=== PATIENT | female | born 1985 | race Caucasian/White ===

== ENCOUNTER 2022-08-17 10:40 | Outpatient (OUT) | payer MEDICAID, SELFPAY ==
[2022-08-17 11:05] LABS: Adenovirus F 40/41 NOT DETECTED (NOT DETECTE); Astrovirus NOT DETECTED (NOT DETECTE); Campylobacter NOT DETECTED (NOT DETECTE); Cryptosporidium NOT DETECTED (NOT DETECTE); Cyclospora cayetanensis NOT DETECTED (NOT DETECTE); E coli 0157 NOT DETECTED (NOT DETECTE); Entamoeba histolytica NOT DETECTED (NOT DETECTE); Enteroaggregative E.coli NOT DETECTED (NOT DETECTE); Enterotoxigenic E. coli NOT DETECTED (NOT DETECTE); Giardia lamblia NOT DETECTED (NOT DETECTE); Norovirus GI/GII NOT DETECTED (NOT DETECTE); Plesiomonas shigelloides NOT DETECTED (NOT DETECTE); Rotavirus A NOT DETECTED (NOT DETECTE); Salmonella NOT DETECTED (NOT DETECTE); Sapovirus NOT DETECTED (NOT DETECTE); Shiga-like toxin-producing E.C NOT DETECTED (NOT DETECTE); Shigella/Enteroinvasive E.coli NOT DETECTED (NOT DETECTE); Vibrio NOT DETECTED (NOT DETECTE); Vibrio cholerae NOT DETECTED (NOT DETECTE); Yersinia enterocolitica NOT DETECTED (NOT DETECTE)
[2022-08-17 14:43] LABS: Enteropathogenic E.coli DETECTED (NOT DETECTE)
== END 2022-08-17 10:41 | disposition home or self-care (01) ==
LOC: LAB 10:47
PROVIDERS: PCP Nurse Practitioner Family; Visit Provider Nurse Practitioner Family
DX: K58.9 Irritable bowel syndrome, unspecified (principal)
CPT/HCPCS: 87507

== ENCOUNTER 2022-09-01 10:50 | Outpatient (OUT) | payer MEDICAID, SELFPAY ==
[2022-09-07 11:42] LABS: Adenovirus F 40/41 NOT DETECTED (NOT DETECTE); Astrovirus NOT DETECTED (NOT DETECTE); Campylobacter NOT DETECTED (NOT DETECTE); Cryptosporidium NOT DETECTED (NOT DETECTE); Cyclospora cayetanensis NOT DETECTED (NOT DETECTE); Entamoeba histolytica NOT DETECTED (NOT DETECTE); Enteroaggregative E.coli NOT DETECTED (NOT DETECTE); Enterotoxigenic E. coli NOT DETECTED (NOT DETECTE); Giardia lamblia NOT DETECTED (NOT DETECTE); Norovirus GI/GII NOT DETECTED (NOT DETECTE); Plesiomonas shigelloides NOT DETECTED (NOT DETECTE); Rotavirus A NOT DETECTED (NOT DETECTE); Salmonella NOT DETECTED (NOT DETECTE); Sapovirus NOT DETECTED (NOT DETECTE); Shiga-like toxin-producing E.C NOT DETECTED (NOT DETECTE); Shigella/Enteroinvasive E.coli NOT DETECTED (NOT DETECTE); Vibrio NOT DETECTED (NOT DETECTE); Vibrio cholerae NOT DETECTED (NOT DETECTE); Yersinia enterocolitica NOT DETECTED (NOT DETECTE)
[2022-09-07 11:43] LABS: Enteropathogenic E.coli DETECTED (NOT DETECTE)
== END 2022-09-01 10:51 | disposition home or self-care (01) ==
PROVIDERS: PCP Nurse Practitioner Family; Visit Provider Nurse Practitioner Family
DX: K58.9 Irritable bowel syndrome, unspecified (principal)
CPT/HCPCS: 87493; 87507

== ENCOUNTER 2022-10-20 14:20 | Outpatient (OUT) | payer MEDICAID, SELFPAY ==
[2022-10-20 16:23] LABS: Bilirubin Urine NEGATIVE (NEGATIVE); Blood Urine NEGATIVE (NEGATIVE); Clarity Urine CLEAR (CLEAR); Color Urine YELLOW (YELLOW); Glucose Urine UA NEGATIVE (NEGATIVE); Ketones Urine NEGATIVE (NEGATIVE); Leukocyte Esterase Urine NEGATIVE (NEGATIVE); Nitrite Urine NEGATIVE (NEGATIVE); Protein Urine NEGATIVE (NEG/TRACE); Specific Gravity Urine >=1.030 (1.005-1.025); Urobilinogen Urine 0.2 EU/dL (0.2-1.0)
[2022-10-20 16:26] LABS: Urine Microscopic Indicated NO
== END 2022-10-20 14:21 | disposition home or self-care (01) ==
LOC: LAB 14:23
PROVIDERS: PCP Nurse Practitioner Family; Visit Provider Nurse Practitioner Family
DX: R10.84 Generalized abdominal pain (principal)
CPT/HCPCS: 81003

== ENCOUNTER 2022-10-20 16:33 | Outpatient (REF) | payer MEDICAID, SELFPAY ==
[2022-10-27 20:08] LABS: Age Gdln ACOG Testing Note (.); Chlamydia, NAA Negative (Negative); Gonococcus, NAA Negative (Negative); HPV Aptima Negative (Negative); IGP,CtNg,AptimaHPV,rfx16/18,45 Note (.)
== END 2022-10-20 16:34 | disposition home or self-care (01) ==
LOC: LAB 16:33
PROVIDERS: PCP Nurse Practitioner Family; Visit Provider Nurse Practitioner Family
DX: Z12.4 Encounter for screening for malignant neoplasm of cervix (principal)
CPT/HCPCS: 87624; G0145

== ENCOUNTER 2023-02-01 00:37 | Emergency (ER) | payer MEDICAID, SELFPAY ==
[2023-02-01 00:41] VITALS: BP 136/81; PULSE 97; RESP 18; TEMP 36.6; O2SAT 98; BMI 39.4
--- NOTE | 2023-02-01 01:00 | ED_ITS ---
HPI - Dental/Oral General Chief complaint: Dental/Oral Stated complaint: DENTAL PAIN Time Seen by Provider: 02/01/23 00:54 Source: patient Mode of arrival: walk-in Limitations: no limitations History of Present Illness HPI Narrative: presents with dental abscess. has been on clindamycin and now has increased pain. No fever or nausea. pain radiating into her left ear and neck Related Data Home Medications Medication Instructions Recorded Confirmed clindamycin HCl 150 mg capsule 450 mg PO TID 02/01/23 02/01/23 Allergies Allergy/AdvReac Type Severity Reaction Status Date / Time No Known Drug Allergies Allergy Verified 02/01/23 00:47 Review of Systems ROS Status of ROS 10 or more systems reviewed and unremark able except as noted in history and below Exam Constitutional Vital Signs, click to edit/add: Last Vital Signs Temp 97.9 F 02/01/23 00:41 Pulse 97 H 02/01/23 00:41 Resp 18 02/01/23 00:41 BP 136/81 02/01/23 00:41 Pulse Ox 98 02/01/23 00:41 Common normals: no apparent distress, average body habitus, oriented x3, no limitations, healthy appearing and alert HENMT Other: mild swelling along side her left lower molar Eye Common normals: EOMs intact bilaterally and conjunctivae normal Respiratory Common normals: normal respiratory effort and no retractions GI Common normals: Normal to inspection, nondistended, normoactive bowel sounds present, soft to palpation and non-tender Extremity Common normals: normal to inspection and full ROM Neuro Common normals: CN's II-XII intact bilaterally, moves all extremities, no focal motor deficits and no sensory deficits noted Psych Appearance: grossly normal Course Vital Signs Vital signs: Vital Signs Temperature 97.9 F 02/01/23 00:41 Pulse Rate 97 H 02/01/23 00:41 Respiratory Rate 18 02/01/23 00:41 Blood Pressure 136/81 02/01/23 00:41 Pulse Oximetry 98 02/01/23 00:41 Temperature 97.9 F 02/01/23 00:41 Pulse Rate 97 H 02/01/23 00:41 Respiratory Rate 18 02/01/23 00:41 Blood Pressure 136/81 02/01/23 00:41 Pulse Oximetry 98 02/01/23 00:41 MDM - Dental/Oral MDM Narrative Medical decision making narrative: patient presents with dental abscess that is progressing despite taking clindamycin. will switch to augmentin. She also has a yeast infection. Patient is to follow up with her dentist Discharge Plan Discharge Chief Complaint: Dental/Oral Clinical Impression: Vaginitis, Dental abscess Prescriptions / Home Meds: No Action clindamycin HCl 150 mg capsule 450 mg PO TID Instructions: Dental Abscess (ED), Vaginal Discharge (ED) Referrals: RIGOBERTO CHAVEZ [Primary Care Provider] - 1 week
[2023-02-01] MEDS: AMOXICILLIN/POTASSIUM CLAV 1 TAB TABLET PO (01:14)
[2023-02-01] MEDS: PREDNISONE 20 MG TABLET 40 MG PO (01:14)
== END 2023-02-01 01:17 | disposition home or self-care (01) ==
LOC: ER 00:44
PROVIDERS: Emergency Provider Internal Medicine; PCP Nurse Practitioner Family
DX: N76.0 Acute vaginitis (principal); K04.7 Periapical abscess without sinus
CPT/HCPCS: 99283

== ENCOUNTER 2023-03-08 15:28 | Outpatient (REF) | payer MEDICAID, SELFPAY ==
--- OUTSIDE RECORDS SUMMARY | 2023-03-08 15:38 | XMS_ITS | CCD ---
Author Name Unknown Address [address] [place] [address] Organization [facility] Care Team Providers Care Film Historian Name Role Phone AdánMj Garces Primary Care Provider CATES, MJ Referring Unavailable CATES, MJ Primary Care Unavailable CATES, MJ Referring Unavailable CATES, MJ Primary Care Unavailable CATES, MJ Referring Unavailable CATES, MJ Primary Care Unavailable CONTRERAS ARCE Admitting Unavailable CONTRERAS ARCE Attending Unavailable BIBI CHAVEZ Primary Care Unavailable ARLENE LEONE Admitting Unavailable ARLENE LEONE Attending Unavailable REQUEST, NONE LISTED Primary Care Unavaila ble SHYAM, DOMO SHERIDAN Consulting Unavailable SCOTT, BIBI Attending Unavailable SCOTT, BIBI Admitting Unavailable SCOTT, BIBI Primary Care Unavailable REQUEST, NONE LISTED Primary Care Unavaila ble KARASIK, DR CANTU Consulting Unavailable KARASIK, DR CANTU Attending Unavailable KARASIK, DR CANTU Admitting Unavailable REQUEST, DR NONE LISTED Primary Care Unavaila ble KARASIK, DR CANTU Consulting Unavailable KARASIK, DR CANTU Attending Unavailable KARASIK, DR CANTU Admitting Unavailable KARASIK, DR CANTU Attending Unavailable KARASIK, DR CANTU Admitting Unavailable REQUEST, NONE LISTED Primary Care Unavaila ble KARASIK, DR CANTU Consulting Unavailable ZIEBER, DR FRANCISCO Bell Consulting Unavailable BIBI CHAVEZ Attending Unavailable SCOTT, BIBI Admitting Unavailable BIBI CHAVEZ Consulting Unavailable REQUEST, NONE LISTED Primary Care Unavaila ble KARASIK, DR CANTU Attending Unavailable REQUEST, NONE LISTED Primary Care Unavaila ble KARASIK, DR CANTU Consulting Unavailable KARASIK, DR CANTU Admitting Unavailable SCOTT, BIBI Attending Unavailable SCOTT, BIBI Admitting Unavailable SCOTT, BIBI Primary Care Unavailable SCOTT, BIBI Consulting Unavailable SCOTT, BIBI Attending Unavailable SCOTT, BIBI Admitting Unavailable SCOTT, BIBI Primary Care Unavailable SCOTT, BIBI Consulting Unavailable SCOTT, BIBI Consulting Unavailable SCOTT, BIBI Attending Unavailable SCOTT, BIBI Admitting Unavailable SCOTT, BIBI Primary Care Unavailable KEVIN, DR FRANCISCO Bell Consulting Unavailable REQUEST, DR NONE LISTED Primary Care Unavaila ble PAY, DR ECKERT Attending Unavailable PAY, DR ECKERT Admitting Unavailable PAY, DR ECKERT Consulting Unavailable NILEvaristo Medrano Attending Unavailable SCOTT, BIBI S Referring Unavailable MD Moe Villagomez Attending Provider MIKE Chavez Primary Care Provider [phone] Moe Villagomez Attending Unavailable Moe Villagomez Admitting Unavailable Scott, Bibi Mariae Primary Care Unavailable Ortega Alberto Unavailable Allergies Allergy Classification Reported Allergen(s) Allergy Type Date of Onset Reaction(s) Facility (2 sources) Latex Propensity to adverse reactions to drug [address] [place] [address] (2 sources) Latex Drug allergy (disorder) [address] [place] [address] Repository (1 source) Nitrofurantoin Drug Allergy [facility] Repository (1 source) No Known Medication Allergies; Translations: [No Known Medication Allergies] Propensity to adverse reactions (disorder) [facility] Repository Medications Current Medications Medication Drug Class(es) Dates Sig (Normalized) Sig (Original) acetaminophen 500 mg oral tablet (2 sources) Start: 07-24-2019 End: 07-31-2019 acetaminophen (APAP EXTRA STRENGTH) 500 MG tablet Indications: Acute right-sided low back pain with right-sided sciatica Take 2 tabs every 8 hours as needed for pain. DO NOT exceed 4 grams in 24 hours. 42 tablet 0 07/24/2019 07/31/2019 Active cyclobenzaprine hydrochloride 10 mg oral tablet (2 sources) Muscle Relaxant Start: 07-15-2019 take 1 tablet by mouth three times daily cyclobenzaprine (FLEXERIL) 10 MG tablet TAKE 1 TABLET BY MOUTH THREE TIMES A DAY 0 07/15/2019 Active predniSONE 10 mg oral tablet (2 sources) Start: 07-24-2019 take 6 tablets by mouth once daily in the morning, then take 1 tablet by mouth once daily, then take 2 tablets by mouth once daily, then take 3 tablets by mouth once daily, then take 4 tablets by mouth once daily, then take 5 tablets by mouth predniSONE (DELTASONE) 10 MG tablet Indications: Acute right-sided low back pain with right-sided sciatica Take six tabs by mouth QAM on day 1, five tabs day 2, four tabs day 3, three tabs day 4, two tabs day 5, and one tab day 6. 21 tablet 0 07/24/2019 Active Problems Active Problems Problem Classification Problem Date Documented Da te Episodic/Chronic Genitourinary symptoms and ill-defined conditions (8 sources) Frequency of micturition; Translations: [Dysuria] Onset: 11-22-2020 Episodic Malaise and fatigue (4 sources) Other fatigue; Translations: [OTHER FATIGUE] Onset: 10-04-2021 Episodic Noninfectious gastroenteritis (2 sources) Noninfective gastroenteritis and colitis, unspecified; Translations: [Noninfective gastroenteritis and colitis, unspecified] Onset: 11-08-2021 Episodic Other gastrointestinal disorders (1 source) Irritable bowel syndrome without diarrhea; Translations: [IRRITABLE BOWEL SYND W/O DIARRHEA] Onset: 10-05-2021 Chronic Other gastrointestinal disorders (1 source) Diarrhea, unspecified; Translations: [DIARRHEA UNSPECIFIED] Onset: 10-05-2021 Episodic Other gastrointestinal disorders (1 source) Change in bowel habit; Translations: [Change in bowel habit] Onset: 10-16-2022 Episodic Unclassified (1 source) THROMBOCYTOSIS UNSPECIFIED; Translations: [THROMBOCYTOSIS UNSPECIFIED] Onset: 10-05-2021 Unclassified (3 sources) COUGH, UNSPECIFIED; Translations: [COUGH, UNSPECIFIED] Onset: 02-08-2021 Unclassified (4 sources) CONTACT W/AND (SUSP) EXPOS COVID-19; Translations: [CONTACT W/AND (SUSP) EXPOS COVID-19] Onset: 02-08-2021 Past or Other Problems Problem Classification Problem Date Documented Date Episodic/Chronic Abdominal pain (6 sources) Epigastric pain; Translations: [Pelvic and perineal pain] Onset: 01-17-2021 Episodic Cancer of cervix (1 source) Atypical squamous cells of undetermined significance on cytologic smear of cervix (ASC-US); Translations: [ASC US ON CYTOLOGIC SMEAR OF CERVIX] Onset: 07-06-2021 Episodic Chronic obstructive pulmonary disease and bronchiectasis (1 source) Bronchitis, not specified as acute or chronic; Translations: [BRONCHITIS NOT SPEC ACUTE/CHRON] Onset: 02-08-2021 Episodic Diabetes mellitus without complication (1 source) Other abnormal glucose; Translations: [OTHER ABNORMAL GLUCOSE] Onset: 07-14-2021 Episodic Immunizations and screening for infectious disease (1 source) Encounter for screening for human papillomavirus (HPV); Translations: [ENC SCREENING HUMAN PAPILLOMAVIRUS] Onset: 12-26-2020 Episodic Other female genital disorders (5 sources) Other specified noninflammatory disorders of vagina; Translations: [OTH SPEC NONINFLAMMATORY D/O VAGINA] Onset: 12-06-2020 Episodic Other screening for suspected conditions (not mental disorders or infectious disease) (4 sources) Encounter for screening for malignant neoplasm of cervix; Translations: [ENC SCREENING MALIG NEOPLASM CERV] Onset: 12-21-2020 Episodic Other upper respiratory infections (1 source) Acute pharyngitis, unspecified; Translations: [ACUTE PHARYNGITIS UNSPECIFIED] Onset: 03-20-2021 Episodic Residual codes; unclassified (1 source) Acquired absence of both cervix and uterus; Translations: [ACQUIRED ABSENCE BOTH CERVIX AND UTERUS] Onset: 11-24-2020 Episodic Spondylosis; intervertebral disc disorders; other back problems (1 source) Acute back pain with sciatica; Translations: [Acute right-sided low back pain with right-sided sciatica] Episodic Unclassified (1 source) CONTACT W/AND (SUSP) EXPOS COVID-19; Translations: [CONTACT W/AND (SUSP) EXPOS COVID-19] Onset: 03-17-2021 Unclassified (1 source) COUGH, UNSPECIFIED; Translations: [COUGH, UNSPECIFIED] Onset: 02-07-2021 Results Test Name Value Interpretation Reference Range Facility Amphetamine Screen Ql (U)Ord ered By: Moe Villagomez on 10-16-2022 Amphetamines Ql (U) Negative Negative [facility] Barbiturates [Presence] in U rine by Screen methodOrdered By: Moe Villagomez on 10-16-2022 Barbiturates Screen Ql (U) Negative Negative [facility] Benzodiazepines Screen Ql (U )Ordered By: Moe Villagomez on 10-16-2022 Benzodiazepines Ql (U) Negative Negative [facility] Benzoylecgonine [Presence] i n Urine by Screen methodOrdered By: Moe Villagomez on 10-16-2022 Benzoylecgonine Screen Ql (U) Negative Negative [facility] Cannabinoids [Presence] in U rine by Screen methodOrdered By: Moe Villagomez on 10-16-2022 Cannabinoids Screen Ql (U) Positive Negative [facility] Comment on above: These are unconfirme d results and should not be used for legal purposes. Drug Cut-Off Concentration: AMPH 1000 ng/mL MURPHY 200 ng/mL MESHA 200 ng/mL COCM 300 ng/mL OP 300 ng/mL PCP 25 ng/mL THC 20 ng/mL Drug Screen,Urineon 10-17-19 Amphetamine Screen,Urine Negative Normal Negative [facility] Comment on above: Performed By: #### U RDS #### [address] Barbiturate Screen,Urine Negative Normal Negative [facility] Comment on above: Performed By: #### U RDS #### [address] Benzodiazepines Screen,Urine Negative Normal Negative [facility] Comment on above: Performed By: #### U RDS #### [address] Cannabinoid Screen,Urine Positive High Negative [facility] Comment on above: Result Comment: Thes e are unconfirmed results and should not be used for legal purposes. Drug Cut-Off Concentration: AMPH 1000 ng/mL MURPHY 200 ng/mL MESHA 200 ng/mL COCM 300 ng/mL OP 300 ng/mL PCP 25 ng/mL THC 20 ng/mL PERFORMED BY: [place] [address] PATHOLOGIST MIXING ENGINEER JAILENE MATIAS M.D. Performed By: #### U RDS #### [address] Cocaine Screen,Urine Negative Normal Negative [facility] Comment on above: Performed By: #### U RDS #### [facility] [address] [place] [address] Opiate Screen,Urine Negative Normal Negative [facility] Comment on above: Performed By: #### U RDS #### [facility] [address] Phencyclidine Screen,Urine Negative Normal Negative [facility] Comment on above: Performed By: #### U RDS #### [facility] [address] [place] [address] Gastrointestinal Profile, PC [place] 10-16-2022 Adenovirus F 40/41 Not detected Normal Not Detected [facility] Comment on above: Order Comment: SOURC E OF SPECIMEN: stool Performed By: #### G I PROFILE, STL #### [facility] , #### CUSTOOL #### [facility] [address] [place] [address] Astrovirus Not detected Normal Not Detected [facility] Comment on above: Order Comment: SOURC E OF SPECIMEN: stool Performed By: #### G I PROFILE, STL #### [facility] , #### CUSTOOL #### [facility] [address] [place] [address] C Difficile Toxin A/B Not detected Normal Not Detected [facility] Comment on above: Order Comment: SOURC E OF SPECIMEN: stool Performed By: #### G I PROFILE, STL #### [facility] , #### CUSTOOL #### [facility] [address] [place] [address] Campylobacter Not detected Normal Not Detected [facility] Comment on above: Order Comment: SOURC E OF SPECIMEN: stool Performed By: #### G I PROFILE, STL #### [facility] , #### CUSTOOL #### [facility] [address] [place] [address] Cryptosporidium Not detected Normal Not Detected [facility] Comment on above: Order Comment: SOURC E OF SPECIMEN: stool Performed By: #### G I PROFILE, STL #### [facility] , #### CUSTOOL #### [facility] [address] [place] [address] Cyclospora cayetanensis Not detected Normal Not Detected [facility] Comment on above: Order Comment: SOURC E OF SPECIMEN: stool Performed By: #### G I PROFILE, STL #### [facility] , #### CUSTOOL #### [facility] [address] [place] [address] [place] E coli O157 Not applicable Normal Not Detected [facility] Comment on above: Order Comment: SOURC E OF SPECIMEN: stool Performed By: #### G I PROFILE, STL #### [facility] , #### CUSTOOL #### [facility] [address] [place] [address] Entamoeba histolytica Not detected Normal Not Detected [facility] Comment on above: Order Comment: SOURC E OF SPECIMEN: stool Performed By: #### G I PROFILE, STL #### [facility] , #### CUSTOOL #### [facility] [address] [place] [address] [place] Enteroaggregative E coli Not detected Normal Not Detected [facility] Comment on above: Order Comment: SOURC E OF SPECIMEN: stool Performed By: #### G I PROFILE, STL #### [facility] , #### CUSTOOL #### [facility] [address] [place] [address] [place] Enteropathogenic E coli Not detected Normal Not Detected [facility] Comment on above: Order Comment: SOURC E OF SPECIMEN: stool Performed By: #### G I PROFILE, STL #### [facility] , #### CUSTOOL #### [facility] [address] [place] [address] [place] Enterotoxigenic E coli Not detected Normal Not Detecte d [facility] Comment on above: Order Comment: SOURC E OF SPECIMEN: stool Performed By: #### G I PROFILE, STL #### [facility] , #### CUSTOOL #### [facility] [address] [place] [address] Giardia lamblia Not detected Normal Not Detected [facility] Comment on above: Order Comment: SOURC E OF SPECIMEN: stool Performed By: #### G I PROFILE, STL #### [facility] , #### CUSTOOL #### [address] Norovirus GI/GII Not detected Normal Not Detected [facility] Comment on above: Order Comment: SOURC E OF SPECIMEN: stool Performed By: #### G I PROFILE, STL #### [facility] , #### CUSTOOL #### [facility] [address] [place] [address] Plesiomonas shigelloides Not detected Normal Not Detected [facility] Comment on above: Order Comment: SOURC E OF SPECIMEN: stool Performed By: #### G I PROFILE, STL #### [facility] , #### CUSTOOL #### [facility] [address] [place] [address] Rotavirus A Not detected Normal Not Detected [facility] Comment on above: Order Comment: SOURC E OF SPECIMEN: stool Performed By: #### G I PROFILE, STL #### [facility] , #### CUSTOOL #### [facility] [address] [place] [address] Salmonella Not detected Normal Not Detected [facility] Comment on above: Order Comment: SOURC E OF SPECIMEN: stool Performed By: #### G I PROFILE, STL #### [facility] , #### CUSTOOL #### [facility] [address] [place] [address] Sapovirus Not detected Normal Not Detected [facility] Comment on above: Order Comment: SOURC E OF SPECIMEN: stool Result Comment: Perf ormed at: - [facility] [id number] Intake Rn: Nela Mota MD, Phone: [phone] PERFORMED BY: [place] [address] PATHOLOGIST MIXING ENGINEER JAILENE MATIAS M.D. Performed By: #### G I PROFILE, STL #### [facility] , #### CUSTOOL #### [address] Jfyal-mlibv-oalmcefxn E coli Not detected Normal Not Detected [facility] Comment on above: Order Comment: SOURC E OF SPECIMEN: stool Performed By: #### G I PROFILE, STL #### [facility] , #### CUSTOOL #### [address] Shigella/Enteroinvasiv e E coli Not detected Normal Not Detected [facility] Comment on above: Order Comment: SOURC E OF SPECIMEN: stool Performed By: #### G I PROFILE, STL #### [facility] , #### CUSTOOL #### [facility] [address] [place] [address] Vibrio Not detected Normal Not Detected [facility] Comment on above: Order Comment: SOURC E OF SPECIMEN: stool Performed By: #### G I PROFILE, STL #### [facility] , #### CUSTOOL #### [facility] [address] [place] [address] Vibrio cholerae Not detected Normal Not Detected [facility] Comment on above: Order Comment: SOURC E OF SPECIMEN: stool Performed By: #### G I PROFILE, STL #### [facility] , #### CUSTOOL #### [facility] [address] [place] [address] Yersinia enterocolitica Not detected Normal Not Detected [facility] Comment on above: Order Comment: SOURC E OF SPECIMEN: stool Performed By: #### G I PROFILE, STL #### [facility] , #### CUSTOOL #### [facility] [address] [id number] [facility] 10-16-2022 L - -------- Specimen: [id number] Received: 10/16/22 Status: ALLA Ceballos Num: [id number] Spec Type: Surgical Subm Dr: Moe Villagomez MD Tissues: A Colon Biopsy (COL) Procedures: Candace LEAL/Veena L4 -------- Age/ Patient Sex Location Account Attending Physician -------- Christine Land 36/F [id number] Moe Villagomez MD -------- SPEC NUM: [id number] RECD: 10/16/22 STATUS: ALLA CEBALLOS NUM: [id number] ELAYNE: 10/16/22- SUBM DR: Moe Villagomez MD ENTERED: 10/16/[address] [facility] [address]: SPEC TYPE: Surgical DEPT: S ENTERED BY: [id number] RECV BY: [id number] ORDERED: HE/2, Gross/Micro L4 ORDERED: HE/2, Gross/Micro L4 Pathological Diagnosis Colon, random biopsy: - Colonic mucosa within normal limits - No evidence of microscopic colitis identified Clinical Information Change in bowel habits, rule out microscopic colitis Gross Description Received in formalin labeled with the patient's name, date of and random colon rule out microscopic colitis are three holland tissues ranging from 0.3 x 0.2 x 0.1 cm to 0.5 x 0.3 x 0.1 cm. Entirely submitted in one cassette labeled A1. Microscopic Description Two H E slides reviewed. The microscopic examination confirms the diagnosis. -------- Specimen: [id number] Received: 10/16/22 Status: ALLA Ceballos Num: [id number] Spec Type: Surgical Subm Dr: Moe Villagomez MD Tissues: A Colon Biopsy (COL) Procedures: HE/2, Gross/Micro L4 -------- Patient: EricChristine Wagner [id number] (Continued) -------- Specimen: [id number] Received: 10/16/22 (Continued) Signed (signature on file) Grzegorz Sahu MD 10/18/22 1514 -------- Specimen: [id number] Received: 10/16/22 Status: ALLA Ceballos Num: [id number] Spec Type: Surgical Subm Dr: Moe Villagomez MD Tissues: A Colon Biopsy (COL) Procedures: Candace LEAL/Veena L4 -------- Patient: Christine Land [id number] (Continued) -------- Specimen: [id number] Received: 10/16/22 (Continued) CPT Codes 77279 -------- -------- Specimen: [id number] Received: 10/16/22 Status: ALLA Ceballos Num: [id number] Spec Type: Surgical Subm Dr: Moe Villagomez MD Tissues: A Colon Biopsy (COL) Procedures: TIMOTHY/Candace Rothman/Veena L4 -------- Patient: Christine Land [id number] (Continued) -------- Signed (signature on file) Grzegorz Sahu MD 10/18/[address] [facility] Opiates [Presence] in Urine by Screen methodOrdered By: Moe Villagomez on 10-16-2022 Opiates Screen Ql (U) Negative Negative [facility] Phencyclidine Screen Ql (U)O rdered By: Moe Villagomez on 10-16-2022 Phencyclidine Ql (U) Negative Negative [facility] Stool Cultureon 10-16-2022 Stool culture Negative for Shiga Toxin 1 Negative for Shiga Toxin 2 A negative Shiga Toxin result may occur if the antigen level in the specimen is below the detection limit of the assay. Stool culture results No Salmonella, Shigella, Campy or E. coli 0157:H7 Isolated PERFORMED BY: [place] [address] PATHOLOGIST MIXING ENGINEER JAILENE MATIAS M.D. [facility] Comment on above: Performed By: #### G I PROFILE, STL #### [facility] , #### CUSTOOL #### [address] [facility] 10-02-2022 Lab Reports [id number] .[id number]:127 [facility] Physician Referralon 023 Physician Referral [id number] .00CD:127 [facility] 09-04-2022 Lab Reports [id number] .[id number]:127 [facility] Physician Referralon 023 Physician Referral [id number] .[id number]:127 [facility] CULTURE URINEon 10-09-2021 CULTURE URINE Isolate 1 Escherichia coli >100,000 cfu/mL of ORGANISM 1 Escherichia coli ANTIBIOTIC M.I.C RX STATUS Ampicillin >=32 R F Ampicillin/Sulbactam >=32 R F Piperacillin/Tazobact am 8 S F Cefazolin >=64 R F Ceftazidime 32 R F Ceftriaxone <=1 S F Ertapenem >=8 R F Imipenem 0.5 S F Amikacin <=2 S F Gentamicin <=1 S F Tobramycin <=1 S F Ciprofloxacin <=0.25 S F Levofloxacin 0.25 S F Nitrofurantoin <=16 S F Trimethoprim/Sulfamet hoxazole <=20 S F Normal [facility] Comment on above: Performed By: #### E RUR #### [facility] [address] [place] [address] Dr. Eli Ellison UA RANDOM W/MICROSCOPICon BACTERIA NONE SEEN Normal NONE SEEN [facility] Comment on above: Performed By: #### U AMIC #### [facility] [address] [place] [address] Dr. Eli Ellison Bilirubin Ql (U) Negative Normal NEGATIVE [facility] Comment on above: Performed By: #### U AMIC #### [facility] [address] [place] [address] Dr. Eli Ellison CAST NONE SEEN Normal NONE SEEN [facility] Comment on above: Performed By: #### U AMIC #### [facility] [address] [place] [address] Dr. Eli Ellison Clarity (U) CLEAR Normal CLEAR [facility] Comment on above: Performed By: #### U AMIC #### [facility] [address] [place] [address] Dr. Eli Ellison Color (U) LT. YELLOW Normal YELLOW [facility] Comment on above: Performed By: #### U AMIC #### [facility] [address] [place] [address] Dr. Eli Ellison Crystals LM Nom (Urine sed) NONE SEEN Normal NONE SEEN [facility] Comment on above: Performed By: #### U AMIC #### [facility] [address] [place] [address] Dr. Eli Ellison Epithelial cells LM Ql (Urine sed) MODERATE Abnormal NONE SEEN /RARE [facility] Comment on above: Performed By: #### U AMIC #### [facility] [address] [place] [address] Dr. Eli Ellison Glucose Ql (U) Negative Normal NEGATIVE [facility] Comment on above: Performed By: #### U AMIC #### [facility] [address] [address] [address] Eli Ellison Hemoglobin Ql (U) Negative Normal NEGATIVE [facility] Comment on above: Performed By: #### U AMIC #### [facility] [address] [place] [address] Dr. lEi Ellison Ketones Ql (U) Negative Normal NEGATIVE [facility] Comment on above: Performed By: #### U AMIC #### [facility] [address] [place] [address] Dr. Eli Ellison LEUKOCYTES Negative Normal NEGATIVE [facility] Comment on above: Performed By: #### U AMIC #### [facility] [address] [place] [address] Dr. Eli Elliosn MUCOUS NONE SEEN Normal NONE SEEN [facility] Comment on above: Performed By: #### U AMIC #### [facility] [address] [place] [address] Dr. Eli Ellison Nitrite Ql (U) Negative Normal NEGATIVE [facility] Comment on above: Performed By: #### U AMIC #### [facility] [address] [place] [address] Dr. Eli Ellison pH (U) 7.0 [pH] Normal 5-9 [facility] [facility] Comment on above: Performed By: #### U AMIC #### [facility] [address] [place] [address] Dr. Eli Ellison RBC NONE SEEN Abnormal 0-2 [facility] Comment on above: Performed By: #### U AMIC #### [facility] [address] [place] [address] Dr. Eli Ellison SPEC GRAVITY 1.020 Normal 1.005-<=1.025 [facility] Comment on above: Performed By: #### U AMIC #### [facility] [address] [place] [address] Dr. Eli Ellison UA PROTEIN Negative Normal NEGATIVE/ TRACE [facility] Comment on above: Performed By: #### U AMIC #### [facility] [address] [address] [address] Eli Ellison Urobilinogen Qn (U) 0.2 {Alexandre'U}/dL Normal 0.2 - 1. 0 [facility] Comment on above: Performed By: #### U AMIC #### [facility] [address] [place] [address] Dr. Eli Ellison WBC NONE SEEN Normal NONE SEEN [facility] Comment on above: Performed By: #### U AMIC #### [facility] [address] [place] [address] Dr. Eli Ellison HELICOBACTER PYLORI AG STOOL on 10-06-2021 H. pylori Stool Ag, EIA Negative Normal Negative [facility] Comment on above: Performed By: #### E RUR #### [facility] [address] [place] [address] Dr. Eli Ellison AMYLASEon 10-04-2021 Amylase [Catalytic activity/Vol] 52 U/L Normal 25-115 [facility] Comment on above: Performed By: #### L IPA, FATIMAH, CMP #### [facility] [address] [place] [address] Dr. Eli Ellison CBC AUTO DIFFon 10-04-2021 BASO # 0.0 103/ul Normal 0.0-0.1 [facility] Comment on above: Performed By: #### E RUR #### [facility] [address] [place] [address] Dr. Eli Ellison Basophils/100 WBC (Bld) 0.4 % Normal 0.2-2.0 [facility] Comment on above: Performed By: #### E RUR #### [facility] [address] [place] [address] Dr. Eli Ellison EO # 0.1 103/ul Normal 0.0-0.7 [facility] Comment on above: Performed By: #### E RUR #### [facility] [address] [place] [address] Dr. Eli Ellison Eosinophils/100 WBC (Bld) 0.8 % Critically low 0.9-7.0 [facility] Comment on above: Performed By: #### E RUR #### [facility] [address] [place] [address] Dr. Eli Ellison Erythrocyte distribution width (RBC) [Ratio] 13.4 % Normal 11.0-15.0 [facility] Comment on above: Performed By: #### E RUR #### [facility] [address] [place] [address] Dr. Eli Ellison Hematocrit (Bld) [Volume fraction] 42.4 % Normal 36.0-48.0 [facility] Comment on above: Performed By: #### E RUR #### [facility] [address] [place] [address] Dr. Eli Ellison Hemoglobin (Bld) [Mass/Vol] 13.5 g/dL Normal 12.0-16.0 [facility] Comment on above: Performed By: #### E RUR #### [facility] [address] [place] [address] Dr. Eli Ellison IG # 0.03 10e3/ul Normal 0.00-0.03 [facility] Comment on above: Performed By: #### E RUR #### [facility] [address] [place] [address] Dr. Eli Ellison IG % 0.3 % Normal 0.0-0.5 [facility] Comment on above: Performed By: #### E RUR #### [facility] [address] [place] [address] Dr. Eli Ellison LYMPH # 3.0 103/ul Normal 1.2-3.8 [facility] Comment on above: Performed By: #### E RUR #### [facility] [address] [place] [address] Dr. Eli Ellison Lymphocytes/100 WBC (Bld) 29.5 % Normal 20.5-60.0 [facility] Comment on above: Performed By: #### E RUR #### [facility] [address] [place] [address] Dr. Eli Ellison MANUAL DIFF REQ NO Normal [facility] Comment on above: Performed By: #### E RUR #### [facility] [address] [place] [address] Dr. Eli Ellison MCH (RBC) [Entitic mass] 27.3 pg Normal 26.7-34.0 [facility] Comment on above: Performed By: #### E RUR #### [facility] [address] [place] [address] Dr. Eli Ellison MCHC (RBC) [Mass/Vol] 31.8 g/dL Normal 29.9-35.2 [facility] Comment on above: Performed By: #### E RUR #### [facility] [address] [place] [address] Dr. Eli Ellison MCV (RBC) [Entitic vol] 85.8 fL Normal 81.0-99.0 [facility] Comment on above: Performed By: #### E RUR #### [facility] [address] [place] [address] Dr. Eli Ellison MONO # 0.6 103/ul Normal 0.3-0.8 [facility] Comment on above: Performed By: #### E RUR #### [facility] [address] [place] [address] Dr. Eli Ellison Monocytes/100 WBC (Bld) 6.3 % Normal 1.7-12.0 [facility] Comment on above: Performed By: #### E RUR #### [facility] [address] [place] [address] Dr. Eli Ellison NEUT # 6.3 103/ul Normal 1.4-6.5 [facility] Comment on above: Performed By: #### E RUR #### [facility] [address] [place] [address] Dr. Eli Ellison Neutrophils/100 WBC (Bld) 62.7 % Normal 43.0-75.0 [facility] Comment on above: Performed By: #### E RUR #### [facility] [address] [place] [address] Dr. Eli Ellison Platelet mean volume (Bld) [Entitic vol] 9.3 fL Critically low 9.5-13.5 [facility] Comment on above: Performed By: #### E RUR #### [facility] [address] [place] [address] Dr. Eli Ellison PLT 356 103/ul Normal 150-450 [facility] Comment on above: Performed By: #### E RUR #### [facility] [address] [place] [address] Dr. Eli Ellison RBC 4.94 106/ul Normal 4.20-5.40 [facility] Comment on above: Performed By: #### E RUR #### [facility] [address] [place] [address] Dr. Eli Ellison WBC 10.1 103/ul Normal 4.0-11.0 [facility] Comment on above: Performed By: #### E RUR #### [facility] [address] [place] [address] Dr. Eli Ellison LIPASEon 10-04-2021 Lipase [Catalytic activity/Vol] 81.0 U/L Normal 73.0-393.0 [facility] Comment on above: Performed By: #### L FATIMAH COLE CMP #### [facility] [address] [place] [address] Dr. Eli Ellison PROF 14(COMP METB)on 022 Albumin [Mass/Vol] 3.6 g/dL Normal 3.4-5.0 [facility] Comment on above: Performed By: #### L FATIMAH COLE CMP #### [facility] [address] [place] [address] Dr. Eli Ellison Albumin/Globulin [Mass ratio] 1.2 {ratio} Normal [facility] Comment on above: Performed By: #### L IPA, FATIMAH, CMP #### [facility] [address] [address] [address] Eli Ellison ALP [Catalytic activity/Vol] 72 U/L Normal 46-116 [facility] Comment on above: Performed By: #### L DOUGLAS FATIMAH, CMP #### [facility] [address] [address] [address] Eli Ellison ALT [Catalytic activity/Vol] 55 U/L Normal 14-59 [facility] Comment on above: Performed By: #### L IPA FATIMAH, CMP #### [facility] [address] [address] [address] Eli Ellison Anion gap [Moles/Vol] 13.3 mmol/L Normal [facility] Comment on above: Performed By: #### L DOUGLAS FATIMAH, CMP #### [facility] [address] [address] [address] Eli Ellison AST [Catalytic activity/Vol] 31 U/L Normal 15-37 [facility] Comment on above: Performed By: #### L DOUGLAS FATIMAH, CMP #### [facility] [address] [address] [address] Eli Ellison Bilirubin [Mass/Vol] 0.8 mg/dL Normal 0.2-1.0 [facility] Comment on above: Performed By: #### L DOUGLAS FATIMAH, CMP #### [facility] [address] [address] [address] Eli Ellison Calcium [Mass/Vol] 8.6 mg/dL Normal 8.5-10.1 [facility] Comment on above: Performed By: #### L IPA FATIMAH, CMP #### [facility] [address] [address] [address] Eli Ellison Chloride [Moles/Vol] 103 mmol/L Normal 98-107 [facility] Comment on above: Performed By: #### L IPA FATIMAH, CMP #### [facility] [address] [address] [address] Eli Ellison CO2 [Moles/Vol] 26.4 mmol/L Normal 21.0-32.[address] [facility] Comment on above: Performed By: #### L DOUGLAS FATIMAH, CMP #### [facility] [address] [address] [address] Eli Ellison Creatinine [Mass/Vol] 0.44 mg/dL Critically low 0.55-1.02 [facility] Comment on above: Performed By: #### L IPA FATIMAH, CMP #### [facility] [address] [address] [address] Eli Ellison EGFR-AF GERMAN >60 Normal >=[address] [facility] Comment on above: Performed By: #### L DOUGLAS FATIMAH, CMP #### [facility] [address] [address] [address] Eli Ellison EGFR-NON AF GERMAN >60 Normal >=60 [facility] Comment on above: Performed By: #### L DOUGLAS FATIMAH, CMP #### [facility] [address] [address] [address] Eli Ellison Globulin (S) [Mass/Vol] 2.9 g/dL Normal [facility] Comment on above: Performed By: #### L DOUGLAS FATIMAH, CMP #### [facility] [address] [address] [address] Eli Ellison Glucose [Mass/Vol] 91 mg/dL Normal 74-106 [facility] Comment on above: Performed By: #### L DOUGLAS FATIMAH, CMP #### [facility] [address] [address] [address] Eli Ellison Potassium [Moles/Vol] 3.7 mmol/L Normal 3.5-5.1 [facility] Comment on above: Performed By: #### L DOUGLAS FATIMAH, CMP #### [facility] [address] [address] [address] Eli Ellison Protein [Mass/Vol] 6.5 g/dL Normal 6.4-8.2 [facility] Comment on above: Performed By: #### L IPA FATIMAH, CMP #### [facility] [address] [address] [address] Eli Ellison Sodium [Moles/Vol] 139 mmol/L Normal 136-145 [facility] Comment on above: Performed By: #### L FATIMAH COLE, CMP #### [facility] [address] [address] [address] Eli Ellison Urea nitrogen [Mass/Vol] 7.0 mg/dL Normal 7.0-18.0 [facility] Comment on above: Performed By: #### L FATIMAH COLE, CMP #### [facility] [address] [address] [address] Eli Ellison Urea nitrogen/Creatinine [Mass ratio] 15.9 mg/mg Normal [facility] Comment on above: Performed By: #### L FATIMAH COLE, CMP #### [facility] [address] [address] [address] Eli Ellison GI PANEL (PCR)on 07-12-2021 Adenovirus F 40/41 Not detected Normal NOT DETECTED [facility] Comment on above: Performed By: #### G IPANEL #### [facility] [address] [place] [address] Dr. Eli Ellison Astrovirus Not detected Normal NOT DETECTED [facility] Comment on above: Performed By: #### G IPANEL #### [facility] [address] [address] [address] Eli Jarrett Diff toxin A/B Not detected Normal NOT DETECTED [facility] Comment on above: Performed By: #### G IPANEL #### [facility] [address] [address] [address] Eli Ellison Campylobacter Not detected Normal NOT DETECTED [facility] Comment on above: Performed By: #### G IPANEL #### [facility] [address] [address] [address] Eli Ellison Cryptosporidium Not detected Normal NOT DETECTED [facility] Comment on above: Performed By: #### G IPANEL #### [facility] [address] [place] [address] Dr. Eli Ellison Cyclos. Cayetanensis Not detected Normal NOT DETECTED [facility] Comment on above: Performed By: #### G IPANEL #### [facility] [address] [place] [address] Dr. Eli Ellison E. Coli O157 Not Applicable Normal Not Applicable [facility] Comment on above: Performed By: #### G IPANEL #### [facility] [address] [place] [address] Dr. Eli Ellison E. histolytica Not detected Normal NOT DETECTED [facility] Comment on above: Performed By: #### G IPANEL #### [facility] [address] [place] [address] Dr. Eli Ellison EAEC Not detected Normal NOT DETECTED [facility] Comment on above: Performed By: #### G IPANEL #### [facility] [address] [place] [address] Dr. Eli Ellison EIEC Not detected Normal NOT DETECTED [facility] Comment on above: Performed By: #### G IPANEL #### [facility] [address] [place] [address] Dr. Eli Ellison EPEC Not detected Normal NOT DETECTED [facility] Comment on above: Performed By: #### G IPANEL #### [facility] [address] [place] [address] Dr. Eli Ellison ETEC Not detected Normal NOT DETECTED [facility] Comment on above: Performed By: #### G IPANEL #### [facility] [address] [place] [address] Dr. Eli Vo. Lamblia Not detected Normal NOT DETECTED [facility] Comment on above: Performed By: #### G IPANEL #### [facility] [address] [place] [address] Dr. Eli GOMEZL CONTROLS PASSED Normal [facility] Comment on above: Performed By: #### G IPANEL #### [facility] [address] [place] [address] Dr. Eli FRANCES TERESA HEADER GI PANEL BACTERIA Normal [facility] Comment on above: Performed By: #### G IPANEL #### [facility] [address] [place] [address] Dr. Eli FRANCESHD ECOLI GI PANEL DIARRHEAGENIC E.COLI / SHIGELLA Normal [facility] Comment on above: Performed By: #### G IPANEL #### [facility] [address] [address] [address] Eli DE PAZ INFO SEE BELOW Normal [facility] Comment on above: Result Comment: EAEC - Enteroaggregative E. Coli EPEC- Enteropathogenic E. Coli ETEC- Enterotoxigenic E. Coli lt/st STEC- Shigella-like toxin-producing E. Coli stx1/stx2 EIEC- Shigella/Enteroinvasive E. Coli Performed By: #### G IPANEL #### [facility] [address] [address] [address] Eli DE PAZ PARASITES GI PANEL PARASITES Normal [facility] Comment on above: Performed By: #### G IPANEL #### [facility] [address] [place] [address] Dr. Eli DE PAZ VIRUS GI PANEL VIRUSES Normal [facility] Comment on above: Performed By: #### G IPANEL #### [facility] [address] [place] [address] Dr. Eli Ellison Norovirus GI/GII Not detected Normal NOT DETECTED [facility] Comment on above: Performed By: #### G IPANEL #### [facility] [address] [address] [address] Eli Ellison P. Shigelloides Not detected Normal NOT DETECTED [facility] Comment on above: Performed By: #### G IPANEL #### [facility] [address] [address] [address] Eli Ellison Rotavirus A Not detected Normal NOT DETECTED [facility] Comment on above: Performed By: #### G IPANEL #### [facility] [address] [address] [address] Eli Ellison Salmonella Not detected Normal NOT DETECTED [facility] Comment on above: Performed By: #### G IPANEL #### [facility] [address] [place] [address] Dr. Eli Ellison Sapovirus Not detected Normal NOT DETECTED [facility] Comment on above: Performed By: #### G IPANEL #### [facility] [address] [place] [address] Dr. Eli Ellison STEC Not detected Normal NOT DETECTED [facility] Comment on above: Performed By: #### G IPANEL #### [facility] [address] [place] [address] Dr. Eli Ellison Vibrio Not detected Normal NOT DETECTED [facility] Comment on above: Performed By: #### G IPANEL #### [facility] [address] [place] [address] Dr. Eli Ellison Vibrio Cholera Not detected Normal NOT DETECTED [facility] Comment on above: Performed By: #### G IPANEL #### [facility] [address] [place] [address] Dr. Eli Ellison Y. Enterocolitica Not detected Normal NOT DETECTED [facility] Comment on above: Performed By: #### G IPANEL #### [facility] [address] [place] [address] Dr. Eli Ellison GLYCOHEMOGLOBIN A1Con 2021 ADA RECOMMENDATION SEE BELOW Normal [facility] Comment on above: Result Comment: ADA RECOMMENDED LIMIT 4.0 - 6.0 ADA THERAPEUTIC TARGET < 7.0 ACTION SUGGESTED > 7.0 Performed By: #### A 1C #### [facility] [address] [place] [address] Dr. Eli Ellison Glucose [Mass/Vol] 105 mg/dL Normal [facility] Comment on above: Performed By: #### A 1C #### [facility] [address] [place] [address] Dr. Eli Ellison HbA1c (Bld) [Mass fraction] 5.3 % Normal 4.5-6.2 [facility] Comment on above: Performed By: #### A 1C #### [facility] [address] [place] [address] Dr. Eli Ellison PAP ACOG PANEL 2: 30 to 65on 07-12-2021 . . Normal [facility] Comment on above: Result Comment: Perf ormed at: WB Performed By: #### [id number] #### [facility] [address] [place] [address] Dr. Eli Ellison Age Gdln ACOG Testing 30-65 Normal [facility] Comment on above: Performed By: #### [id number] #### [facility] [address] [address] [address] Eli Ellison DIAGNOSIS: Comment Normal [facility] Comment on above: Result Comment: NEGA TIVE FOR INTRAEPITHELIAL LESION OR MALIGNANCY. Performed at: WB Performed By: #### [id number] #### [facility] [address] [address] [address] Eli Ellison HPV Aptima Negative Normal Negative [facility] Comment on above: Result Comment: This nucleic acid amplification test detects fourteen high-risk HPV types (16,18,31,33,35,39,45,51,52,56,58,59,66,68) without differentiation. Performed at: =G Performed By: #### [id number] #### [facility] [address] [place] [address] Dr. Eli Ellison Methodology: Comment Normal [facility] Comment on above: Result Comment: This liquid based ThinPrep(R) pap test was screened with the use of an image guided system. Performed at: WB Performed By: #### [id number] #### [facility] [address] [place] [address] Dr. Eli Ellison Note: Comment Normal [facility] Comment on above: Result Comment: The Pap smear is a screening test designed to aid in the detection of premalignant and malignant conditions of the uterine cervix. It is not a diagnostic procedure and should not be used as the sole means of detecting cervical cancer. Both false-positive and false-negative reports do occur. . Performed at: WB Performed By: #### [id number] #### [facility] [address] [address] [address] Eli Ellison Performed by: Comment Normal [facility] Comment on above: Result Comment: Ravi Moreno, Gang Leader (ASCP) Performed at: WB Performed By: #### [id number] #### [facility] [address] [place] [address] Dr. Eli Ellison Specimen adequacy: Comment Normal [facility] Comment on above: Result Comment: Sati sfactory for evaluation. No endocervical component is identified. Performed at: WB Performed By: #### [id number] #### [facility] [address] [place] [address] Dr. Eli Ellison VAGINITIS/VAGINOSIS DNA PROB Willem 07-06-2021 Therese species Negative Normal Negative [facility] Comment on above: Performed By: #### E RUR #### [facility] [address] [place] [address] Dr. Eli Ellison Gardnerella vaginalis Negative Normal Negative [facility] Comment on above: Performed By: #### E RUR #### [facility] [address] [place] [address] Dr. Eli Ellison Trichomonas vaginalis Negative Normal Negative [facility] Comment on above: Performed By: #### E RUR #### [facility] [address] [place] [address] Dr. lEi Ellison CULTURE THROATon 03-17-2021 CULTURE THROAT Culture Observations : NORMAL RESPIRATORY DAVID. Normal [facility] Comment on above: Performed By: #### E RUR #### [facility] Laboratory [address] [place] [address] Dr. Eli Ellison Covid-19 PCR (CVDTB)on 02-20 SARS-CoV-2 (COVID-19) RNA NANCY+probe Ql (Unsp spec) Not detected Normal NOT DETECTED The [facility] Comment on above: Result Comment: This test is not yet approved or cleared by the [place] FDA. When there are no FDA-approved or cleared tests available, and other criteria are met, FDA can make tests available under an emergency access mechanism called an Emergency Use Authorization (EUA). The EUA for this test is supported by the Telecommunications Equipment Installer of Health and Human Service's (HHS's) declaration that circumstances exist to justify the emergency use of in vitro diagnostics for the detection and/or diagnosis of the virus that causes COVID-19. This EUA will remain in effect (meaning this test can be used) for the duration of the COVID-19 declaration justifying emergency of IVDs, unless it is terminated or revoked by FDA (after which the test may no longer be used). When diagnostic testing is negative, the possibility of a false negative should be considered in the context of a patient's recent exposures and the presence of clinical signs and symptoms consistent with SARS-CoV-2. Performed By: #### E RUR #### [facility] Laboratory [address] [place] [address] Dr. Eli Ellison STREPT SCREENon 03-17-2021 STREP SCREEN A Negative Normal NEGATIVE [facility] Comment on above: Performed By: #### E RUR #### [facility] Laboratory [address] [place] [address] Dr. Eli Ellison [facility] SARS-CoV-2 (COVID-19) RNA NANCY+probe Ql (Unsp spec) Not detected Normal NOT DETECTED [facility] Comment on above: Result Comment: When diagnostic testing is negative, the possibility of a false negative should be considered in the context of a patient's recent exposures and the presence of clinical signs and symptoms consistent with SARS-CoV-2. This test is not yet approved or cleared by the [place] FDA. When there are no FDA-approved or cleared tests available, and other criteria are met, FDA can make tests available under an emergency access mechanism called an Emergency Use Authorization (EUA). The EUA for this test is supported by the Telecommunications Equipment Installer of Health and Human Service's declaration that circumstances exist to justify the emergency use of in vitro diagnostics for the detection and/or diagnosis of the virus that causes COVID-19. This EUA will remain in effect for the duration of the COVID-19 declaration justifying emergency of IVDs, unless it is terminated or revoked by the FDA (after which the test may no longer be used). Performed By: #### C VDTBH #### [facility] Laboratory [address] [place] [address] Dr. Eli Ellison ER URINE PROFILEon 1 Bilirubin Ql (U) SMALL Abnormal NEGATIVE The [facility] Comment on above: Performed By: #### A 1C #### [facility] Laboratory [address] [place] [address] Dr. Eli Ellison Clarity (U) CLEAR Normal CLEAR [facility] Comment on above: Performed By: #### A 1C #### [facility] Laboratory [address] [place] [address] Dr. Eli Ellison Color (U) YELLOW Normal YELLOW [facility] Comment on above: Performed By: #### A 1C #### [facility] Laboratory [address] [place] [address] Dr. Eli Ellison ERUAHD A micrscopic examination will be performed if indicated. Normal [facility] Comment on above: Performed By: #### A 1C #### [facility] Laboratory [address] [place] [address] Dr. Eli Ellison Glucose Ql (U) Negative Normal NEGATIVE [facility] Comment on above: Performed By: #### A 1C #### [facility] Laboratory [address] [place] [address] Dr. Eli Ellison Hemoglobin Ql (U) Negative Normal NEGATIVE [facility] Comment on above: Performed By: #### A 1C #### [facility] Laboratory [address] [place] [address] Dr. Eli Ellison Ketones Ql (U) 40 mg/dl Abnormal NEGATIVE [facility] Comment on above: Performed By: #### A 1C #### [facility] Laboratory [address] [place] [address] Dr. Eli Ellison LEUKOCYTES Negative Normal NEGATIVE [facility] Comment on above: Performed By: #### A 1C #### [facility] Laboratory [address] [place] [address] Dr. Eli Ellison Nitrite Ql (U) Negative Normal NEGATIVE [facility] Comment on above: Performed By: #### A 1C #### [facility] [address] [place] [address] Dr. Eli Ellison pH (U) 5.5 [pH] Normal 5-9 [facility] Comment on above: Performed By: #### A 1C #### [facility] Laboratory [address] [place] [address] Dr. Eli Ellison SPEC GRAVITY 1.025 Normal 1.005-<=1.025 [facility] Comment on above: Performed By: #### A 1C #### [facility] Laboratory [address] [address] [address] Eli Ellison UA PROTEIN Negative Normal NEGATIVE/ TRACE [facility] Comment on above: Performed By: #### A 1C #### [facility] [address] [address] [address] Eli Ellison UR MICRO IND NOT INDICATED Normal [facility] Comment on above: Performed By: #### A 1C #### [facility] [address] [address] [address] Eli Ellison Urobilinogen Qn (U) 1.0 {Alexandre'U}/dL Normal 0.2 - 1. 0 [facility] Comment on above: Performed By: #### A 1C #### [facility] [address] [address] [address] Eli Ellison URon 02-07-2021 , QUAL Negative Normal NEGATIVE [facility] Comment on above: Performed By: #### A 1C #### [facility] [address] [address] [address] Eli Ellison XR CHEST 1 Von 02-07-2021 XR CHEST 1 V EXAMINATION: XR CHES T 1 V HISTORY: SHORTNESS OF BREATH , cough COMPARISON: No relevant comparison available. FINDINGS: LUNGS: Underexpanded lungs with moderate opacities within the mid and lower left lung. VASCULATURE: No increased pulmonary vasculature. PLEURA: No pneumothorax, effusion, or pleural thickening. CARDIAC: No cardiomegaly or cardiac silhouette abnormality. MEDIASTINUM: No visible mass or adenopathy. BONES: No fracture or visible bone lesion. OTHER: Negative. IMPRESSION: 1. Moderate left pulmonary infiltrates suggestive of pneumonia. Follow-up imaging to document clearing is recommended. Electronically authenticated by: FRANCISCO BROWN Date: 2021-02-07 10:18 Normal [facility] US PELVIS AND TRANSVAGon US PELVIS AND TRANSVAG EXAMINATION: US PELVIS AND TRANSVAG HISTORY: Pelvic and perineal pain COMPARISON: No relevant comparison available. TECHNIQUE: Transabdominal and transvaginal sonographic examination. FINDINGS: UTERUS: Hysterectomy. RIGHT OVARY: Not seen. LEFT OVARY: Not seen. CUL-DE-SAC: No visible free fluid. BLADDER: Nondistended. OTHER: None. IMPRESSION: 1. Limited examination due to patient discomfort and overlying bowel. 2. Hysterectomy. 3. Neither ovary was visualized. No overtly suspicious adnexal findings. Electronically authenticated by: FRANCISCO BROWN Date: 2021-01-17 15:35 Normal [facility] PAP ACOG PANEL 2: 30 to 65on 12-27-2020 . . Normal [facility] Comment on above: Result Comment: Perf ormed at: WB Performed By: #### E RUR #### [facility] Laboratory [address] [place] [address] Dr. Eli Ellison Age Gdln ACOG Testing 30-65 Normal [facility] Comment on above: Performed By: #### E RUR #### [facility] [address] [place] [address] Dr. Eli Ellison DIAGNOSIS: Comment Abnormal [facility] Comment on above: Result Comment: EPIT HELIAL CELL ABNORMALITY. ATYPICAL SQUAMOUS CELLS OF UNDETERMINED SIGNIFICANCE (ASC-US). Performed at: WB Performed By: #### E RUR #### [facility] [address] [place] [address] Dr. Eli Ellison Electronically signed by: Comment Normal [facility] Comment on above: Result Comment: Martha Orona MD, Pathologist Performed at: WB Performed By: #### E RUR #### [facility] [address] [address] [address] Eli Ellison HPV Aptima Negative Normal Negative [facility] Comment on above: Result Comment: This nucleic acid amplification test detects fourteen high-risk HPV types (16,18,31,33,35,39,45,51,52,56,58,59,66,68) without differentiation. Performed at: =G Performed By: #### E RUR #### [facility] [address] [place] [address] Dr. Eli Ellison Methodology: Comment Normal [facility] Comment on above: Result Comment: This liquid based ThinPrep(R) pap test was screened with the use of an image guided system. Performed at: WB Performed By: #### E RUR #### [facility] [address] [address] [address] Eli Ellison Note: Comment Normal [facility] Comment on above: Result Comment: The Pap smear is a screening test designed to aid in the detection of premalignant and malignant conditions of the uterine cervix. It is not a diagnostic procedure and should not be used as the sole means of detecting cervical cancer. Both false-positive and false-negative reports do occur. . Performed at: WB Performed By: #### E RUR #### [facility] Laboratory [address] [place] [address] Dr. Eli Ellison Pathologist Provided ICD10 Comment Normal [facility] Comment on above: Result Comment: [id number] Performed at: WB Performed By: #### E RUR #### [facility] [address] [place] [address] Dr. Eli Ellison Performed by: Comment Normal [facility] Comment on above: Result Comment: Katarina Jacobson, Gang Leader (ASCP) Performed at: WB Performed By: #### E RUR #### [facility] [address] [place] [address] Dr. Eli Ellison Specimen adequacy: Comment Normal [facility] Comment on above: Result Comment: Sati sfactory for evaluation. No endocervical component is identified. Performed at: WB Performed By: #### E RUR #### [facility] [address] [place] [address] Dr. Eli Ellison VAGINITIS/VAGINOSIS DNA PROB Willem 12-08-2020 Therese species Negative Normal Negative [facility] Comment on above: Performed By: #### V AGINT #### [facility] [address] [place] [address] Dr. Eli Ellison Gardnerella vaginalis Negative Normal Negative [facility] Comment on above: Performed By: #### V AGINT #### [facility] [address] [place] [address] Dr. Eli Ellison Trichomonas vaginalis Negative Normal Negative [facility] Comment on above: Performed By: #### V AGINT #### [facility] [address] [place] [address] Dr. Eli Ellison ER URINE PROFILEon 1 Bilirubin Ql (U) Negative Normal NEGATIVE [facility] Comment on above: Performed By: #### E RUR #### [facility] [address] [place] [address] Dr. Eli Ellison Clarity (U) CLEAR Normal CLEAR [facility] Comment on above: Performed By: #### E RUR #### [facility] [address] [place] [address] Dr. Eli Ellison Color (U) YELLOW Normal YELLOW [facility] Comment on above: Performed By: #### E RUR #### [facility] [address] [place] [address] Dr. Eli OLSEN A micrscopic examination will be performed if indicated. Normal [facility] Comment on above: Performed By: #### E RUR #### [facility] [address] [place] [address] Dr. Eli Ellison Glucose Ql (U) Negative Normal NEGATIVE [facility] Comment on above: Performed By: #### E RUR #### [facility] [address] [place] [address] Dr. Eli Ellison Hemoglobin Ql (U) Negative Normal NEGATIVE [facility] Comment on above: Performed By: #### E RUR #### [facility] [address] [place] [address] Dr. Eli Ellison Ketones Ql (U) TRACE Abnormal NEGATIVE [facility] Comment on above: Performed By: #### E RUR #### [facility] [address] [place] [address] Dr. Eli Ellison LEUKOCYTES Negative Normal NEGATIVE [facility] Comment on above: Performed By: #### E RUR #### [facility] [address] [place] [address] Dr. Eli Ellison Nitrite Ql (U) Negative Normal NEGATIVE [facility] Comment on above: Performed By: #### E RUR #### [facility] [address] [place] [address] Dr. Eli Ellison pH (U) 5.5 [pH] Normal 5-9 [facility] Comment on above: Performed By: #### E RUR #### [facility] [address] [place] [address] Dr. Eli Ellison SPEC GRAVITY >=1.030 Abnormal 1.005-<=1.025 [facility] Comment on above: Performed By: #### E RUR #### [facility] [address] [address] [address] Eli Ellison UA PROTEIN Negative Normal NEGATIVE/ TRACE [facility] Comment on above: Performed By: #### E RUR #### [facility] [address] [place] [address] Dr. Eli Ellison UR MICRO IND NOT INDICATED Normal [facility] Comment on above: Performed By: #### E RUR #### [facility] [address] [place] [address] Dr. Eli Ellison Urobilinogen Qn (U) 0.2 {Alexandre'U}/dL Normal 0.2 - 1. 0 [facility] Comment on above: Performed By: #### E RUR #### [facility] Laboratory [address] [place] [address] Dr. [facility] Barley IgE <0.34 Normal 0.00-0.34 [facility] Comment on above: Performed By: #### I FOODC #### [employer] [address] [place] [address] Intake Rn: Spencer Feliciano MD Beef IgE <0.34 Normal 0.00-0.34 [facility] Comment on above: Performed By: #### I FOODC #### [employer] [address] [place] [id number] Intake Rn: Spencer Feliciano MD Cabbage IgE <0.34 Normal 0.00-0.34 [facility] Comment on above: Performed By: #### I FOODC #### [employer] [address] [place] [address] Intake Rn: Spencer Feliciano MD Carrot IgE <0.34 Normal 0.00-0.34 [facility] Comment on above: Performed By: #### I FOODC #### [address] [address] Intake Rn: Spencer Feliciano MD Chicken IgE <0.34 Normal 0.00-0.34 [facility] Comment on above: Performed By: #### I FOODC #### [address] [address] Intake Rn: Spencer Feliciano MD Codfish IgE <0.34 Normal 0.00-0.34 [facility] Comment on above: Performed By: #### I FOODC #### [address] [address] Intake Rn: Spencer Feliciano MD [place] IgE <0.34 Normal 0.00-0.34 [facility] Comment on above: Performed By: #### I FOODC #### [address] [address] Intake Rn: Spencer Feliciano MD Crab IgE <0.34 Normal 0.00-0.34 [facility] Comment on above: Performed By: #### I FOODC #### [address] [address] Intake Rn: Spencer Feliciano MD Egg White IgE <0.34 Normal 0.00-0.34 [facility] Comment on above: Performed By: #### I FOODC #### [address] [address] Intake Rn: Spencer Feliciano MD Grape IgE <0.34 Normal 0.00-0.34 [facility] Comment on above: Performed By: #### I FOODC #### [address] [address] Intake Rn: Spencer Feliciano MD Lettuce IgE <0.34 Normal 0.00-0.34 [facility] Comment on above: Performed By: #### I FOODC #### [address] [address] Intake Rn: Spencer Feliciano MD Milk (Cow) IgE <0.34 Normal 0.00-0.34 [facility] Comment on above: Performed By: #### I FOODC #### [address] [address] Intake Rn: Spencer Feliciano MD [employer] IgE <0.34 Normal 0.00-0.34 [facility] Comment on above: Performed By: #### I FOODC #### [address] [address] Intake Rn: Spencer Feliciano MD Oat IgE <0.34 Normal 0.00-0.34 [facility] Comment on above: Performed By: #### I FOODC #### [address] [address] Intake Rn: Spencer Feliciano MD [place] IgE <0.34 Normal 0.00-0.34 [facility] Comment on above: Performed By: #### I FOODC #### [address] [address] Intake Rn: Spencer Feliciano MD Peanut IgE <0.34 Normal 0.00-0.34 [facility] Comment on above: Performed By: #### I FOODC #### [address] [address] Intake Rn: Spencer Feliciano MD Pepper C. annuum IgE <0.34 Normal 0.00-0.34 [facility] Comment on above: Performed By: #### I FOODC #### [employer] [address] [place] [id number] Intake Rn: Spencer Feliciano MD Pork IgE <0.34 Normal 0.00-0.34 [facility] Comment on above: Result Comment: ALLERGEN, INTERP, IMMUNOCAP SCORE IGE <=0.34 Class 0 No significant level detected 0.35 to 0.70 Class 1 Low 0.71 to 3.50 Class 2 Moderate 3.51 to 17.50 Class 3 High 17.51 to 50.00 Class 4 Very High 50.01 to 100.00 Class 5 Very High >100.00 Class 6 Very High units: kU/L Increasing ranges are reflective of increasing concentrations of allergen specific IgE. These concentrations may not correlate with the degree of clinical response or skin testing results when challenged with a specific allergen. The correlation of allergy laboratory results with the clinical history and in vivo reactivity to specific allergens is essential. A negative test may not rule out clinical allergy or even anaphylaxis. Performed By: #### I FOODC #### [facility] [address] [place] [address] Intake Rn: Spencer Feliciano MD Potato IgE <0.34 Normal 0.00-0.34 [facility] Comment on above: Performed By: #### I FOODC #### [employer] [address] [place] [address] Intake Rn: Spencer Feliciano MD Rice IgE <0.34 Normal 0.00-0.34 [facility] Comment on above: Performed By: #### I FOODC #### [employer] [address] [place] [address] [phone] Intake Rn: Spencer Feliciano MD [place] IgE <0.34 Normal 0.00-0.34 [facility] Comment on above: Performed By: #### I FOODC #### [employer] [address] [place] [address] [phone] Intake Rn: Spencer Feliciano MD Shrimp IgE <0.34 Normal 0.00-0.34 [facility] Comment on above: Performed By: #### I FOODC #### [address] [address] Intake Rn: Spencer Feliciano MD Soybean IgE <0.34 Normal 0.00-0.34 [facility] Comment on above: Performed By: #### I FOODC #### [address] [address] Intake Rn: Spencer Feliciano MD Tomato IgE <0.34 Normal 0.00-0.34 [facility] Comment on above: Performed By: #### I FOODC #### [address] [address] Intake Rn: Spencer Feliciano MD Tuna IgE <0.34 Normal 0.00-0.34 [facility] Comment on above: Performed By: #### I FOODC #### [address] [address] Intake Rn: Spencer Feliciano MD Wheat IgE <0.34 Normal 0.00-0.34 [facility] Comment on above: Performed By: #### I FOODC #### [address] [address] Intake Rn: Spencer Feliciano MD Celiac Disease Panel 09-11 Gliadin Deam Pep IgA 0.8 U/mL Normal <7.0 [facility] Comment on above: Result Comment: CELIAC INTERPRETATION <7.0 Negative 7.0-10.0 Equivocal >10.0 Positive units: U/mL Performed By: #### C ELP #### [address] [address] Intake Rn: Spencer Feliciano MD Gliadin Deam Pep IgG <0.4 Normal <7.0 [facility] Comment on above: Result Comment: CELIAC INTERPRETATION <7.0 Negative 7.0-10.0 Equivocal >10.0 Positive units: U/mL Performed By: #### C ELP #### [employer] [facility] [place], [place] [phone] Intake Rn: Spencer Feliciano MD Tiss Transglutam IgA 0.3 U/mL Normal <7.0 [facility] Comment on above: Result Comment: CELIAC INTERPRETATION <7.0 Negative 7.0-10.0 Equivocal >10.0 Positive units: U/mL Performed By: #### C ELP #### [employer] [address] [place] [address] [phone] Intake Rn: Spencer Feliciano MD Celiac Disease Panelon 09-10 IgA [Mass/Vol] 119 mg/dL Normal 70-400 [facility] Comment on above: Performed By: #### C ELP #### [facility] [address] [place] [address] [phone] Intake Rn: Spencer Feliciano MD Food, Comprehensiveon 2019 Immunoglobulin E 5 IU/mL Normal <101 [facility] Comment on above: Performed By: #### I FOODC #### [facility] [address] [place] [address] [phone] Intake Rn: Spencer Feliciano MD XR LUMBAR SPINE (2-3 VIEWS)o n 07-24-2019 XR LUMBAR SPINE (2-3 VIEWS) EXAMINATION: THREE XRAY VIEWS OF THE LUMBAR SPINE 07/24/2019 4:34 pm COMPARISON: None HISTORY: ORDERING SYSTEM PROVIDED HISTORY: Acute right-sided low back pain with right-sided sciatica TECHNOLOGIST PROVIDED HISTORY: lower back pain radiating to the right for 2 weeks Reason for Exam: RT DISTAL LOW BACK PAIN Acuity: Acute Type of Exam: Initial Additional signs and symptoms: RADIATES TO RT POSTERIOR HIP Relevant Medical/Surgical History: HX DDD FINDINGS: The curvature of the lumbar spine is within normal limits. The height of the lumbar vertebral bodies are maintained. There is mild facet arthropathy at L4-5 and L5-S1. No acute finding is identified by plain film imaging. An MRI could better evaluate the spinal canal contents if indicated. IMPRESSION: Mild facet arthropathy at L4-5 and L5-S1. No acute finding by plain film imaging. Interpreted by: Laine Khan MD Signed by: Laine Khan MD 07/24/19 Final result Normal [facility] Mild facet arthropathy at L4-5 and L5-S1. No acute finding by plain film imaging. [place], [place] EXAMINATION: THREE XRAY VIEWS OF THE LUMBAR SPINE 07/24/2019 4:34 pm COMPARISON: None HISTORY: ORDERING SYSTEM PROVIDED HISTORY: Acute right-sided low back pain with right-sided sciatica TECHNOLOGIST PROVIDED HISTORY: lower back pain radiating to the right for 2 weeks Reason for Exam: RT DISTAL LOW BACK PAIN Acuity: Acute Type of Exam: Initial Additional signs and symptoms: RADIATES TO RT POSTERIOR HIP Relevant Medical/Surgical History: HX DDD FINDINGS: The curvature of the lumbar spine is within normal limits. The height of the lumbar vertebral bodies are maintained. There is mild facet arthropathy at L4-5 and L5-S1. No acute finding is identified by plain film imaging. An MRI could better evaluate the spinal canal contents if indicated. [place], [place], [place] Incoming Radiant Results From [employer] - 07/24/2019 9:14 PM EDT EXAMINATION: THREE XRAY VIEWS OF THE LUMBAR SPINE 07/24/2019 4:34 pm COMPARISON: None HISTORY: ORDERING SYSTEM PROVIDED HISTORY: Acute right-sided low back pain with right-sided sciatica TECHNOLOGIST PROVIDED HISTORY: lower back pain radiating to the right for 2 weeks Reason for Exam: RT DISTAL LOW BACK PAIN Acuity: Acute Type of Exam: Initial Additional signs and symptoms: RADIATES TO RT POSTERIOR HIP Relevant Medical/Surgical History: HX DDD FINDINGS: The curvature of the lumbar spine is within normal limits. The height of the lumbar vertebral bodies are maintained. There is mild facet arthropathy at L4-5 and L5-S1. No acute finding is identified by plain film imaging. An MRI could better evaluate the spinal canal contents if indicated. IMPRESSION: Mild facet arthropathy at L4-5 and L5-S1. No acute finding by plain film imaging. [place] Vital Signs Date Time Vital Sign Value Performing Clinician Faci sagar 10-16-2022 09:37-0400 Diastolic blood pressure 71 mm[Hg] CREAM BUYER-C Bibi Chavez Work Phone: [facility] 10-16-2022 09:37-0400 Heart rate 86 /min CREAM BUYER-C Bibi Chavez Work Phone: [facility] 10-16-2022 09:37-0400 Respiratory rate 16 /min CREAM BUYER-C Bibi Chavez Work Phone: [facility] 10-16-2022 09:37-0400 SaO2% (BldA) [Mass fraction] 97 % CREAM BUYER-C Bibi Chavez Work Phone: [facility] 10-16-2022 09:37-0400 Systolic blood pressure 136 mm[Hg] CREAM BUYER-C Bibi Chavez Work Phone: [facility] 10-16-2022 07:48-0400 Body height 160.02 cm CREAM BUYER-C Bibi Chavez Work Phone: [facility] 10-16-2022 07:48-0400 Body temperature 98.2 [degF] CREAM BUYER-C Bibi Chavez Work Phone: [facility] 10-16-2022 07:48-0400 Body weight 104.32 kg CREAM BUYER-C Bibi Chavez Work Phone: [facility] Encounters Encounter Date Encounter Type Care Provider Facility Start: 10-16-2022 Telephone encounter [facility] Start: 10-16-2022 End: 10-16-2022 ambulatory Moe Villagomez Facility:[facility] Start: 10-16-2022 End: 10-16-2022 Admission to same day surgery center CREAM BUYER-C Bibi Chavez Work Phone: [facility] Work Phone: Start: 10-16-2022 End: 10-16-2022 ambulatory CREAM BUYER-C Bibi Ember Scott Work Phone: [facility] Work Phone: Start: 10-03-2022 ambulatory Evaristo DAVIS Facility :[facility] Start: 08-17-2022 ambulatory Evaristo DAVIS Facility:[facility] Start: 11-08-2021 ambulatory CONTRERAS Edward CLAUDE [facility] Start: 10-07-2021 End: 10-08-2021 ambulatory BIBI CHAVEZ Facility:[facility] Start: 10-04-2021 End: 10-05-2021 ambulatory BIBI CHAVEZ Facility:[facility] Start: 08-18-2021 ambulatory BIBI CHAVEZ Facility: [facility] Start: 07-12-2021 End: 07-13-2021 ambulatory BIBI CHAVEZ Facility:[facility] Start: 07-06-2021 Encounter for cervical smear to confirm findings of recent normal smear following initial abnormal smear DR ALONDRA JASON [facility] Start: 07-04-2021 End: 07-04-[address] ALONDRA JASON Facility:[facility] Start: 07-04-2021 End: 07-04-2021 Encounter for cervical smear to confirm findings of recent normal smear following initial abnormal smear DR ALONDRA JASON Facility:[facility] Start: 03-17-2021 End: 03-17-2021 ambulatory BIBI CHAVEZ Facility:[facility] Start: 02-07-2021 End: 02-07-[address] FRANCISCO BROWN Facility:[facility] Start: 01-17-2021 End: 01-18-[address] ALONDRA JASON Facility:[facility] Start: 12-21-2020 End: 12-21-2020 ambulatory NONE LISTED REQUEST Facility:[facility] Start: 12-06-2020 End: 12-06-[address] NONE LISTED REQUEST Facility:[facility] Start: 11-22-2020 End: 11-22-2020 ambulatory ARLENE LEONE Facility:[facility] Start: 09-11-2019 End: 09-12-2019 Patient encounter procedure [facility] Start: 07-24-2019 End: 07-27-2019 Patient encounter procedure [facility] Start: 07-24-2019 End: 07-26-2019 Subsequent hospital visit by physician Anastasia Spring Xray Rm 1 [facility] Radiology Comment on above: Acute right-sided lo w back pain with right-sided sciatica Procedures Date Procedure Procedure Detail Performing Clinician Start: 10-16-2022 Colonoscopy MIKE Chavez Work Phone: Start: 09-11-2019 Allergen spec ige cr ude allergen extract each MJ CATES Start: 09-11-2019 CELIAC DISEASE PANEL NIRALI CATES Start: 07-24-2019 Radex spine lumbosac ral 2/3 views MJ ACTES Start: 07-24-2019 Radex spine lumbosac ral 2/3 views Mj Mccain Work Phone: Plan of Treatment Date Care Activity Detail Author Start: 10-16-2022 Stool culture Stool Culture [facility] Start: 10-16-2022 End: 10-16-2022 [facility] Start: 10-21-2019 Influenza vaccination Flu vaccine (Season Ended) [place] Start: 08-27-2019 End: 08-27-2019 Office Visit 08/27/2019 Office Visit Primary Care Mj Mccain, CONFIGURATION CONSULTANT [employer] [address] [place] [address] [phone] [facility] Start: 12-14-2008 Screening for malignant neoplasm of cervix Cervical cancer screen [place] Start: 12-14-2006 DTaP/Tdap/Td vaccine (1 - Tdap) DTaP/Tdap/Td vaccine (1 - Tdap) [place] Start: 12-14-2002 HIV screening HIV screen [place] Start: 12-14-1988 Varicella vaccine (1 of 2 - 2-dose childhood series) Varicella vaccine (1 of 2 - 2-dose childhood series) [place] Campylobacter coli+jejuni+upsaliensis DNA [Presence] in Stool by NANCY with non-probe detection [facility] Clostridioides diffi cile toxin A+B tcdA+tcdB genes [Presence] in Stool by NANCY with non-probe detection [facility] Escherichia coli enteropathogenic eae gene [Presence] in Stool by NANCY with non-probe [facility] Escherichia coli enterotoxigenic ltA+st1a+st1b genes [Presence] in Stool by NANCY with [facility] Escherichia coli O15 7 DNA [Presence] in Stool by NANCY with non-probe detection [facility] Escherichia coli Stx 1 and Stx2 toxin stx1+stx2 genes [Presence] in Stool by NANCY with non-probe detection [facility] Infectious agent gen otype identification [facility] Plesiomonas shigello ides DNA [Presence] in Stool by NANCY with non-probe detection [facility] Salmonella enterica+ bongori DNA [Presence] in Stool by NANCY with non-probe detection [facility] Shigella species+EIE C invasion plasmid antigen H ipaH gene [Presence] in Stool by NANCY [facility] Vibrio cholerae DNA [Presence] in Stool by NANCY with non-probe detection [facility] Vibrio cholerae+parahaemolyticus+v ulnificus DNA [Presence] in Stool by NANCY with non-probe detection [facility] Yersinia enterocolit ica DNA [Presence] in Stool by NANCY with non-probe detection [facility] Payers Date Payer Category Payer Medicaid [id number] 2019 Unknown [facility] 2019-Present [address] [place] [id number] xxxxxxxxxxxx [id number] 2019 Unknown [id number] 1987 Unknown [id number] 2..[id number] 1987 Unknown [id number] 2.840.1.233236.3.579.2.175 1987 Unknown [id number] [id number] 1987 Unknown [id number] 2.16840.1.956777.3.579.2.173 1987 Unknown [id number] 2.16.840.1.968612.3.579.2.593 1987 Unknown [id number] 2.16.840.1.517829.3.579.2.593 1987 Unknown [id number] 2.16.840.1.839924.3.579.2.593 1987 Unknown [id number] 2.16.840.1.648801.3.579.2.593 1987 Unknown [id number] 2.16.840.1.669210.3.579.2.593 1987 Unknown [id number] 2.16.840.1.222722.3.579.2.593 1987 Unknown [id number] 2.16.840.1.693464.3.579.2.593 1987 Unknown [id number] 2.16.840.1.768546.3.579.2.593 1987 Unknown [id number] 2.16.840.1.602716.3.579.2.593 1987 Unknown [id number] 2.16.840.1.721712.3.579.2.593 1987 Unknown [id number] 2.16.840.1.545357.3.579.2.593 1987 Unknown [id number] 2.16.840.1.502978.3.579.2.727 1959 Self-pay 1957 Unknown [id number] Unknown [id number] 2.16.840.1.310089.3.579.2.531 Social History Date Type Detail Facility Start: 07-24-2019 Tobacco smoking stat [facility] Never smoker [place] Start: 07-24-2019 Alcohol intake Ex-drinker (finding) [place] Start: 07-24-2019 History SDOH Alcohol Frequency 1 [place] Sex Assigned At Not on file [place] Start: 1985 Sex Assigned At Female F [facility] Sex Assigned At Sex Assigned At Bir th Fanminder Other Goals Date Patient Goal Desired Activity /State History and physical note 10-16-2022 Note Date & Type Note Facility 10-16-2022 History and physical note Note Date/Time October 16, 2022 8:47am [facility] [address] [place] [address] Gastroenterology H&P Signed Patient: Christine Land MR#: [id number] : 1985 Acct:[id number] Age/Sex: 36 / F Adm Date: 3 Loc: Room: Type: [facility] Attending Dr: Moe Villagomez MD Copies to: MD Bibi Dailey CNP~ Date of Service: 10/16/2022 HISTORY & PHYSICAL: Patient's history with special attention to the cardiovascular, pulmonary systems and the current problem was reviewed with the patient immediately prior to the procedure. Present medications and doses reviewed in the EMR. Allergies and pertinent laboratory tests were also reviewedat this time in the EMR. The physical examination, as below, was then performed. Indication, assessment and HPI: 36-year-old female presents for colonoscopy to evaluate change in bowel habits with diarrhea. Family history of IBD. Family history of GI malignancy? No PHYSICAL EXAMINATION Mouth and Pharynx : Moist mucus membranes, normal dentition Cardiac: Regular rate, regular rhythm Pulmonary: Clear to auscultation bilaterally, no wheezing Neurological: Alert and oriented x3, no focal deficits noted Abdomen: Abdomen soft, non-tender REVIEW OF SYSTEMS Constitutional: Denies malaise, fevers Cardiovascular: Denies chest pain, palpitations Respiratory: Denies shortness of breath, wheezing Gastrointestinal: Per HPI Genitourinary: Denies dysuria, polyuria Musculoskeletal: Denies joint swelling, joint stiffness Neurological: Denies numbness, tingling Integumentary: Denies rashes, skin lesions Endocrine: Denies fatigue, weight loss Written informed consent obtained from the patient. Risks (including but not limited to perforation, infection, bloating, bleeding, need for emergent surgeryand loss of life), benefits and alternatives explained and questions answered. The patient verbalized understanding. Based on history patient is an appropriate candidate for the procedure. Moe Villagomez MD Documented By: Moe Villagomez MD 10/16/22 0846 Signed By: <Electronically signed by Moe Villagomez MD> 10/16/22 0847 [facility] Work Phone: Procedure note 10-16-2022 Note Date & Type Note Facility 10-16-2022 Procedure note [facility] Evaluation note Note Date & Type Note Facility Evaluation note No assessment information ming seo [facility] Work Phone: Evaluation note Note Date & Type Note Facility Evaluation note No Information [facility] Other History general Narrative - Reported Note Date & Type Note Facility History general Narrative - Reported Type Medical History ELEVATED CHOLESTEROL Surgical History PARTIAL HYSTERECTOMY Surgical History C SECTION X'S 2 WITH LYSIS OF ADHESIONS AFTER ONE OF THESE Surgical History TUBAL LIGATION Surgical History TONSILLECTOMY Surgical History APPENDECTOMY Hospitalization History SEE ABOVE [facility] Other Hospital Discharge instructions Note Date & Type Note Facility Hospital Discharge instructions Additional Instructions DISCHARGE INSTRUCTIONS FOR COLONOSCOPY WHAT TO EXPECT: - You may feel full, gassy or cramping after your procedure. In some cases, this may be from a few hours to a day. Walking may help relieve the discomfort. - You should begin to recover from anesthesia within 1 hour of the procedure, however may feel groggy for the next 24 hours. DO's AND DON'Ts: - Call your doctor right away if you have a hard abdomen, severe pain, are passing lots of bright red blood or clots. - Call your doctor if you develop any rashes, hives or difficulty breathing. - Let your doctor know if you have not had a bowel movement by 3 days after your procedure. - If you take 81 mg aspirin for your heart it is safe to resume this medication. - If you take other blood thinner medications your doctor will instruct you when these can safely be resumed. - Do NOT drive for 24 hours. - Do NOT operate machinery such as power tools, lawn mowers, snow blowers, sewing machines, etc. for 24 hours. - Avoid alcoholic beverages and drugs for allergies, nerves, or sleep. - Do NOT stay alone. Do NOT leave your child unattended. - Do NOT make important personal or business decisions or sign any legal documents. - Eat solid foods and drink liquids in smaller amounts than usual until normal appetite returns. If you should experience an upset stomach, liquids high in sugar content (soda, Tiago-Aid, non-acid juices) are recommended. - You can resume normal activities tomorrow. FOLLOW UP & RECOMMENDATIONS: -The GI office will make you a follow-up appointment -Notify the doctor if you have any problems. -Follow up with PCP. -Office number [phone]. 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 Advance Directive Response Recorded Date/ Time Advance Directives No October 16, 2022 7:03am Summary Purpose Family History Relationship Condition Age at Onset Recorded Date/T kelby grandparent Diabetes mellitus Unknown Malignant neoplasm of colon Unknown Not Specified Ulcerative colitis Unknown family member Heart disease Unknown Assessments Diagnosis Acute right-sided low back pain with right-sided sciatica Chief Complaint and Reason for Visit Chief Complaint Change in Bowel Habi ts, Diarrhea Additional Source Comments INFORMATION SOURCE (unrecogn ized section and content) DATE CREATED AUTHOR 09/14/2019 [facility] DATE CREATED AUTHOR AUTHOR'S ORGANIZ ATION 11/16/2021 [facility] DATE CREATED AUTHOR AUTHOR'S ORGANIZ ATION 11/20/2021 [facility] DATE CREATED AUTHOR AUTHOR'S ORGANIZ ATION 10/02/2022 [facility] [place] [facility] DATE CREATED AUTHOR AUTHOR'S ORGANIZ ATION 10/24/2022 [facility] Teams (unrecognized sec tion and content) Team Status: Active Member Role Status Dates MIKE Guerrero Primary Care Provider Active Team Status: Inactive Member Role Status Dates Moe Villagomez MD Attending Provider Active MIKE Guerrero Primary Care Provider Active REASON FOR VISIT (unrecogniz ed section and content) Orders per doctor FOR RECORDS PERTAINING TO PATIENTS WHO ARE OR HAVE BEEN ENROLLED IN A CHEMICAL DEPENDENCY/SUBSTANCEABUSE PROGRAM, SOME INFORMATION MAY BE OMITTED. This clinical summary was aggregated from multiple sources. Caution should be exercised in using it in the provision of clinical care. This summary normalizes information from multiple sources, and as a consequence, information in this document may materially change the coding, format and clinical context of patient data. In addition, data may be omitted in some cases. CLINICAL DECISIONS SHOULD BE BASED ON THE PRIMARY CLINICAL RECORDS. [email or web address]. provides no warranty or guarantee of the accuracy or completeness of information in this document.
== END 2023-03-08 15:29 | disposition home or self-care (01) ==
LOC: LAB 15:28
PROVIDERS: PCP Nurse Practitioner Family; Visit Provider Nurse Practitioner Family
DX: N89.8 Other specified noninflammatory disorders of vagina (principal)
CPT/HCPCS: 87070

== ENCOUNTER 2023-11-13 19:37 | Outpatient (REF) | payer MEDICAID, SELFPAY ==
--- OUTSIDE RECORDS SUMMARY | 2023-11-13 19:40 | XMS_ITS | CCD ---
Author Organization [facility] ion [facility] Care Team Providers [facility] Name Role Phone [facility] Primary Care Provider CATES ELDA Referring Unavailable CATES, ELDA Primary Care Unavailable CATES, ELDA Referring Unavailable CATES, ELDA Primary Care Unavailable CATES, ELDA Referring Unavailable CATES, ELDA Primary Care Unavailable CONTRERAS ARCE Admitting Unavailable CONTRERAS ARCE Attending Unavailable BIBI CHAVEZ Primary Care Unavailable ARLENE LEONE Admitting Unavailable ARLENE LEONE Attending Unavailable REQUEST, NONE LISTED Primary Care Unavaila ble DOMO HOWE Consulting Unavailable BIBI CHAVEZ Attending Unavailable SCOTT, BIBI Admitting Unavailable SCOTT, BIBI Primary Care Unavailable REQUEST, NONE LISTED Primary Care Unavaila ble KARASIK, DR CANTU Consulting Unavailable KARASIK, DR CANUT Attending Unavailable KARASIK, DR CANTU Admitting Unavailable REQUEST, DR NONE LISTED Primary Care Unavaila ble KARASIK, DR CANTU Consulting Unavailable KARASIK, DR CANTU Attending Unavailable KARASIK, DR CANTU Admitting Unavailable KARASIK, DR CANTU Attending Unavailable KARASIK, DR CANTU Admitting Unavailable REQUEST, NONE LISTED Primary Care Unavaila ble KARASIK, DR CANTU Consulting Unavailable ZIEBER, DR FRANCISCO Bell Consulting Unavailable SCOTT, BIBI Attending Unavailable BIBI CHAVEZ Admitting Unavailable BIBI CHAVEZ Consulting Unavailable REQUEST, NONE LISTED Primary Care Unavaila ble KARASIK, DR CANTU Attending Unavailable REQUEST, NONE LISTED Primary Care Unavaila ble KARASIK, DR CANTU Consulting Unavailable KARASIK, DR CANTU Admitting Unavailable BIBI CHAVEZ Attending Unavailable SCOTT, BIBI Admitting Unavailable SCOTT, BIBI Primary Care Unavailable SCOTT, BIBI Consulting Unavailable SCOTT, BIBI Attending Unavailable SCOTT, BIBI Admitting Unavailable SCOTT, BIBI Primary Care Unavailable SCOTT, BIBI Consulting Unavailable SCOTT, BIBI Consulting Unavailable SCOTT, BIBI Attending Unavailable SCOTT, BIBI Admitting Unavailable SCOTT, BIBI Primary Care Unavailable KEVIN, DR FRANCISCO Bell Consulting Unavailable REQUEST, DR DAN LISTED Primary Care Unavaila ble PAY, DR ECKERT Attending Unavailable PAY, DR ECKERT Admitting Unavailable PAY, DR ECKERT Consulting Unavailable Manny DAVIS Attending Unavailable SCOTT, BIBI S Referring Unavailable MD Moe Villagomez Attending Provider [phone] MIKE Chavez Bibi Ember Primary Care Provider Perry Alberto Unavailable LOWELL HAUSER Attending Unavailable WADE, ARSALAN R Referring Unavailable SCHLACHTER, LOWELL Primary Care Unavailable MIKE Chavez Bibi Ember Primary Care Provider BENJAMIN Alberto Attending Provider MD Barbie Toure Primary Care Provider MD Yumiko Herbert Attending Provider SCOTT, BIBI S Primary Care Unavailable WELLINGTON FLOWERS Attending Unavailable SCOTT, BIBI S Primary Care Unavailable MANNY MARTINS Attending Unavaila ble ROSITA MOSLEY Attending Unavailable ROSITA MOSLEY Referring Unavailable SCOTT, BIBI S Primary Care Unavailable WADE, ARSALAN R Primary Care Unavailable EN PARHAM Attending Unavailable WADE, ARSALAN R Primary Care Unavailable BARBIE BONE Attending Unavailable SMITHA, BARBIE Attending Unavailable BARBIE BONE Referring Unavailable WADE, ARSALAN R Primary Care Unavailable BARBIE TOURE Primary Care Unavailable SCHLACHTER, LOWELL Referring Unavailable SCHLACHTER, LOWELL Primary Care Unavailable SCHLACHTER, LOWELL Referring Unavailable SCHLACHTER, LOWELL Primary Care Unavailable SCHLACHTER, LOWELL Primary Care Unavailable LARRY RITTER Attending Unavailable PERRY ALBERTO Referring Unavailable SCHLACHTER, LOWELL Primary Care Unavailable SCHLACHTER, LOWELL Referring Unavailable SCHLACHTER, LOWELL Primary Care Unavailable LOWELL HAUSER Primary Care Unavailable LOWELL HAUSER Primary Care Unavailable RAFAEL CHENEY Attending Unavailable LOWELL HAUSER Primary Care Unavailable NICKY SAENZ Attending UnavailLOWELL Rodriguez Primary Care Unavailable BIBI CHAVEZ Primary Care Unavailable Bibi Chavez Primary Care Unavailable Perry Alberto Admitting Unavailable Perry Alberto Attending Unavailable Barbie Toure Primary Care Unavailable Asaad, Imad Admitting Unavailable Asaad, Imad Attending Unavailable Allergies Allergy Classification Reported Allergen(s) Allergy Type Date of Onset Reaction(s) Facility (2 sources) Latex Propensity to adverse reactions to drug 4 [place] (2 sources) Latex Drug allergy (disorder) 4 [facility] Repository (1 source) Nitrofurantoin Drug Allergy [facility] Repository (1 source) No Known Medication Allergies; Translations: [No Known Medication Allergies] Propensity to adverse reactions (disorder) [facility] Repository (2 sources) natural latex rubber; Translations: [LATEX, NATURAL RUBBER] Propensity to adverse reactions to drug (disorder) 7 [facility] Repository Medications Current Medications Medication Drug Class(es) [...] Classification Problem Date Documented Da te Episodic/Chronic Allergic reactions (1 source) Allergic contact dermatitis due to plants, except food; Translations: [Allergic contact dermatitis due to plants, except food] Onset: 10-04-2023 Episodic Genitourinary symptoms and ill-defined conditions (10 sources) Frequency of micturition; Translations: [Dysuria] Onset: 11-22-2020 Episodic Malaise and fatigue (4 sources) Other fatigue; Translations: [OTHER FATIGUE] Onset: 10-04-2021 Episodic Noninfectious gastroenteritis (2 sources) Noninfective gastroenteritis and colitis, unspecified; Translations: [Noninfective gastroenteritis and colitis, unspecified] Onset: 11-08-2021 Episodic Open wounds of extremities (1 source) Laceration without foreign body of left little finger without damage to nail, initial encounter; Translations: [Laceration without foreign body of left little finger without damage to nail, initial encounter] Onset: 09-22-2023 Episodic Other ear and sense organ disorders (1 source) Unspecified otitis externa, right ear; Translations: [Unspecified otitis externa, right ear] Onset: 07-18-2023 Chronic Other gastrointestinal disorders (1 source) Irritable bowel syndrome without diarrhea; Translations: [IRRITABLE BOWEL SYND W/O DIARRHEA] Onset: 10-05-2021 Chronic Other injuries and conditions due to external causes (1 source) Laceration - injury Onset: 09-22-2023 Episodic Other liver diseases (4 sources) Steatosis of liver; Translations: [Fatty (change of) liver, not elsewhere classified] 09-12-2023 Chronic Other liver diseases (8 sources) Fatty (change of) liver, not elsewhere classified; Translations: [Other chronic nonalcoholic liver disease] Onset: 09-19-2023 09-12-2023 Chronic Other liver diseases (4 sources) Elevated liver enzymes level; Translations: [Abnormal levels of other serum enzymes] 09-12-2023 Episodic Other liver diseases (8 sources) Abnormal levels of other serum enzymes; Translations: [Other nonspecific abnormal serum enzyme levels] Onset: 07-18-2023 09-12-2023 Episodic Other skin disorders (1 source) Rash and other nonspecific skin eruption; Translations: [Rash and other nonspecific skin eruption] Onset: 10-04-2023 Episodic Unclassified (1 source) THROMBOCYTOSIS UNSPECIFIED; Translations: [THROMBOCYTOSIS UNSPECIFIED] Onset: 10-05-2021 Unclassified (3 sources) COUGH, UNSPECIFIED; Translations: [COUGH, UNSPECIFIED] Onset: 02-08-2021 Unclassified (4 sources) CONTACT W/AND (SUSP) EXPOS COVID-19; Translations: [CONTACT W/AND (SUSP) EXPOS COVID-19] Onset: 02-08-2021 Unclassified (1 source) New Patient Onset: 07-10-2023 Unclassified (2 sources) Earache Onset: 06-27-2023 Unclassified (1 source) Rash Onset: 10-04-2023 Unclassified (1 source) Pus pocket in mouth Onset: 04-17-2023 Unclassified (1 source) Female Dysuria Onset: 04-01-2023 Urinary tract infections (1 source) Urinary tract infection, site not specified; Translations: [Urinary tract infection, site not specified] Onset: 07-10-2023 Episodic Past or Other Problems Problem Classification Problem Date Documented Da te Episodic/Chronic Abdominal pain (8 sources) Epigastric pain; Translations: [Pelvic and perineal [...] Translations: [OTHER ABNORMAL GLUCOSE] Onset: 07-14-2021 Episodic Disorders of teeth and jaw (2 sources) Periapical abscess without sinus; Translations: [Toothache] Onset: 04-17-2023 Episodic Immunizations and screening for infectious disease (1 source) Encounter for screening for human papillomavirus (HPV); Translations: [ENC SCREENING HUMAN PAPILLOMAVIRUS] Onset: 12-26-2020 Episodic Inflammatory diseases of female pelvic organs (1 source) Acute vaginitis; Translations: [Acute vaginitis] Onset: 04-20-2023 Episodic Nausea and vomiting (1 source) Nausea; Translations: [Nausea] Onset: 05-15-2023 Episodic Other female genital disorders (5 sources) Other specified noninflammatory disorders of vagina; Translations: [OTH SPEC NONINFLAMMATORY D/O VAGINA] Onset: 12-06-2020 Episodic Other gastrointestinal disorders (3 sources) Diarrhea, unspecified; Translations: [DIARRHEA UNSPECIFIED] Onset: 10-05-2021 Episodic Other non-traumatic joint disorders (1 source) Ankle pain Onset: 05-31-2023 Episodic Other screening for suspected conditions (not mental disorders or infectious disease) (4 sources) Encounter for screening for malignant neoplasm of cervix; Translations: [ENC SCREENING MALIG NEOPLASM CERV] Onset: 12-21-2020 Episodic Other upper respiratory disease (1 source) Nasal congestion Onset: 07-18-2023 Episodic Other upper respiratory infections (1 source) Acute pharyngitis, unspecified; Translations: [ACUTE PHARYNGITIS UNSPECIFIED] Onset: 03-20-2021 Episodic Otitis media and related conditions (2 sources) Acute serous otitis media, right ear; Translations: [Otitis media, unspecified, unspecified ear] Onset: 06-27-2023 Episodic Residual codes; unclassified (1 source) Acquired absence of both cervix and uterus; Translations: [ACQUIRED ABSENCE BOTH CERVIX AND UTERUS] Onset: 11-24-2020 Episodic Spondylosis; intervertebral disc disorders; other back problems (1 source) Acute back pain with sciatica; Translations: [Acute right-sided low back pain with right-sided sciatica] Episodic Sprains and strains (1 source) Sprain of other ligament of right ankle, initial encounter; Translations: [Sprain of other ligament of right ankle, initial encounter] Onset: 05-31-2023 Episodic Unclassified (1 source) CONTACT W/AND (SUSP) EXPOS COVID-19; Translations: [CONTACT W/AND (SUSP) EXPOS COVID-19] Onset: 03-17-2021 Unclassified (1 source) COUGH, UNSPECIFIED; Translations: [COUGH, UNSPECIFIED] Onset: 02-07-2021 Results Test Name Value Interpretation Reference Range Facility HCG ( test) Ql (U)o n 10-27-2023 Beta HCG ( test) Ql (U) Negative Normal NEG [facility] Comment on above: Performed By: #### C GS #### [facility] ([id number]) [address], [address] [place] [address] URINE CULTUREon 10-27-2023 Bacteria identified Cx Nom (U) CULTURE RESULTS 10-50,000 ORGANISMS/mL NORMAL UROGENITAL DAVID Normal [facility] Comment on above: Performed By: #### C GS #### [facility] ([id number]) [address], [address] [place] [address] URN MACROSCOPIC NURon 2023 BILIRUBIN JOSEPH Negative Normal [facility] Comment on above: Performed By: #### C GS #### [facility] ([id number]) [address], [address] [place] [address] BLOOD/HGB JOSEPH Negative Normal NEG [facility] Comment on above: Performed By: #### C GS #### [facility] ([id number]) [address], [address] [place] [address] GLUCOSE JOSEPH Negative Normal NEG [facility] Comment on above: Performed By: #### C GS #### [facility] ([id number]) [address], [address] [place] [address] KETONES JOSEPH Negative Normal NEG [facility] Comment on above: Performed By: #### C GS #### [facility] ([id number]) [address], [address] [place] [address] LEUKOCYTE ESTERASE JOSEPH Negative Normal NEG [facility] Comment on above: Performed By: #### C GS #### [facility] ([id number]) [address], [address] [place] [address] NITRITE JOSEPH Negative Normal NEG [facility] Comment on above: Performed By: #### C GS #### [facility] ([id number]) [address] [facility] [place] [address] PH JOSEPH 7.5 Normal 5.0-8.5 [facility] Comment on above: Performed By: #### C GS #### [facility] ([id number]) [address] [place] [address], [address] [place] [address] PROTEIN JOSEPH 30 mg/dL Abnormal NEG [facility] Comment on above: Performed By: #### C GS #### [facility] ([id number]) [address] [place] [address], [address] [place] [address] SPECIFIC GRAVITY JOSEPH 1.020 Normal 1.003-1.035 [facility] Comment on above: Performed By: #### C GS #### [facility] ([id number]) [address] [place] [address], [address] [place] [address] UROBILINOGEN JOSEPH 0.2 eu/dL Normal <1.1 [facility] Comment on above: Performed By: #### C GS #### [facility] ([id number]) [address] [place] [address], [address] [place] [address] VAGINITIS PANEL PCRon 2023 VAGINITIS PANEL PCR BACT. VAGINOSIS DNA Not detected (qualifier value) Qualitative results are reported based on detection and quantitation of targeted organism markers which include: Lactobacillus spp. (L. crispatus and L. jensenii), Gardnerella vaginalis, Atopobium vaginae, Bacterial Vaginosis Associated Bacteria-2 (BVAB-2) and Megasphaera-1 GRECIA SPECIES DNA Not detected (qualifier value) Grecia species not detected include: C. albicans, C. tropicalis, C. parapsilosis or C. dubliniensis GRECIA KRUSEI DNA Not detected (qualifier value) No Grecia krusei detected GRECIA GLABRATA DNA Detected (qualifier value) Grecia glabrata detected Literature studies show between 8-20% Fluconazole resistance for Grecia glabrata TRICHOMONAS VAG DNA Not detected (qualifier value) No Trichomonas vaginalis detected NOTE BD MAX Vaginal Panel has not been evaluated for patients under 18 years old. Results for these patients should be reviewed and assessed in accordance with clinical presentation to determine patient diagnosis. Normal [facility] Comment on above: Performed By: #### C GS #### [facility] ([id number]) [facility], [address] [place] [address] SRIKANTH with Reflexon 10-23-2023 SRIKANTH with Reflex Negative Normal Negative [facility] Comment on above: Result Comment: Perf ormed at: CB - [facility] [address] [id number] Automatic Spreader Operator: Louie Tan PhD, Phone: [phone] Performed By: #### E LF, HEMOCHROM, ALPHA PHEN, L-K MICRO, SRIKANTH CHOICE, IGG, SMAB, MITOM2 #### [facility] , Rnhst-9-Wtshdymgwth Phenotyp willem 10-23-2023 Alpha 1 Anti-Trypsin 138 mg/dL Normal 100-188 [facility] Comment on above: Performed By: #### E LF, HEMOCHROM, ALPHA PHEN, L-K MICRO, SRIKANTH CHOICE, IGG, SMAB, MITOM2 #### [facility] , Phenotype (P1) MM Normal . [facility] Comment on above: Result Comment: MM Phenotype is considered to be normal , producing normal serum levels of mwjfb-8-exupjmez inhibitor and not associated with clinical disease. Associated A1A total serum levels in other phenotypes and their incidence in the general population are shown in the table below. Phenotype Population % function A-1-AT Conc.* Incidence % compared to MM (Typical Range) MM 86.5% 100% (96 - 189) MS 8.0% 86% (83 - 161) MZ 3.9% 61% (60 - 111) FM 0.4% 100% (93 - 191) SZ 0.3% 41% (42 - 75) SS 0.1% 64% (62 - 119) ZZ 0.05% 19% (16 - 38) FS 0.05% 70% (70 - 128) FZ Unknown 46% (44 - 88) FF Unknown Unknown *A-1-AT concentration in the homozygous MM phenotype is taken as the reference normal. Percent deficiency in each phenotype is reported relative to this reference. Ranges used to confirm phenotype. Performed at: [address] [id number] Automatic Spreader Operator: Louie Tan PhD, Phone: [phone] Performed at: [address] [id number] Automatic Spreader Operator: Nela Mota MD, Phone: [phone] Performed By: #### E LF, HEMOCHROM, ALPHA PHEN, L-K MICRO, SRIKANTH CHOICE, IGG, SMAB, MITOM2 #### [facility] , Enhanced Liver Fibrosis Test on 10-23-2023 Enhanced Liver Fibrosis Score 8.16 Normal <9.80 [facility] Comment on above: Result Comment: ELF( TM) Score Interpretation: Risk cut-offs to assess the likelihood of progression to cirrhosis and liver-related clinical events within 3.9 years following baseline ELF score (IQR: 14.0-22.4 months)*: Lower risk < 9.80 Mid risk 9.80 - 11.29 Higher risk >11.29 Note: The ELF(TM) Score is a unitless numerical value. *Thomas SA, Harman RACHEL, Delfina T, et al. Selonsertib for patients with bridging fibrosis or compensated cirrhosis due to EPPS: Results from randomized phase III STELLAR trials. J Hepatol. 2020 Aug;73(1):26-39. Performed at: [address] [id number] Automatic Spreader Operator: Nela Mota MD, Phone: [phone] PERFORMED BY: [address] [place] [address] PATHOLOGIST MEMBERSHIP COUNSELOR JAILENE MATIAS M.D. Performed By: #### E LF, HEMOCHROM, ALPHA PHEN, L-K MICRO, SRIKANTH CHOICE, IGG, SMAB, MITOM2 #### [facility] , Hereditary Hemochromatosis,D NAon 10-23-2023 Hereditary Hemochromatosis Comment Normal . [facility] Comment on above: Result Comment: Resu lt: c.845G>A (p.Ykl000Yjk) - Not Detected c.187C>G (p.Mif28Kue) - Not Detected c.193A>T (p.Qsi53Vyo) - Not Detected Not associated with increased risk to develop clinical symptoms of Hereditary Hemochromatosis. In symptomatic individuals, other causes of iron overload should be evaluated. See Additional Information and Comments. Additional Clinical Information: Hereditary hemochromatosis (HFE related) is an autosomal recessive iron storage disorder. Patients may have a genetic diagnosis of hereditary hemochromatosis and never show clinical symptoms. Clinical symptoms typically appear between 40 to 60 years in males and after menopause in females. Signs and symptoms may include organ damage, primarily in the liver, risk for hepatocellular carcinoma, diabetes, and heart disease due to iron accumulation. Life expectancy may be decreased in individuals who develop cirrhosis. Treatment for clinically symptomatic individuals may include therapeutic phlebotomy. Liver transplant may be used to treat end stage liver failure. For preventive care, monitoring for iron overload is recommended for patients who are homozygous for c.845G>A (p.Akn988Lrj) and have yet to experience clinical symptoms. Comments: The most common HFE variants associated with hereditary hemochromatosis are c.845G>A (p.Qsq844Jxb), c.187C>G (p.Ier40Rng), c.193A>T (p.Zwy19Wve). While patients homozygous for c.845G>A (p.Vol072Vwo) are the most likely to present clinical symptoms, less than 10% develop clinically significant iron overload with tissue and organ damage. Genetic counseling is recommended to discuss the potential clinical implications of positive results, as well as recommendations for testing family members. Genetic Coordinators are available for health care providers to discuss results at [phone]). Test Details: Three variants analyzed: c.845G>A (p.Ear930Wgu), commonly referred to as C282Y c.187C>G (p.Myb14Zhz), commonly referred to as H63D c.193A>T (p.Ljq70Aaz), commonly referred to as S65C Methods/Limitations: DNA Analysis of the HFE gene (NM_[id number]) was performed by PCR amplification followed by restriction enzyme digestion analyses. Results must be combined with clinical information for the most accurate interpretation. Molecular- based testing is highly accurate, but as in any laboratory test, diagnostic errors may occur. False positive or false negative results may occur for reasons that include genetic variants, blood transfusions, bone marrow transplantation, somatic or tissue-specific mosaicism, mislabeled samples, or erroneous representation of family relationships. This test was developed and its performance characteristics determined by [facility]. It has not been cleared or approved by the Food and Drug Administration. References: Lee BR, Thiago PC, Sugar KV, Magdi LW, Amanda ; [place] [employer] Liver [employer]. Diagnosis and management of hemochromatosis: 2011 practice guideline by the [place] [employer] Liver Diseases. Hepatology. 2011 Aug;54(1):328-43. doi: 10.1002/hep.79415. PMID: 17557986; PMCID: [id number]. Tanika G, Alvaro P, Yoanna DW, Tabby H, Abel O, Kavon S, Abisai I, Brien M, Kwesi S. [facility] best practice guidelines for the molecular genetic diagnosis of hereditary hemochromatosis (HH). Eur J Hum [place]enzie. 2016 May;24(4):479-95. doi: 10.1038/ejhg.2015.128. Epub 2014Aug 26. PMID: 66849478; PMCID: VFG5478189. Performed By: #### E LF, HEMOCHROM, ALPHA PHEN, L-K MICRO, SRIKANTH CHOICE, IGG, SMAB, MITOM2 #### [facility] , Reviewed by: Comment Normal . The [facility] Comment on above: Result Comment: Tech nical Component performed at [facility] Professional Component performed by: [employer] Abdifatah Marshall, Ph.D., [facility] Director, [facility] [address] Performed at: - [facility] [address] [place], [place] [id number] Automatic Spreader Operator: Miah Cotto [facility], Phone: [phone] Performed By: #### E LF, HEMOCHROM, ALPHA PHEN, L-K MICRO, SRIKANTH CHOICE, IGG, SMAB, MITOM2 #### [facility] , Immunoglobulin Landen Immunoglobulin G 989 mg/dL Normal 586-1602 [facility] Comment on above: Result Comment: Perf ormed at: [address] [id number] Automatic Spreader Operator: Louie Tan PhD, Phone: [phone] Performed By: #### E LF, HEMOCHROM, ALPHA PHEN, L-K MICRO, SRIKANTH CHOICE, IGG, SMAB, MITOM2 #### [facility] , Liver-Kidney Microsomal Abon 10-23-2023 Liver-Kidney Microsomal Ab 1.9 Normal 0.0-20.0 [facility] Comment on above: Result Comment: Nega tive 0.0 - 20.0 Equivocal 20.1 - 24.9 Positive >24.9 LKM type 1 antibodies are detected in patients with autoimmune hepatitis type 2 and in up to 8% of patients with chronic HCV infection. Performed at: [address] [id number] Automatic Spreader Operator: Louie Tan PhD, Phone: [phone] Performed By: #### E LF, HEMOCHROM, ALPHA PHEN, L-K MICRO, SRIKANTH CHOICE, IGG, SMAB, MITOM2 #### [facility] , Mitochondrial (M2) Antibodyo n 10-23-2023 Mitochondrial (M2) Antibody <20.0 Normal 0.0-20.0 [facility] Comment on above: Result Comment: Nega tive 0.0 - 20.0 Equivocal 20.1 - 24.9 Positive >24.9 Mitochondrial (M2) Antibodies are found in 90-96% of patients with primary biliary cirrhosis. Performed By: #### E LF, HEMOCHROM, ALPHA PHEN, L-K MICRO, SRIKANTH CHOICE, IGG, SMAB, MITOM2 #### [facility] , Smooth Muscle Antibodyon Smooth Muscle Antibody 6 Normal 0-19 [facility] Comment on above: Result Comment: Nega tive 0 - 19 Weak positive 20 - 30 Moderate to strong positive >30 Actin Antibodies are found in 52-85% of patients with autoimmune hepatitis or chronic active hepatitis and in 22% of patients with primary biliary cirrhosis. Performed By: #### E LF, HEMOCHROM, ALPHA PHEN, L-K MICRO, SRIKANTH CHOICE, IGG, SMAB, MITOM2 #### [facility] , Alpha 1 antitrypsin Nephelom etry [Mass/Vol]on 09-19-2023 ALPHA 1 ANTITRYPSIN 147 mg/dL Normal 83-199 [facility] Comment on above: Performed By: #### V PPCR #### [facility] ([id number]) [address] [place] [address], [address] [place] [address] Alpha 1 antitrypsin phenotyp ing [Interp]on 09-19-2023 Phbbd-2-Flgejcasdez Phenotype MM Normal [facility] Comment on above: Result Comment: NOTE A single M isoform is detected. In the context of a normal ojdof-4-rlmwtzjlmfo concentration, this is consistent with an MM phenotype. ADDITIONAL INFORMATION Method: Isoelectric Focusing, This assay identifies the phenotype of the circulating ooupc-5-xxvvkyjwpju (A1A) protein. If the patient is on replacement therapy or has been recently transfused, the phenotype will detect patient and replacement or transfused plasma A1A protein. This test also cannot detect a null allele which could be responsible for an A1A deficiency. Performed By: #### C GS #### [facility] ([id number]) [address] [place] [address], [address] [place] [address] Fgmar-4-Dzqqxosjeup, S 143 mg/dL Normal 100 - 190 [facility] Comment on above: Result Comment: NOTE ADDITIONAL INFORMATION Method: Nephelometry Test Performed by: [facility] [address] [place] [address] Automatic Spreader Operator: Maria Del Carmen Zamora Ph.D.; CLIA# [id number] Performed By: #### C GS #### [facility] ([id number]) [address], [address] [place] [address] CBC AND AUTO DIFFon 09-19-19 24 ABSOLUTE BASOPHIL 0.0 X10E9/L Normal 0.0-0.2 [facility] Comment on above: Performed By: #### V PPCR #### [facility] ([id number]) [address], [address] [place] [address] ABSOLUTE NEUTROPHIL 4.7 X10E9/L Normal 1.5-6.6 [facility] Comment on above: Performed By: #### V PPCR #### [facility] ([id number]) [address], [address] [place] [address] Basophils/100 WBC (Bld) 0.6 % Normal [facility] Comment on above: Performed By: #### V PPCR #### [facility] ([id number]) [address], [address] [place] [address] Eosinophils (Bld) [#/Vol] 0.1 10*3/uL Normal 0.0-0.4 [facility] Comment on above: Performed By: #### V PPCR #### [facility] ([id number]) [address], [address] [place] [address] Eosinophils/100 WBC (Bld) 1.6 % Normal [facility] Comment on above: Performed By: #### V PPCR #### [facility] ([id number]) [address], [address] [place] [address] Erythrocyte distribution width (RBC) [Ratio] 13.7 % Normal 11.5-15.0 [facility] Comment on above: Performed By: #### V PPCR #### [facility] ([id number]) [address], [address] [place] [address] Hematocrit (Bld) [Volume fraction] 39.8 % Normal 35-47 [facility] Comment on above: Performed By: #### V PPCR #### [facility] ([id number]) [address], [address] [place] [address] Hemoglobin (Bld) [Mass/Vol] 13.0 g/dL Normal 11.7-15.5 [facility] Comment on above: Performed By: #### V PPCR #### [facility] ([id number]) [address] [address] [place] [address] Lymphocytes (Bld) [#/Vol] 2.7 10*3/uL Normal 1.0-3.5 [facility] Comment on above: Performed By: #### V PPCR #### [facility] ([id number]) [address] [address] [place] [address] Lymphocytes/100 WBC (Bld) 33.3 % Normal [facility] Comment on above: Performed By: #### V PPCR #### [facility] ([id number]) [address] [address] [place] [address] MCH (RBC) [Entitic mass] 27.6 pg Normal 27-34 [facility] Comment on above: Performed By: #### V PPCR #### [facility] ([id number]) [address] [address] [place] [address] MCHC (RBC) [Mass/Vol] 32.5 g/dL Normal 32-36 [facility] Comment on above: Performed By: #### V PPCR #### [facility] ([id number]) [address] [address] [place] [address] MCV (RBC) [Entitic vol] 85 fL Normal 80-100 [facility] Comment on above: Performed By: #### V PPCR #### [facility] ([id number]) [address], [address] [place] [address] Monocytes (Bld) [#/Vol] 0.5 10*3/uL Normal 0-0.9 [facility] Comment on above: Performed By: #### V PPCR #### [facility] ([id number]) [address], [address] [place] [address] Monocytes/100 WBC (Bld) 6.2 % Normal [facility] Comment on above: Performed By: #### V PPCR #### [facility] ([id number]) [address], [address] [place] [address] Neutrophils/100 WBC (Bld) 58.3 % Normal [facility] Comment on above: Performed By: #### V PPCR #### [facility] ([id number]) [address], [address] [place] [address] Platelet mean volume (Bld) [Entitic vol] 8.2 fL Normal 7-12 [facility] Comment on above: Performed By: #### V PPCR #### [facility] ([id number]) [address], [address] [place] [address] Platelets (Bld) [#/Vol] 355 10*3/uL Normal 150-450 [facility] Comment on above: Performed By: #### V PPCR #### [facility] ([id number]) [address], [address] [place] [address] RBC COUNT 4.70 X10E12/L Normal 3.80-5.20 [facility] Comment on above: Performed By: #### V PPCR #### [facility] ([id number]) [address] [address] [place] [address] WBC (Bld) [#/Vol] 8.1 10*3/uL Normal 4.0-11.0 [facility] Comment on above: Performed By: #### V PPCR #### [facility] ([id number]) [address], [address] [place] [address] Ceruloplasmin [Mass/Vol]on 0 09-19-2023 CERULOPLASMIN 23 mg/dL Normal 18-58 [facility] Comment on above: Performed By: #### 6 30-4 #### [facility] ([id number]) [address], [address] [place] [address] FERRITINon 09-19-2023 Ferritin [Mass/Vol] 55 ng/mL Normal 11-307 [facility] Comment on above: Performed By: #### 6 30-4 #### [facility] ([id number]) [address], [address] [place] [address] HBV core Ab IA Qlon 09-19-19 ANTI HBc Negative Normal NEG [facility] Comment on above: Performed By: #### 6 30-4 #### [facility] ([id number]) [address], [address] [place] [address] HBV surface Ab IA Qnon 09-18 Anti HBs quant. <8.00 Normal [facility] Comment on above: Result Comment: Vacc inated: >=12mIU/mL, Positive (Immune) Unvaccinated: <8mIU/mL, Negative (Not Immune) 8-11.99 mIU/mL: Indeterminate, (Considered Not Immune) Performed By: #### 6 30-4 #### [facility] ([id number]) [address], [address] [place] [address] HBV surface Ag IA Qlon 09-18 HEPATITIS B SURF AG Negative Normal NEG [facility] Comment on above: Performed By: #### 6 30-4 #### [facility] ([id number]) [address], [address] [place] [address] HCV Ab IA Qlon 09-19-2023 ANTI HCV W/PCR REFLX Non-Reactive Normal NRCT Pr [facility] Comment on above: Result Comment: If recent infection suspected, recommend repeat testing (>2 months). Ghcnsq-cs-emopwi ratio is <0.80. Performed By: #### 6 30-4 #### [facility] ([id number]) [address], [address] [place] [address] IRON PROFILEon 09-19-2023 Iron [Mass/Vol] 37 ug/dL Low 50-170 [facility] Comment on above: Performed By: #### 6 30-4 #### [facility] ([id number]) [address], [address] [place] [address] IRON BINDING 400 ug/dL Normal 250-425 [facility] Comment on above: Performed By: #### 6 30-4 #### [facility] ([id number]) [address], [address] [place] [address] IRON SATURATION 9 % SATURATION Low 15-50 [facility] Comment on above: Performed By: #### 6 30-4 #### [facility] ([id number]) [address] [facility], [address] [place] [address] Lipid 1996 panelon Cholesterol [Mass/Vol] 163 mg/dL Normal 150-200 [facility] Comment on above: Performed By: #### 6 30-4 #### [facility] ([id number]) [address], [address] [place] [address] Cholesterol in HDL [Mass/Vol] 27 mg/dL Low >39 [facility] Comment on above: Result Comment: HDL <40 mg/dL - High Risk HDL > or = 40mg/dL- Desirable HDL >60 mg/dL - Negative Risk Performed By: #### 6 30-4 #### [facility] ([id number]) [address], [facility] [address] [place] [address] Cholesterol in LDL [Mass/Vol] 97 mg/dL Normal <130 [facility] Comment on above: Result Comment: LDL <100 mg/dL - Desirable LDL >160 mg/dL - High Risk Performed By: #### 6 30-4 #### [facility] ([id number]) [address] [facility] [address] [place] [address] Cholesterol in VLDL [Mass/Vol] 39 mg/dL High 0-30 [facility] Comment on above: Performed By: #### 6 30-4 #### [facility] ([id number]) [address] [place] [address] [address] [place] [address] CHOLESTEROL:HDL 6.0 High 1.0-5.0 [facility] Comment on above: Performed By: #### 6 30-4 #### [facility] ([id number]) [address] [place] [address] Triglyceride [Mass/Vol] 197 mg/dL High 27-150 [facility] Comment on above: Performed By: #### 6 30-4 #### [facility] ([id number]) [address] [address] [place] [address] Nuclear Ab IA Ql (S)on 09-18 SRIKANTH Screen w/reflex Negative Normal NEG [facility] Comment on above: Result Comment: Testing performed using multiplex flow immunoassay. Eleven different antigens associated with systemic autoimmune diseases (dsDNA,Sm,Sm/TENONER OPERATOR,TENONER OPERATOR,Chromatin, SSA,SSB,Jacqueline-1,Scl70,Ribo P,Centromere B) are included in this screening test. Performed By: #### 6 30-4 #### [facility] ([id number]) [address] [address] [place] [address] PROTIME AND INRon 09-19-2023 INR Coag (PPP) [Relative time] 1.0 {INR} Normal 0.8-1.1 [facility] Comment on above: Performed By: #### 6 30-4 #### [facility] ([id number]) [address], [address] [place] [address] PT Coag (PPP) [Time] 11.3 s Normal 9.8-13.2 [facility] Comment on above: Performed By: #### 6 30-4 #### [facility] ([id number]) [address], [address] [place] [address] Smooth muscle Ab IF Ql (S)on 09-19-2023 Smooth Muscle Ab Negative Normal Negative [facility] Comment on above: Result Comment: NOTE Negative: No further testing will be performed ADDITIONAL INFORMATION This test was developed and its performance characteristics determined by [facility] in a manner consistent with CLIA requirements. This test has not been cleared or approved by the U.S. Food and Drug Administration. Test Performed by: [place] [address] Automatic Spreader Operator: Maria Del Carmen Zamora Ph.D.; CLIA# [id number] Performed By: #### C GS #### [facility] ([id number]) [address], [address] [place] [address] US ABDOMEN LMTDon 09-19-2023 US ABDOMEN LMTD US ABDOMEN LMTD US ABDOMEN LMTD HISTORY: Elevated liver enzymes, steatosis of the liver COMPARISON: Ultrasound 07/18/2023, CT 04/20/2023 TECHNIQUE: Multiple real-time grayscale images were obtained in transverse and sagittal projections. Color Doppler was used. FINDINGS: Diffusely increased hepatic echogenicity compatible with hepatocellular disease. Although nonspecific, this is most likely secondary to steatosis. Within these limits, no focal hepatic lesion demonstrated. No intrahepatic biliary dilatation. The common duct is not dilated and measures 0.2 cm. Main portal vein is patent with appropriate direction of flow. No gallstones, gallbladder wall thickening, or pericholecystic fluid demonstrated. Technologist reports negative sonographic Cerrato's sign. The gallbladder wall measures 0.1 cm. Visualized portions of the pancreatic head and body are unremarkable. Provided images of the right kidney show no abnormalities. IMPRESSION: Although nonspecific, diffusely increased hepatic echogenicity is most likely secondary to hepatic steatosis. Approved by Resident Yuni Chaidez DO on 09/19/2023 3:07 PM Yoav Babcock MD have personally reviewed the image(s) and agree with and/or edited the report Finalized by Yoav Johnson MD on 09/19/2023 3:20 PM Normal [facility] US ABDOMEN LMTDon 07-19-2023 US ABDOMEN LMTD US ABDOMEN LMTD HISTORY: A 37-year-old female with the history of the elevated liver enzymes. TECHNIQUE: Multiple real-time images of the right upper abdomen are obtained. The color Doppler study is performed. COMPARISON: Comparison is made with the CT scan of the abdomen and pelvis of 04/20/2023. FINDINGS: Examination is compromised due to patient's body habitus. The visualized liver is normal in morphology. There is increase echogenicity in the liver consistent with fatty infiltration. No focal mass is identified. The gallbladder is normal in size, configuration and thickness. The gallbladder wall thickness measures 1.9 mm. There is no evidence of echogenic foci or acoustic shadowing to suggest cholelithiasis. The common bile duct is normal and measures 2.1 mm in diameter. No intrahepatic biliary ductal dilatation is identified. There is a negative sonographic Cerrato's sign. The visualized pancreas appears normal. Spleen appears normal. Spleen measures 10.9 cm in length. There is no evidence of free fluid in the upper abdomen. The color Doppler study reveals normal hepatopedal flow in the main portal vein. IMPRESSION: 1. No evidence of cholelithiasis or biliary ductal dilatation. There is a negative sonographic Cerrato's sign. 2. The visualized liver is unremarkable. 3. Pancreas and spleen are unremarkable. 4. There is a normal directional flow in main portal vein. Finalized by Fer Diamond MD on 07/19/2023 9:08 AM Normal [facility] C DIFFICILE BY PCRon 024 C. difficile toxin genes NANCY+probe Ql (Stl) TOXIGENIC C DIFF Negative (qualifier value) 027 NAP1 Negative (qualifier value) Normal PRNEG [facility] Comment on above: Performed By: #### V PPCR #### [facility] ([id number]) [address], [address] [place] [address] CBC AND AUTO DIFFon 07-11-19 24 ABSOLUTE BASOPHIL 0.1 X10E9/L Normal 0.0-0.2 [facility] Comment on above: Performed By: #### V PPCR #### [facility] ([id number]) [address], [address] [place] [address] ABSOLUTE NEUTROPHIL 6.0 X10E9/L Normal 1.5-6.6 [facility] Comment on above: Performed By: #### V PPCR #### [facility] ([id number]) [address], [address] [place] [address] Basophils/100 WBC (Bld) 0.7 % Normal [facility] Comment on above: Performed By: #### V PPCR #### [facility] ([id number]) [address], [address] [place] [address] Eosinophils (Bld) [#/Vol] 0.2 10*3/uL Normal 0.0-0.4 [facility] Comment on above: Performed By: #### V PPCR #### [facility] ([id number]) [address], [address] [place] [address] Eosinophils/100 WBC (Bld) 1.5 % Normal [facility] Comment on above: Performed By: #### V PPCR #### [facility] ([id number]) [address], [address] [place] [address] Erythrocyte distribution width (RBC) [Ratio] 13.8 % Normal 11.5-15.0 [facility] Comment on above: Performed By: #### V PPCR #### [facility] ([id number]) [address], [address] [place] [address] Hematocrit (Bld) [Volume fraction] 40.9 % Normal 35-47 [facility] Comment on above: Performed By: #### V PPCR #### [facility] ([id number]) [address] [facility] [address] [place] [address] Hemoglobin (Bld) [Mass/Vol] 13.3 g/dL Normal 11.7-15.5 [facility] Comment on above: Performed By: #### V PPCR #### [facility] ([id number]) [address], [address] [place] [address] Lymphocytes (Bld) [#/Vol] 3.1 10*3/uL Normal 1.0-3.5 [facility] Comment on above: Performed By: #### V PPCR #### [facility] ([id number]) [address], [address] [place] [address] Lymphocytes/100 WBC (Bld) 30.8 % Normal [facility] Comment on above: Performed By: #### V PPCR #### [facility] ([id number]) [address], [address] [place] [address] MCH (RBC) [Entitic mass] 27.8 pg Normal 27-34 [facility] Comment on above: Performed By: #### V PPCR #### [facility] ([id number]) [address], [address] [place] [address] MCHC (RBC) [Mass/Vol] 32.6 g/dL Normal 32-36 [facility] Comment on above: Performed By: #### V PPCR #### [facility] ([id number]) [address], [address] [place] [address] MCV (RBC) [Entitic vol] 85 fL Normal 80-100 [facility] Comment on above: Performed By: #### V PPCR #### [facility] ([id number]) [address], [address] [place] [address] Monocytes (Bld) [#/Vol] 0.7 10*3/uL Normal 0-0.9 [facility] Comment on above: Performed By: #### V PPCR #### [facility] ([id number]) [address], [address] [place] [address] Monocytes/100 WBC (Bld) 6.6 % Normal [facility] Comment on above: Performed By: #### V PPCR #### [facility] ([id number]) [address], [address] [place] [address] Neutrophils/100 WBC (Bld) 60.4 % Normal [facility] Comment on above: Performed By: #### V PPCR #### [facility] ([id number]) [address], [address] [place] [address] Platelet mean volume (Bld) [Entitic vol] 8.1 fL Normal 7-12 [facility] Comment on above: Performed By: #### V PPCR #### [facility] ([id number]) [address], [address] [place] [address] Platelets (Bld) [#/Vol] 366 10*3/uL Normal 150-450 [facility] Comment on above: Performed By: #### V PPCR #### [facility] ([id number]) [address], [address] [place] [address] RBC COUNT 4.80 X10E12/L Normal 3.80-5.20 [facility] Comment on above: Performed By: #### V PPCR #### [facility] ([id number]) [address], [address] [place] [address] WBC (Bld) [#/Vol] 9.9 10*3/uL Normal 4.0-11.0 [facility] Comment on above: Performed By: #### V PPCR #### [facility] ([id number]) [address], [address] [place] [address] COMPREHENSIVE METABOLIC PANE Sameer 07-11-2023 Albumin [Mass/Vol] 3.9 g/dL Normal 3.2-5.3 [facility] Comment on above: Performed By: #### V PPCR #### [facility] ([id number]) [address], [address] [place] [address] ALP [Catalytic activity/Vol] 71 U/L Normal 39-130 [facility] Comment on above: Performed By: #### V PPCR #### [facility] ([id number]) [address], [address] [place] [address] ALT [Catalytic activity/Vol] 42 U/L High 0-31 [facility] Comment on above: Performed By: #### V PPCR #### [facility] ([id number]) [address], [address] [place] [address] Anion gap [Moles/Vol] 5 mmol/L Normal 5-15 [facility] Comment on above: Performed By: #### V PPCR #### [facility] ([id number]) [address], [address] [place] [address] AST [Catalytic activity/Vol] 34 U/L Normal 0-41 [facility] Comment on above: Performed By: #### V PPCR #### [facility] ([id number]) [address], [address] [place] [address] Bilirubin [Mass/Vol] 0.7 mg/dL Normal 0.3-1.2 [facility] Comment on above: Performed By: #### V PPCR #### [facility] ([id number]) [address], [address] [place] [address] Calcium [Mass/Vol] 8.7 mg/dL Normal 8.5-10.5 [facility] Comment on above: Performed By: #### V PPCR #### [facility] ([id number]) [address], [address] [place] [address] Chloride [Moles/Vol] 104 mmol/L Normal 98-109 [facility] Comment on above: Performed By: #### V PPCR #### [facility] ([id number]) [address] [place] [address] CO2 [Moles/Vol] 30 mmol/L Normal 22-32 [facility] Comment on above: Performed By: #### V PPCR #### [facility] ([id number]) [address], [address] [place] [address] Creatinine [Mass/Vol] 0.45 mg/dL Normal 0.40-1.00 [facility] Comment on above: Result Comment: METH OD TRACEABLE TO IDMS STANDARD Performed By: #### V PPCR #### [facility] ([id number]) [address], [address] [place] [address] eGFR (CKD-EPI) NON-RACE DEPENDENT >90 Normal >59 [facility] Comment on above: Result Comment: Reported eGFR is based on the CKD-EPI 2020 equation that does not use a race coefficient. Performed By: #### V PPCR #### [facility] ([id number]) [address], [address] [place] [address] Glucose [Mass/Vol] 94 mg/dL Normal 65-99 [facility] Comment on above: Performed By: #### V PPCR #### [facility] ([id number]) [address] [place] [address] Potassium [Moles/Vol] 4.1 mmol/L Normal 3.5-5.0 [facility] Comment on above: Performed By: #### V PPCR #### [facility] ([id number]) [address], [address] [place] [address] Protein [Mass/Vol] 6.4 g/dL Normal 6.0-8.0 [facility] Comment on above: Performed By: #### V PPCR #### [facility] ([id number]) [address] [place] [address] Sodium [Moles/Vol] 139 mmol/L Normal 134-146 [facility] Comment on above: Performed By: #### V PPCR #### [facility] ([id number]) [address] [place] [address] Urea nitrogen [Mass/Vol] 7 mg/dL Normal 5-23 [facility] Comment on above: Performed By: #### V PPCR #### [facility] ([id number]) [address] [place] [address] ESR Photometric method (Bld) [Velocity]on 07-11-2023 ESR, ERYTHROCYTE SEDIMENTATION RATE 5 mm/h Normal 0-20 [facility] Comment on above: Performed By: #### V PPCR #### [facility] ([id number]) [address] [place] [address] XR ANKLE RT MIN 3 VWSon 04- XR ANKLE RT MIN 3 VWS XR ANKLE RT MIN 3 VWS HISTORY: Pain, injury COMPARISON: None FINDINGS: Multiple views right ankle were obtained. Lateral soft tissue swelling. Osseous structures are intact with normal alignment. Calcaneal spurs. IMPRESSION: * No acute osseous abnormality. Finalized by Micky Gutierrez MD on 05/31/2023 4:03 AM Normal [facility] C DIFFICILE BY PCRon 024 C. difficile toxin genes NANCY+probe Ql (Stl) TOXIGENIC C DIFF Positive (qualifier value) 027 NAP1 Negative (qualifier value) Normal PRNEG [facility] Comment on above: Performed By: #### V PPCR #### [facility] ([id number]) [address] [facility] [address], [address] [place] [address] GI PANELon 05-15-2023 Gastrointestinal pathogens DNA and RNA panel NANCY+non-probe (Stl) SPECIMEN SOURCE STOOL CAMPYLOBACTER Not detected (qualifier value) PLESIOMONAS Not detected (qualifier value) SALMONELLA Not detected (qualifier value) VIBRIO Not detected (qualifier value) VIBRIO CHOLERAE Not detected (qualifier value) Y. ENTEROCOLITICA Not detected (qualifier value) AGGREGATIVE E COLI Not detected (qualifier value) PATHOGENIC E COLI Not detected (qualifier value) TOXIGENIC E COLI Not detected (qualifier value) SHIGA TOXIN E COLI Not detected (qualifier value) SHIGELLA-E COLI Not detected (qualifier value) CRYPTOSPORIDIUM Not detected (qualifier value) CYCLOSPORA Not detected (qualifier value) E HISTOLYTICA Not detected (qualifier value) GIARDIA LAMBLIA Not detected (qualifier value) ADENOVIRUS Not detected (qualifier value) ASTROVIRUS Not detected (qualifier value) NOROVIRUS Not detected (qualifier value) ROTAVIRUS A Not detected (qualifier value) SAPOVIRUS Not detected (qualifier value) Normal NDET [facility] Comment on above: Performed By: #### V PPCR #### [facility] ([id number]) [facility], [address] [place] [address] HCG ( test) Ql (U)o n 05-15-2023 Beta HCG ( test) Ql (U) Negative Normal NEG [facility] Comment on above: Performed By: #### 2 106-3 #### [facility] ([id number]) [address] [facility], [place] [address] URN MACROSCOPIC NURon 2023 BILIRUBIN JOSEPH Negative Normal NEG [facility] Comment on above: Performed By: #### 2 106-3 #### [facility] ([id number]) [address] [place] [address] [place] [address] BLOOD/HGB JOSEPH Negative Normal NEG [facility] Comment on above: Performed By: #### 2 106-3 #### [facility] ([id number]) [address] [place] [address] [place] [address] GLUCOSE JOSEPH Negative Normal NEG [facility] Comment on above: Performed By: #### 2 106-3 #### [facility] ([id number]) [address] [place] [address] [place] [address] KETONES JOSEPH Negative Normal NEG [facility] Comment on above: Performed By: #### 2 106-3 #### [facility] ([id number]) [address] [place] [address] [place] [address] LEUKOCYTE ESTERASE JOSEPH Negative Normal NEG [facility] Comment on above: Performed By: #### 2 106-3 #### [facility] ([id number]) [address] [place] [address] [place] [address] NITRITE JOSEPH Negative Normal NEG [facility] Comment on above: Performed By: #### 2 106-3 #### [facility] ([id number]) [address] [place] [address] [place] [address] PH JOSEPH 6.5 Normal 5.0-8.5 [facility] Comment on above: Performed By: #### 2 106-3 #### [facility] ([id number]) [address] [place] [address] PROTEIN JOSEPH Negative Normal NEG [facility] Comment on above: Performed By: #### 2 106-3 #### [facility] ([id number]) [address] [place] [address], [place] [address] SPECIFIC GRAVITY JOSEPH >=1.030 Normal 1.003-1.035 [facility] Comment on above: Performed By: #### 2 106-3 #### [facility] ([id number]) [address] [place] [address] UROBILINOGEN JOSEPH 0.2 eu/dL Normal <1.1 [facility] Comment on above: Performed By: #### 2 106-3 #### [facility] ([id number]) [address] [place] [address] CHLAMYDIA/GC BY PCRon 2023 CHLAMYDIA/GC BY PCR SPECIMEN SOURCE VAGINAL SWAB Corrected on 04/20 AT 1120: Previously reported as SWAB CHLAMYDIA DNA(PCR) Negative (qualifier value) Chlamydia trachomatis not detected by nucleic acid amplification. This does not exclude the possibility of infection because results are dependent on adequate specimen collection. GONORRHOEAE DNA(PCR) Negative (qualifier value) Neisseria gonorrhoeae not detected by nucleic acid amplification. This does not exclude the possibility of infection because results are dependent on adequate specimen collection. Normal [facility] Comment on above: Performed By: #### 2 106-3 #### [facility] ([id number]) [address] [place] [address] ABDOMEN AND PELVIS W CONT on 04-21-2023 CT ABDOMEN AND PELVIS W CONT CT ABDOMEN AND PELVIS W CONT CLINICAL INFORMATION: LLQ abdominal pain. TECHNIQUE: Multidetector CT scan of the abdomen and pelvis was performed following the uneventful administration of nonionic intravenous contrast. 100 mL of Omnipaque 300 was injected intravenously. Coronal and sagittal reformatted images were obtained and reviewed. Automated exposure control was utilized. All CT scans at this facility use dose modulation, iterative reconstruction, and/or weight based dosing when appropriate to reduce radiation dose to as low as reasonably achievable. COMPARISON: 03/28/2021 FINDINGS: Lower chest: No focal consolidation or pleural effusion is seen in the visualized lower chest. Hepatobiliary: No focally enhancing lesions are seen in the liver, spleen, or pancreas. Hepatomegaly. The gallbladder is present. Genitourinary: The adrenal glands and kidneys are unremarkable. The uterus is absent. Retroperitoneum and vascular: The abdominal aorta is nonaneurysmal. The IVC is right-sided. No portal venous thrombosis. Bowel and mesentery: The bowel is nondistended. Unremarkable terminal ileum. No significant free fluid or free air. Soft tissues and bones: No acute osseous abnormality or destructive osseous lesions. IMPRESSION: * No acute abdominal or pelvic abnormality is seen. Approved by Resident Naomy Jeter MD on 04/21/2023 12:37 AM I, Micky Gutierrez MD have personally reviewed the image(s) and agree with and/or edited the report Finalized by Micky Gutierrez MD on 04/21/2023 12:56 AM Normal [facility] VAGINITIS PANEL PCRon 2023 VAGINITIS PANEL PCR BACT. VAGINOSIS DNA Not detected (qualifier value) Qualitative results are reported based on detection and quantitation of targeted organism markers which include: Lactobacillus spp. (L. crispatus and L. jensenii), Gardnerella vaginalis, Atopobium vaginae, Bacterial Vaginosis Associated Bacteria-2 (BVAB-2) and Megasphaera-1 GRECIA SPECIES DNA Not detected (qualifier value) Grecia species not detected include: C. albicans, C. tropicalis, C. parapsilosis or C. dubliniensis GRECIA KRUSEI DNA Not detected (qualifier value) No Grecia krusei detected GRECIA GLABRATA DNA Not detected (qualifier value) No Grecia glabrata detected TRICHOMONAS VAG DNA Not detected (qualifier value) No Trichomonas vaginalis detected NOTE BD MAX Vaginal Panel has not been evaluated for patients under 18 years old. Results for these patients should be reviewed and assessed in accordance with clinical presentation to determine patient diagnosis. Normal [facility] Comment on above: Performed By: #### 2 106-3 #### [facility] ([id number]) [address] [place] [address] [place] [address] CBC AND AUTO DIFFon 04-20-19 24 ABSOLUTE BASOPHIL 0.0 X10E9/L Normal 0.0-0.2 [facility] Comment on above: Performed By: #### C BCA, 77353-2, CMP, 1988-5, 3040-3, 82037-0 #### [facility] ([id number]) [address] [place] [address] 34776 ABSOLUTE NEUTROPHIL 8.1 X10E9/L High 1.5-6.6 [facility] Comment on above: Performed By: #### C JOVANA, 13318-5, CMP, 1987-06, 3039-04, #### [facility] ([id number]) [address] [place] [address] 10263 Basophils/100 WBC (Bld) 0.2 % Normal [facility] Comment on above: Performed By: #### C JOVANA, 90592-9, [facility], 1987-06, 3039-04, #### [facility] ([id number]) [address] [place] [address] 72183 Eosinophils (Bld) [#/Vol] 0.2 10*3/uL Normal 0.0-0.4 [facility] Comment on above: Performed By: #### C JOVANA, 52194-1, [facility], 1987-06, 3039-04, #### [facility] ([id number]) [address] [place] [address] 43306 Eosinophils/100 WBC (Bld) 1.1 % Normal [facility] Comment on above: Performed By: #### Nori WHALEY, 65516-6, [facility], 1987-06, 3039-04, #### [facility] ([id number]) [address] [place] [address] 83142 Erythrocyte distribution width (RBC) [Ratio] 13.6 % Normal 11.5-15.0 [facility] Comment on above: Performed By: #### C JOVANA, 80894-8, CMP, 1987-06, 3039-04, #### [facility] ([id number]) [address] [place] [address] 56813 Hematocrit (Bld) [Volume fraction] 42.5 % Normal 35-47 [facility] Comment on above: Performed By: #### C BCA, 49996-9, CMP, 1987-06, 3039-04, #### [facility] ([id number]) [address] [place] [address] 26449 Hemoglobin (Bld) [Mass/Vol] 14.4 g/dL Normal 11.7-15.5 [facility] Comment on above: Performed By: #### Nori BCA, 47357-5, CMP, 1987-06, 3039-04, #### [facility] ([id number]) [address] [place] [address] 52510 Lymphocytes (Bld) [#/Vol] 4.1 10*3/uL High 1.0-3.5 [facility] Comment on above: Performed By: #### Nori WHALEY, 69084-2, CMP, 1987-06, 3039-04, #### [facility] ([id number]) [address] [place] [address] 32100 Lymphocytes/100 WBC (Bld) 31.4 % Normal [facility] Comment on above: Performed By: #### Nori WHALEY, 75655-4, CMP, 1987-06, 3039-04, #### [facility] ([id number]) [address] [place] [address] 19290 MCH (RBC) [Entitic mass] 28.4 pg Normal 27-34 [facility] Comment on above: Performed By: #### Nori BCA, 93433-1, CMP, 1987-06, 3039-04, #### [facility] ([id number]) [address] [place] [address] 74302 MCHC (RBC) [Mass/Vol] 33.8 g/dL Normal 32-36 [facility] Comment on above: Performed By: #### C BCA, 14897-2, CMP, 1987-06, 3039-04, #### [facility] ([id number]) [address] [place] [address] 73704 MCV (RBC) [Entitic vol] 84 fL Normal 80-100 [facility] Comment on above: Performed By: #### C JOVANA, 59872-4, CMP, 1987-06, 3039-04, #### [facility] ([id number]) [address] [place] [address] 59070 Monocytes (Bld) [#/Vol] 0.7 10*3/uL Normal 0-0.9 [facility] Comment on above: Performed By: #### Nori WHALEY, 37316-0, CMP, 1987-06, 3039-04, #### [facility] ([id number]) [address] [place] [address] 94239 Monocytes/100 WBC (Bld) 5.6 % Normal [facility] Comment on above: Performed By: #### C JOVANA, 36997-5, [facility], 1987-06, 3039-04, #### [facility] ([id number]) [address] [place] [address] 73397 Neutrophils/100 WBC (Bld) 61.7 % Normal [facility] Comment on above: Performed By: #### Nori WHALEY, 68099-4, [facility], 1987-06, 3039-04, #### [facility] ([id number]) [address] [place] [address] 19356 Platelet mean volume (Bld) [Entitic vol] 7.5 fL Normal 7-12 [facility] Comment on above: Performed By: #### Nori WHALEY, 13633-6, CMP, 1987-06, 3039-04, #### [facility] ([id number]) [address] [place] [address] Platelets (Bld) [#/Vol] 459 10*3/uL High 150-450 [facility] Comment on above: Performed By: #### C BCA, 45924-6, CMP, 1987-06, 3039-04, #### [facility] ([id number]) [address] [place] [address] 76112 RBC COUNT 5.06 X10E12/L Normal 3.80-5.20 [facility] Comment on above: Performed By: #### C BCA, 41928-3, CMP, 1987-06, 3039-04, #### [facility] ([id number]) [address] [place] [address] 25908 WBC (Bld) [#/Vol] 13.2 10*3/uL High 4.0-11.0 [facility] Comment on above: Performed By: #### Nori BCA, 52760-4, CMP, 1987-06, 3039-04, #### [facility] ([id number]) [address] [place] [address] 46563 COMPREHENSIVE METABOLIC PANE Sameer 04-20-2023 Albumin [Mass/Vol] 3.8 g/dL Normal 3.2-5.3 [facility] Comment on above: Performed By: #### Nori BCA, 25774-2, CMP, 1987-06, 3039-04, #### [facility] ([id number]) [address] [place] [address] 48952 ALP [Catalytic activity/Vol] 73 U/L Normal 39-130 [facility] Comment on above: Performed By: #### C BCA, 87921-0, CMP, 1987-06, 3039-04, #### [facility] ([id number]) [address] [place] [address] 02751 ALT [Catalytic activity/Vol] 41 U/L High 0-31 [facility] Comment on above: Performed By: #### C BCA, 69457-6, CMP, 1987-06, 3039-04, #### [facility] ([id number]) [address] [place] [address] 61610 Anion gap [Moles/Vol] 2 mmol/L Low 5-15 [facility] Comment on above: Performed By: #### Nori BCA, 98715-9, CMP, 1987-06, 3039-04, #### [facility] ([id number]) [address] [place] [address] 07844 AST [Catalytic activity/Vol] 32 U/L Normal 0-41 [facility] Comment on above: Performed By: #### Nori BCA, 92117-7, CMP, 1987-06, 3039-04, #### [facility] ([id number]) [address] [place] [address] 30768 Bilirubin [Mass/Vol] 0.7 mg/dL Normal 0.3-1.2 [facility] Comment on above: Performed By: #### Nori BCA, 53794-1, CMP, 1987-06, 3039-04, #### [facility] ([id number]) [address] [place] [address] 54338 Calcium [Mass/Vol] 7.9 mg/dL Low 8.5-10.5 [facility] Comment on above: Performed By: #### C BCA, 87196-5, CMP, 1987-06, 3039-04, #### [facility] ([id number]) [address] [place] [address] 04545 Chloride [Moles/Vol] 108 mmol/L Normal 98-109 [facility] Comment on above: Performed By: #### Nori BCA, 21851-1, CMP, 1987-06, 3039-04, #### [facility] ([id number]) [address] [place] [address] 73349 CO2 [Moles/Vol] 22 mmol/L Normal 22-32 [facility] Comment on above: Performed By: #### C BCA, 80026-8, CMP, 1987-06, 3039-04, #### [facility] ([id number]) [address] [place] [address] 45062 Creatinine [Mass/Vol] 0.59 mg/dL Normal 0.40-1.00 [facility] Comment on above: Result Comment: METH OD TRACEABLE TO IDMS STANDARD Performed By: #### C JOVANA, 41151-7, [facility], 1987-06, 3039-04, #### [facility] ([id number]) [address] [place] [address] 78469 eGFR (CKD-EPI) NON-RACE DEPENDENT >90 Normal >59 [facility] Comment on above: Result Comment: Reported eGFR is based on the CKD-EPI 2020 equation that does not use a race coefficient. Performed By: #### C JOVANA, 90064-2, [facility], 1987-06, 3039-04, #### [facility] ([id number]) [address] [place] [address] 21391 Glucose [Mass/Vol] 102 mg/dL High 65-99 [facility] Comment on above: Performed By: #### C BCA, 61959-8, [facility], 1987-06, 3039-04, #### [facility] ([id number]) [address] [place] [address] 15188 Potassium [Moles/Vol] 3.5 mmol/L Normal 3.5-5.0 [facility] Comment on above: Performed By: #### C BCA, 03688-4, [facility], 1987-06, 3039-04, #### [facility] ([id number]) [address] [place] [address] 73712 Protein [Mass/Vol] 6.6 g/dL Normal 6.0-8.0 [facility] Comment on above: Performed By: #### C BCA, 89617-0, CMP, 1987-06, 3039-04, #### [facility] ([id number]) [address] [place] [address] 86957 Sodium [Moles/Vol] 132 mmol/L Low 134-146 [facility] Comment on above: Performed By: #### C BCA, 03710-3, [facility], 1987-06, 3039-04, #### [facility] ([id number]) [address] [place] [address] 75359 Urea nitrogen [Mass/Vol] 10 mg/dL Normal 5-23 [facility] Comment on above: Performed By: #### C BCA, 41151-5, [facility], 1987-06, 3039-04, #### [facility] ([id number]) [address] [place] [address] 40232 CRP [Mass/Vol]on 04-20-2023 C REACTIVE PROTEIN 1.3 mg/dL High 0.000-0.744 [facility] Comment on above: Performed By: #### 2 106-3 #### [facility] ([id number]) [address] [place] [address] 10613 HCG ( test) Ql (U)o n 04-20-2023 Beta HCG ( test) Ql (U) Negative Normal NEG [facility] Comment on above: Performed By: #### 2 106-3 #### [facility] ([id number]) [address] [place] [address] 04927 LIPASEon 04-20-2023 Lipase [Catalytic activity/Vol] 33 U/L Normal 17-40 [facility] Comment on above: Performed By: #### 2 106-3 #### [facility] ([id number]) [address] [place] [address] 45707 Lactate (P franklin) [Moles/Vol]o n 04-20-2023 LACTATE W/REFLEX 1.7 mmol/L Normal 0.4-2.0 [facility] Comment on above: Result Comment: Result did not trigger repeat Lactate, re-order if needed. Performed By: #### C BCA, 36362-9, CMP, 1987-5, 3040-3, 02543-3 #### [facility] ([id number]) [address] [place] [address] 46240 MAGNESIUMon 04-20-2023 Magnesium [Mass/Vol] 2.1 mg/dL Normal 1.8-2.6 [facility] Comment on above: Performed By: #### 2 106-3 #### [facility] ([id number]) [address] [place] [address] 77461 SARS/FLU A+B/RSV by NAAT/Mol ecularon 04-20-2023 SARS/FLU A+B/RSV by NAAT/Molecular FLU A PCR Negative (qualifier value) FLU B PCR Negative (qualifier value) RSV by PCR Negative (qualifier value) SARS CoV 2 Not detected (qualifier value) NOTE The Xpert Xpress SARS-CoV-2/Flu/RSV Plus test is a rapid, multiplexed real-time RT-PCR test intended for the simultaneous qualitative detection and differentiation of SARS-CoV-2, influenza A, influenza B and respiratory syncytial virus (RSV) viral RNA from individuals suspected of respiratory viral infection consistent with COVID-19 by their healthcare provider. This test has not been validated in asymptomatic patients. The Xpert Xpress SARS-CoV-2 test is intended for use by qualified and trained operators who are performing tests using either [employer] or [employer] systems and is limited to laboratories that meet the CLIA requirements to perform high and moderate complexity tests. The Xpert Xpress SARS-CoV-2/Flu/RSV Plus is only for use under the Food and Drug Administration's Emergency Use Authorization. Results are for the simultaneous detection and differentiation of SARS-CoV-2, influenza A, influenza B and RSV nucleic acids in clinical specimens. SARS-CoV-2, influenza A, influenza B and RSV RNA identified by this test are generally detectable in upper respiratory samples during the acute phase of infection. Positive results are indicative of the presence of the identified virus, but do not rule out bacterial infection or co-infection with other pathogens not detected by this test. Clinical correlation with patient history and other diagnostic information is necessary to determine patient infection status. The agent detected may not be the definite cause of disease. Negative results do not preclude SARS-CoV-2, influenza A, influenza B and RSV infection and should not be used as the sole basis for treatment or other patient management decisions. Negative results must be combined with clinical observations, patient history and epidemiological information. An Invalid result may occur with specimen-associated inhibition unable to be resolved with specimen repeat. Fact Sheet for Healthcare Providers: https://www.[facility].gov/la kristyn/869279/download Fact Sheet for Patients: https://www.[facility].gov/la kristyn/168529/download Normal [facility] Comment on above: Performed By: #### 2 106-3 #### [facility] ([id number]) [address] [place] [address] 79024 URINE CULTUREon 04-20-2023 Bacteria identified Cx Nom (U) CULTURE RESULTS 50-100,000 ORGANISMS/ML NORMAL UROGENITAL DAVID Normal [facility] Comment on above: Performed By: #### 2 106-3 #### [facility] ([id number]) [address] [place] [address] 13151 URN MACROSCOPIC NURon 2023 BILIRUBIN JOSEPH Small Abnormal NEG [facility] Comment on above: Performed By: #### N UM #### [facility] ([id number]) [address] [place] [address] 48257 BLOOD/HGB JOSEPH Negative Normal NEG [facility] Comment on above: Performed By: #### N UM #### [facility] ([id number]) [address] [place] [address] 62398 GLUCOSE JOSEPH Negative Normal NEG [facility] Comment on above: Performed By: #### N UM #### [facility] ([id number]) [address] [place] [address] 74275 KETONES JOSEPH Trace Abnormal NEG [facility] Comment on above: Performed By: #### N UM #### [facility] ([id number]) [address] [place] [address] 51597 LEUKOCYTE ESTERASE JOSEPH Negative Normal NEG [facility] Comment on above: Performed By: #### N UM #### [facility] ([id number]) [address] [place] [address] 97534 NITRITE JOSEPH Negative Normal NEG [facility] Comment on above: Performed By: #### N UM #### [facility] ([id number]) [address] [place] [address] 94696 PH JOSEPH 5.5 Normal 5.0-8.5 [facility] Comment on above: Performed By: #### N UM #### [facility] ([id number]) [address] [place] [address] 22743 PROTEIN JOSEPH Negative Normal NEG [facility] Comment on above: Performed By: #### N UM #### [facility] ([id number]) [address] [place] [address] [place] [address] SPECIFIC GRAVITY JOSEPH >=1.030 Normal 1.003-1.035 [facility] Comment on above: Performed By: #### N UM #### [facility] ([id number]) [address] [place] [address] 97761 UROBILINOGEN JOSEPH 0.2 eu/dL Normal <1.1 [facility] Comment on above: Performed By: #### N UM #### [facility] ([id number]) [address] [place] [address] 16807 CHLAMYDIA/GC BY PCRon 2023 CHLAMYDIA/GC BY PCR SPECIMEN SOURCE VAGINAL SWAB CHLAMYDIA DNA(PCR) Negative (qualifier value) Chlamydia trachomatis not detected by nucleic acid amplification. This does not exclude the possibility of infection because results are dependent on adequate specimen collection. GONORRHOEAE DNA(PCR) Negative (qualifier value) Neisseria gonorrhoeae not detected by nucleic acid amplification. This does not exclude the possibility of infection because results are dependent on adequate specimen collection. Normal [facility] Comment on above: Performed By: #### C GS #### [facility] ([id number]) [facility]0 [facility], [address] [place] [address] HCG ( test) Ql (U)o n 04-01-2023 Beta HCG ( test) Ql (U) Negative Normal NEG [facility] Comment on above: Performed By: #### 2 106-3 #### [facility] ([id number]) [address] [place] [id number] URINE CULTUREon 04-01-2023 Bacteria identified Cx Nom (U) CULTURE RESULTS 10-50,000 ORGANISMS/mL NORMAL UROGENITAL DAVID Normal [facility] Comment on above: Performed By: #### 6 30-4 #### [facility] ([id number]) [address] [place] [address], [address] [place] [address] URN MACROSCOPIC NURon 2023 BILIRUBIN JOSEPH Negative Normal [facility] Comment on above: Performed By: #### N UM #### [facility] ([id number]) [address] [place] [id number] BLOOD/HGB JOSEPH Negative Normal NEG [facility] Comment on above: Performed By: #### N UM #### [facility] ([id number]) [address] [place] [address] GLUCOSE OJSEPH Negative Normal [facility] Comment on above: Performed By: #### N UM #### [facility] ([id number]) [address] [place] [address] KETONES JOSEPH Negative Normal NEG [facility] Comment on above: Performed By: #### N UM #### [facility] ([id number]) [address] [place] [address] LEUKOCYTE ESTERASE JOSEPH Negative Normal NEG [facility] Comment on above: Performed By: #### N UM #### [facility] ([id number]) [address] [place] [address] NITRITE JOSEPH Negative Normal NEG [facility] Comment on above: Performed By: #### N UM #### [facility] ([id number]) [address] [place] [address] PH JOSEPH 5.5 Normal 5.0-8.5 [facility] Comment on above: Performed By: #### N UM #### [facility] ([id number]) [address] [place] [id number] PROTEIN JOSEPH Negative Normal NEG [facility] Comment on above: Performed By: #### N UM #### [facility] ([id number]) [address] [place] [address] SPECIFIC GRAVITY JOSEPH >=1.030 Normal 1.003-1.035 [facility] Comment on above: Performed By: #### N UM #### [facility] ([id number]) [address] [place] [address] UROBILINOGEN JOSEPH 0.2 eu/dL Normal <1.1 [facility] Comment on above: Performed By: #### N UM #### [facility] ([id number]) [address] [place] [id number] VAGINITIS PANEL PCRon 2023 VAGINITIS PANEL PCR BACT. VAGINOSIS DNA Not detected (qualifier value) Qualitative results are reported based on detection and quantitation of targeted organism markers which include: Lactobacillus spp. (L. crispatus and L. jensenii), Gardnerella vaginalis, Atopobium vaginae, Bacterial Vaginosis Associated Bacteria-2 (BVAB-2) and Megasphaera-1 GRECIA SPECIES DNA Not detected (qualifier value) Grecia species not detected include: C. albicans, C. tropicalis, C. parapsilosis or C. dubliniensis GRECIA KRUSEI DNA Not detected (qualifier value) No Grecia krusei detected GRECIA GLABRATA DNA Detected (qualifier value) Grecia glabrata detected Literature studies show between 8-20% Fluconazole resistance for Grecia glabrata TRICHOMONAS VAG DNA Not detected (qualifier value) No Trichomonas vaginalis detected NOTE BD MAX Vaginal Panel has not been evaluated for patients under 18 years old. Results for these patients should be reviewed and assessed in accordance with clinical presentation to determine patient diagnosis. Normal [facility] Comment on above: Performed By: #### V PPCR #### [facility] ([id number]) [address] [place] [address], [address] [place] [address] Amphetamine Screen Ql (U)Ord ered By: oMe Villagomez on 10-16-2022 Amphetamines Ql (U) Negative Negative [facility] Barbiturates [Presence] in U rine by Screen methodOrdered By: Moe Villagomez on 10-16-2022 Barbiturates Screen Ql (U) Negative Negative [facility] Benzodiazepines Screen Ql (U )Ordered By: Moe Villagomez on 10-16-2022 Benzodiazepines Ql (U) Negative Negative [facility] Benzoylecgonine [Presence] i n Urine by Screen methodOrdered By: Moe Villagomez on 10-16-2022 Benzoylecgonine Screen Ql (U) Negative Negative [facility] Cannabinoids [Presence] in U rine by Screen methodOrdered By: Moe Villagomez on 10-16-2022 Cannabinoids Screen Ql (U) Positive Negative [facility] Comment on above: These are unconfirme d results and should not be used for legal purposes. Drug Cut-Off Concentration: AMPH 1000 ng/mL MURPHY 200 ng/mL MESHA 200 ng/mL COCM 300 ng/mL OP 300 ng/mL PCP 25 ng/mL THC 20 ng/mL Opiates [Presence] in Urine by Screen methodOrdered By: Moe Ditty on 10-16-2022 Opiates Screen Ql (U) Negative Negative [facility] Phencyclidine Screen Ql (U)O rdered By: Moe Villagomez on 10-16-2022 Phencyclidine Ql (U) Negative Negative [facility] Lab Reportson 10-02-2022 Lab Reports [id number] 0CD:127 Normal [facility] Physician Referralon 023 Physician Referral [id number] 0CD:127 Normal [facility] Lab Reportson 09-04-2022 Lab Reports [id number] 0CD:127 Normal [facility] Physician Referralon 023 Physician Referral [id number] 0CD:127 Normal [facility] CULTURE URINEon 10-09-2021 CULTURE URINE Isolate 1 Escherichia coli >100,000 cfu/mL of ORGANISM 1 Escherichia coli ANTIBIOTIC M.I.C RX STATUS Ampicillin >=32 R F Ampicillin/Sulbactam >=32 R F Piperacillin/Tazobacta m 8 S F Cefazolin >=64 R F Ceftazidime 32 R F Ceftriaxone <=1 S F Ertapenem >=8 R F Imipenem 0.5 S F Amikacin <=2 S F Gentamicin <=1 S F Tobramycin <=1 S F Ciprofloxacin <=0.25 S F Levofloxacin 0.25 S F Nitrofurantoin <=16 S F Trimethoprim/Sulfameth oxazole <=20 S F Normal [facility] Comment on above: Performed By: #### E RUR #### [facility] [address] [place] [address] Dr. Eli Ellison UA RANDOM W/MICROSCOPICon BACTERIA NONE SEEN Normal NONE SEEN [facility] Comment on above: Performed By: #### U AMIC #### [facility] [address] [address] [address] Eli Ellison Bilirubin Ql (U) Negative Normal NEGATIVE [facility] Comment on above: Performed By: #### U AMIC #### [facility] [address] [address] [address] Eli Ellison CAST NONE SEEN Normal NONE SEEN [facility] Comment on above: Performed By: #### U AMIC #### [facility] [address] [address] [address] Eli Ellison Clarity (U) CLEAR Normal CLEAR [facility] Comment on above: Performed By: #### U AMIC #### [facility] [address] [address] [address] Eli Ellison Color (U) LT. YELLOW Normal YELLOW [facility] Comment on above: Performed By: #### U AMIC #### [facility] [address] [address] [address] Eli Ellison Crystals LM Nom (Urine sed) NONE SEEN Normal NONE SEEN [facility] Comment on above: Performed By: #### U AMIC #### [facility] [address] [address] [address] Eli Ellison Epithelial cells LM Ql (Urine sed) MODERATE Abnormal NONE SEEN /RARE [facility] Comment on above: Performed By: #### U AMIC #### [facility] [address] [address] [address] Eli Ellison Glucose Ql (U) Negative Normal NEGATIVE [facility] Comment on above: Performed By: #### U AMIC #### [facility] [address] [address] [address] Eli Ellison Hemoglobin Ql (U) Negative Normal NEGATIVE [facility] Comment on above: Performed By: #### U AMIC #### [facility] [address] [address] [address] Eli Ellison Ketones Ql (U) Negative Normal NEGATIVE [facility] Comment on above: Performed By: #### U AMIC #### [facility] [address] [address] [address] Eli Ellison LEUKOCYTES Negative Normal NEGATIVE [facility] Comment on above: Performed By: #### U AMIC #### [facility] [address] [address] [address] Eli Ellison MUCOUS NONE SEEN Normal NONE SEEN [facility] Comment on above: Performed By: #### U AMIC #### [facility] [address] [place] [address] Dr. Eli Ellison Nitrite Ql (U) Negative Normal NEGATIVE [facility] Comment on above: Performed By: #### U AMIC #### [facility] [address] [place] [address] Dr. Eli Ellison pH (U) 7.0 [pH] Normal 5-9 [facility] Comment on above: Performed By: #### U AMIC #### [facility] [address] [place] [address] Dr. Eli Ellison RBC NONE SEEN Abnormal 0-2 [facility] Comment on above: Performed By: #### U AMIC #### [facility] [address] [place] [address] Dr. Eli Ellison SPEC GRAVITY 1.020 Normal 1.005-<=1.025 [facility] Comment on above: Performed By: #### U AMIC #### [facility] [address] [place] [address] Dr. Eli Ellison UA PROTEIN Negative Normal NEGATIVE/ TRACE [facility] Comment on above: Performed By: #### U AMIC #### [facility] [address] [place] [address] Dr. Eli Ellison Urobilinogen Qn (U) 0.2 {Alexandre'U}/dL Normal 0.2 - 1. 0 [facility] Comment on above: Performed By: #### U AMIC #### [facility] [address] [place] [address] Dr. Eli Ellison WBC NONE SEEN Normal NONE SEEN [facility] Comment on above: Performed By: #### U AMIC #### [facility] [address] [place] [address] Dr. Eli Ellison HELICOBACTER PYLORI AG STOOL on 10-06-2021 H. pylori Stool Ag, EIA Negative Normal Negative [facility] Comment on above: Performed By: #### E RUR #### [facility] [address] [place] [address] Dr. Eli Ellison AMYLASEon 10-04-2021 Amylase [Catalytic activity/Vol] 52 U/L Normal 25-115 [facility] Comment on above: Performed By: #### L IPA, FATIMAH, CMP #### [facility] [address] [place] [address] Dr. Eli Ellison CBC AUTO DIFFon 10-04-2021 BASO # 0.0 103/ul Normal 0.0-0.1 [facility] Comment on above: Performed By: #### E RUR #### [facility] [address] [place] [address] Dr. Eli Ellison Basophils/100 WBC (Bld) 0.4 % Normal 0.2-2.0 [facility] Comment on above: Performed By: #### E RUR #### [facility] [address] [place] [address] Dr. Eli Ellison EO # 0.1 103/ul Normal 0.0-0.7 [facility] Comment on above: Performed By: #### E RUR #### [facility] [address] [place] [address] Dr. Eli Ellison Eosinophils/100 WBC (Bld) 0.8 % Critically low 0.9-7.0 [facility] Comment on above: Performed By: #### E RUR #### [facility] [address] [place] [address] Dr. Eli Ellison Erythrocyte distribution width (RBC) [Ratio] 13.4 % Normal 11.0-15.0 [facility] Comment on above: Performed By: #### E RUR #### [facility] [address] [place] [address] Dr. Eli Ellison Hematocrit (Bld) [Volume fraction] 42.4 % Normal 36.0-48.0 [facility] Comment on above: Performed By: #### E RUR #### [facility] [address] [address] [address] Eli Ellison Hemoglobin (Bld) [Mass/Vol] 13.5 g/dL Normal 12.0-16.0 [facility] Comment on above: Performed By: #### E RUR #### [facility] [address] [address] [address] Eli Ellison IG # 0.03 10e3/ul Normal 0.00-0.03 [facility] Comment on above: Performed By: #### E RUR #### [facility] [address] [place] [address] Dr. Eli Ellison IG % 0.3 % Normal 0.0-0.5 [facility] Comment on above: Performed By: #### E RUR #### [facility] [address] [place] [address] Dr. Eli Ellison LYMPH # 3.0 103/ul Normal 1.2-3.8 [facility] Comment on above: Performed By: #### E RUR #### [facility] [address] [place] [address] Dr. Eli Ellison Lymphocytes/100 WBC (Bld) 29.5 % Normal 20.5-60.0 [facility] Comment on above: Performed By: #### E RUR #### [facility] [address] [place] [address] Dr. Eli Ellison MANUAL DIFF REQ NO Normal [facility] Comment on above: Performed By: #### E RUR #### [facility] [address] [place] [address] Dr. Eli Ellison MCH (RBC) [Entitic mass] 27.3 pg Normal 26.7-34.0 [facility] Comment on above: Performed By: #### E RUR #### [facility] [address] [place] [address] Dr. Eli Ellison MCHC (RBC) [Mass/Vol] 31.8 g/dL Normal 29.9-35.2 [facility] Comment on above: Performed By: #### E RUR #### [facility] [address] [address] [address] Eli Ellison MCV (RBC) [Entitic vol] 85.8 fL Normal 81.0-99.0 [facility] Comment on above: Performed By: #### E RUR #### [facility] [address] [place] [address] Dr. Eli Ellison MONO # 0.6 103/ul Normal 0.3-0.8 [facility] Comment on above: Performed By: #### E RUR #### [facility] [address] [place] [address] Dr. Eli Ellison Monocytes/100 WBC (Bld) 6.3 % Normal 1.7-12.0 [facility] Comment on above: Performed By: #### E RUR #### [facility] [address] [place] [address] Dr. Eli Ellison NEUT # 6.3 103/ul Normal 1.4-6.5 [facility] Comment on above: Performed By: #### E RUR #### [facility] [address] [place] [address] Dr. Eli Ellison Neutrophils/100 WBC (Bld) 62.7 % Normal 43.0-75.0 [facility] Comment on above: Performed By: #### E RUR #### [facility] [address] [place] [address] Dr. Eli Ellison Platelet mean volume (Bld) [Entitic vol] 9.3 fL Critically low 9.5-13.5 [facility] Comment on above: Performed By: #### E RUR #### [facility] [address] [place] [address] Dr. Eli Ellison PLT 356 103/ul Normal 150-450 [facility] Comment on above: Performed By: #### E RUR #### [facility] [address] [place] [address] Dr. Eli Ellison RBC 4.94 106/ul Normal 4.20-5.40 [facility] Comment on above: Performed By: #### E RUR #### [facility] [address] [place] [address] Dr. Eli Ellison WBC 10.1 103/ul Normal 4.0-11.0 [facility] Comment on above: Performed By: #### E RUR #### [facility] [address] [address] [address] Eli Ellison LIPASEon 10-04-2021 Lipase [Catalytic activity/Vol] 81.0 U/L Normal 73.0-393.0 [facility] Comment on above: Performed By: #### L IPA FATIMAH, CMP #### [facility] [address] [address] [address] Eli Ellison PROF 14(COMP METB)on 022 Albumin [Mass/Vol] 3.6 g/dL Normal 3.4-5.0 [facility] Comment on above: Performed By: #### L IPA FATIMAH, CMP #### [facility] [address] [address] [address] Eli Ellison Albumin/Globulin [Mass ratio] 1.2 {ratio} Normal [facility] Comment on above: Performed By: #### L IPA FATIMAH, CMP #### [facility] [address] [address] [address] Eli Ellison ALP [Catalytic activity/Vol] 72 U/L Normal 46-116 [facility] Comment on above: Performed By: #### L IPA FATIMAH, CMP #### [facility] [address] [address] [address] Eli Ellison ALT [Catalytic activity/Vol] 55 U/L Normal 14-59 [facility] Comment on above: Performed By: #### L IPA, FATIMAH, CMP #### [facility] [address] [address] [address] Eli Ellison Anion gap [Moles/Vol] 13.3 mmol/L Normal [facility] Comment on above: Performed By: #### L IPA, FATIMAH, CMP #### [facility] [address] [address] [address] Eli Ellison AST [Catalytic activity/Vol] 31 U/L Normal 15-37 [facility] Comment on above: Performed By: #### L IPA, FATIMAH, CMP #### [facility] [address] [address] [address] Eli Ellison Bilirubin [Mass/Vol] 0.8 mg/dL Normal 0.2-1.0 [facility] Comment on above: Performed By: #### L IPA, FATIMAH, CMP #### [facility] [address] [place] [address] Dr. Eli Ellison Calcium [Mass/Vol] 8.6 mg/dL Normal 8.5-10.1 [facility] Comment on above: Performed By: #### L IPA, FATIMAH, CMP #### [facility] [address] [place] [address] Dr. Eli Ellison Chloride [Moles/Vol] 103 mmol/L Normal 98-107 [facility] Comment on above: Performed By: #### L IPA FATIMAH, CMP #### [facility] [address] [place] [address] Dr. Eli Ellison CO2 [Moles/Vol] 26.4 mmol/L Normal 21.0-32.0 [facility] Comment on above: Performed By: #### L IPA FATIMAH, CMP #### [facility] [address] [place] [address] Dr. Eli Ellison Creatinine [Mass/Vol] 0.44 mg/dL Critically low 0.55-1.02 [facility] Comment on above: Performed By: #### L IPA FATIMAH, CMP #### [facility] [address] [place] [address] Dr. Eli Ellison EGFR-AF SCOTTISH >60 Normal >=60 [facility] Comment on above: Performed By: #### L IPA, FATIMAH, CMP #### [facility] [address] [place] [address] Dr. Eli Ellison EGFR-NON AF SCOTTISH >60 Normal >=60 [facility] Comment on above: Performed By: #### L IPA, FATIMAH, CMP #### [facility] [address] [place] [address] Dr. Eli Ellison Globulin (S) [Mass/Vol] 2.9 g/dL Normal [facility] Comment on above: Performed By: #### L FATIMAH COLE, CMP #### [facility] [address] [address] [address] Eli Ellison Glucose [Mass/Vol] 91 mg/dL Normal 74-106 [facility] Comment on above: Performed By: #### L FATIMAH COLE, CMP #### [facility] [address] [place] [address] Dr. Eli Ellison Potassium [Moles/Vol] 3.7 mmol/L Normal 3.5-5.1 [facility] Comment on above: Performed By: #### L FATIMAH COLE, CMP #### [facility] [address] [place] [address] Dr. Eli Ellison Protein [Mass/Vol] 6.5 g/dL Normal 6.4-8.2 [facility] Comment on above: Performed By: #### L FATIMAH COLE, CMP #### [facility] [address] [place] [address] Dr. Eli Ellison Sodium [Moles/Vol] 139 mmol/L Normal 136-145 [facility] Comment on above: Performed By: #### L FATIMAH COLE, CMP #### [facility] [address] [place] [address] Dr. Eli Ellison Urea nitrogen [Mass/Vol] 7.0 mg/dL Normal 7.0-18.0 [facility] Comment on above: Performed By: #### L FATIMAH COLE, CMP #### [facility] [address] [place] [address] Dr. Eli Ellison Urea nitrogen/Creatinine [Mass ratio] 15.9 mg/mg Normal [facility] Comment on above: Performed By: #### L FATIMAH COLE, CMP #### [facility] [address] [place] [address] Dr. Eli Ellison GI PANEL (PCR)on 07-12-2021 Adenovirus F 40/41 Not detected Normal NOT DETECTED [facility] Comment on above: Performed By: #### G IPANEL #### [facility] [address] [place] [address] Dr. Eli Ellison Astrovirus Not detected Normal NOT DETECTED [facility] Comment on above: Performed By: #### G IPANEL #### [facility] [address] [place] [address] Dr. Eli Ellison C. Diff toxin A/B Not detected Normal NOT DETECTED [facility] Comment on above: Performed By: #### G IPANEL #### [facility] [address] [place] [address] Dr. Eli Ellison Campylobacter Not detected Normal NOT DETECTED [facility] Comment on above: Performed By: #### G IPANEL #### [facility] [address] [place] [address] Dr. Eli Ellison Cryptosporidium Not detected Normal NOT DETECTED [facility] Comment on above: Performed By: #### G IPANEL #### [facility] [address] [place] [address] Dr. Eli Ellison Cyclos. Cayetanensis Not detected Normal NOT DETECTED [facility] Comment on above: Performed By: #### G IPANEL #### [facility] [address] [place] [address] Dr. Eli Ellison E. Coli O157 Not Applicable Normal Not Applicable [facility] Comment on above: Performed By: #### G IPANEL #### [facility] [address] [place] [address] Dr. Eli Ellison E. histolytica Not detected Normal NOT DETECTED [facility] Comment on above: Performed By: #### G IPANEL #### [facility] [address] [place] [address] Dr. Eli Ellison EAEC Not detected Normal NOT DETECTED [facility] Comment on above: Performed By: #### G IPANEL #### [facility] [address] [place] [address] Dr. Eli Ellison EIEC Not detected Normal NOT DETECTED [facility] Comment on above: Performed By: #### G IPANEL #### [facility] [address] [place] [address] Dr. Eli Ellison EPEC Not detected Normal NOT DETECTED [facility] Comment on above: Performed By: #### G IPANEL #### [facility] [address] [address] [address] Eli Ellison ETEC Not detected Normal NOT DETECTED [facility] Comment on above: Performed By: #### G IPANEL #### [facility] [address] [address] [address] Eli Bess Lamblia Not detected Normal NOT DETECTED [facility] Comment on above: Performed By: #### G IPANEL #### [facility] [address] [address] [address] Eli CEVALLOS CONTROLS PASSED Normal [facility] Comment on above: Performed By: #### G IPANEL #### [facility] [address] [address] [address] Eli FRANCES TERESA HEADER GI PANEL BACTERIA Normal [facility] Comment on above: Performed By: #### G IPANEL #### [facility] [address] [place] [address] Dr. Eli DE PAZ ECOLI GI PANEL DIARRHEAGEN IC E.COLI / SHIGELLA Normal [facility] Comment on above: Performed By: #### G IPANEL #### [facility] [address] [place] [address] Dr. Eli DE PAZ INFO SEE BELOW Normal [facility] Comment on above: Result Comment: EAEC - Enteroaggregative E. Coli EPEC- Enteropathogenic E. Coli ETEC- Enterotoxigenic E. Coli lt/st STEC- Shigella-like toxin-producing E. Coli stx1/stx2 EIEC- Shigella/Enteroinvasive E. Coli Performed By: #### G IPANEL #### [facility] [address] [place] [address] Dr. Eli DE PAZ PARASITES GI PANEL PARASITES Normal [facility] Comment on above: Performed By: #### G IPANEL #### [facility] [address] [place] [address] Dr. Eli DE PAZ VIRUS GI PANEL VIRUSES Normal [facility] Comment on above: Performed By: #### G IPANEL #### [facility] [address] [place] [address] Dr. Eli Ellison Norovirus GI/GII Not detected Normal NOT DETECTED [facility] Comment on above: Performed By: #### G IPANEL #### [facility] [address] [place] [address] Dr. Eli Ellison P. Shigelloides Not detected Normal NOT DETECTED [facility] Comment on above: Performed By: #### G IPANEL #### [facility] [address] [address] [address] Eli Ellison Rotavirus A Not detected Normal NOT DETECTED [facility] Comment on above: Performed By: #### G IPANEL #### [facility] [address] [place] [address] Dr. Eli Ellison Salmonella Not detected Normal NOT DETECTED [facility] Comment on above: Performed By: #### G IPANEL #### [facility] [address] [place] [address] Dr. Eli Ellison Sapovirus Not detected Normal NOT DETECTED [facility] Comment on above: Performed By: #### G IPANEL #### [facility] [address] [place] [address] Dr. Eli Ellison STEC Not detected Normal NOT DETECTED [facility] Comment on above: Performed By: #### G IPANEL #### [facility] [address] [place] [address] Dr. Eli Ellison Vibrio Not detected Normal NOT DETECTED [facility] Comment on above: Performed By: #### G IPANEL #### [facility] [address] [place] [address] Dr. Eli Ellison Vibrio Cholera Not detected Normal NOT DETECTED [facility] Comment on above: Performed By: #### G IPANEL #### [facility] [address] [place] [address] Dr. Eli Ellison Y. Enterocolitica Not detected Normal NOT DETECTED [facility] Comment on above: Performed By: #### G IPANEL #### [facility] [address] [address] [address] Eli Ellison GLYCOHEMOGLOBIN A1Con 05-24- 2022 ADA RECOMMENDATION SEE BELOW Normal [facility] Comment on above: Result Comment: ADA RECOMMENDED LIMIT 4.0 - 6.0 ADA THERAPEUTIC TARGET < 7.0 ACTION SUGGESTED > 7.0 Performed By: #### A 1C #### [facility] [address] [address] [address] Eli Ellison Glucose [Mass/Vol] 105 mg/dL Normal [facility] Comment on above: Performed By: #### A 1C #### [facility] [address] [address] [address] Eli Ellison HbA1c (Bld) [Mass fraction] 5.3 % Normal 4.5-6.2 [facility] Comment on above: Performed By: #### A 1C #### [facility] [address] [place] [address] Dr. Eli Ellison PAP ACOG PANEL 2: 30 to 65on 07-12-2021 . . Normal [facility] Comment on above: Result Comment: Perf ormed at: WB Performed By: #### [id number] #### [facility] [address] [place] [address] Dr. Eli Ellison Age Gdln ACOG Testing 30-65 Normal [facility] Comment on above: Performed By: #### [id number] #### [facility] [address] [place] [address] Dr. Eli Ellison DIAGNOSIS: Comment Normal [facility] Comment on above: Result Comment: NEGA TIVE FOR INTRAEPITHELIAL LESION OR MALIGNANCY. Performed at: WB Performed By: #### [id number] #### [facility] [address] [address] [address] Eli Ellison HPV Aptima Negative Normal Negative [facility] Comment on above: Result Comment: This nucleic acid amplification test detects fourteen high-risk HPV types (16,18,31,33,35,39,45,51,52,56,58,59,66,68) without differentiation. Performed at: =G Performed By: #### [id number] #### [facility] [address] [place] [address] Dr. Eli Ellison Methodology: Comment Normal [facility] Comment on above: Result Comment: This liquid based ThinPrep(R) pap test was screened with the use of an image guided system. Performed at: WB Performed By: #### [id number] #### [facility] [address] [place] [address] Dr. Eli Ellison Note: Comment Normal [facility] Comment on above: Result Comment: The Pap smear is a screening test designed to aid in the detection of premalignant and malignant conditions of the uterine cervix. It is not a diagnostic procedure and should not be used as the sole means of detecting cervical cancer. Both false-positive and false-negative reports do occur. . Performed at: WB Performed By: #### [id number] #### [facility] [address] [place] [address] Dr. Eli Ellison Performed by: Comment Normal [facility] Comment on above: Result Comment: Ravi Moreno, Salmon Troll Fisher (ASCP) Performed at: WB Performed By: #### [id number] #### [facility] [address] [place] [address] Dr. Eli Ellison Specimen adequacy: Comment Normal [facility] Comment on above: Result Comment: Sati sfactory for evaluation. No endocervical component is identified. Performed at: WB Performed By: #### [id number] #### [facility] [address] [place] [address] Dr. Eli Ellison VAGINITIS/VAGINOSIS DNA PROB Willem 07-06-2021 Grecia species Negative Normal Negative [facility] Comment on above: Performed By: #### E RUR #### [facility] [address] [place] [address] Dr. Eli Ellison Gardnerella vaginalis Negative Normal Negative [facility] Comment on above: Performed By: #### E RUR #### [facility] [address] [place] [address] Dr. Eli Ellison Trichomonas vaginalis Negative Normal Negative [facility] Comment on above: Performed By: #### E RUR #### [facility] [address] [place] [address] Dr. Eli Ellison CULTURE THROATon 03-17-2021 CULTURE THROAT Culture Observations : NORMAL RESPIRATORY DAVID. Normal [facility] Comment on above: Performed By: #### E RUR #### [facility] [address] [place] [address] Dr. Eli Ellison Covid-19 PCR (CVDTBH)on 02-20 SARS-CoV-2 (COVID-19) RNA NANCY+probe Ql (Unsp spec) Not detected Normal NOT DETECTED [facility] Comment on above: Result Comment: This test is not yet approved or cleared by the [place] FDA. When there are no FDA-approved or cleared tests available, and other criteria are met, FDA can make tests available under an emergency access mechanism called an Emergency Use Authorization (EUA). The EUA for this test is supported by the Trolley Wire Installer of Health and Human Service's (HHS's) [...] SARS-CoV-2. Performed By: #### E RUR #### [facility] [address] [address] [address] Eli Ellison STREPT SCREENon 03-17-2021 STREP SCREEN A Negative Normal NEGATIVE [facility] Comment on above: Performed By: #### E RUR #### [facility] [id number] Eli Ellison Covid-19 PCR (CVDTBH)on 01-20 SARS-CoV-2 (COVID-19) RNA NANCY+probe Ql (Unsp spec) Not detected Normal NOT DETECTED [facility] Comment on above: Result Comment: When [...] for this test is supported by the Trolley [employer] Installer of Health and Human Service's declaration [...] longer be used). Performed By: #### C VDTB #### [facility] [address] [place] [address] Dr. Eli Ellison ER URINE PROFILEon 1 Bilirubin Ql (U) SMALL Abnormal NEGATIVE [facility] Comment on above: Performed By: #### A 1C #### [facility] [address] [place] [address] Dr. Eli Ellison Clarity (U) CLEAR Normal CLEAR [facility] Comment on above: Performed By: #### A 1C #### [facility] [address] [place] [address] Dr. Eli Ellison Color (U) YELLOW Normal YELLOW [facility] Comment on above: Performed By: #### A 1C #### [facility] [address] [place] [address] Dr. Eli Ellison ERUAHD A micrscopic examination will be performed if indicated. Normal [facility] Comment on above: Performed By: #### A 1C #### [facility] [address] [place] [address] Dr. Eli Ellison Glucose Ql (U) Negative Normal NEGATIVE [facility] Comment on above: Performed By: #### A 1C #### [facility] [address] [place] [address] Dr. Eli Ellison Hemoglobin Ql (U) Negative Normal NEGATIVE [facility] Comment on above: Performed By: #### A 1C #### [facility] [address] [place] [address] Dr. Eli Ellison Ketones Ql (U) 40 mg/dl Abnormal NEGATIVE [facility] Comment on above: Performed By: #### A 1C #### [facility] [address] [place] [address] Dr. Eli Ellison LEUKOCYTES Negative Normal NEGATIVE [facility] Comment on above: Performed By: #### A 1C #### [facility] [address] [place] [address] Dr. Eli Ellison Nitrite Ql (U) Negative Normal NEGATIVE [facility] Comment on above: Performed By: #### A 1C #### [facility] [address] [place] [address] Dr. Eli Ellison pH (U) 5.5 [pH] Normal 5-9 [facility] Comment on above: Performed By: #### A 1C #### [facility] [address] [place] [address] Dr. Eli Ellison SPEC GRAVITY 1.025 Normal 1.005-<=1.025 [facility] Comment on above: Performed By: #### A 1C #### [facility] [address] [place] [address] Dr. Eli Ellison UA PROTEIN Negative Normal NEGATIVE/ TRACE [facility] Comment on above: Performed By: #### A 1C #### [facility] [address] [place] [address] Dr. Eli Ellison UR MICRO IND NOT INDICATED Normal [facility] Comment on above: Performed By: #### A 1C #### [facility] [address] [place] [address] Dr. Eli Ellison Urobilinogen Qn (U) 1.0 {Alexandre'U}/dL Normal 0.2 - 1. 0 [facility] Comment on above: Performed By: #### A 1C #### [facility] [address] [place] [address] Dr. Eli Ellison URon 02-07-2021 , QUAL Negative Normal NEGATIVE [facility] Comment on above: Performed By: #### A 1C #### [facility] [address] [address] [address] Eli Ellison XR CHEST 1 Von [...] by: FRANCISCO BROWN Date: 2021-02-07 10:18 Normal [facility] US PELVIS AND TRANSVAGon US PELVIS [...] by: FRANCISCO BROWN Date: 2021-01-17 15:35 Normal [facility] PAP ACOG PANEL 2: 30 to 65on 12-27-2020 . . Normal [facility] Comment on above: Result Comment: Perf ormed at: WB Performed By: #### E RUR #### [facility] [address] [address] [address] Eli Ellison Age Gdln ACOG Testing 30-65 Normal [facility] Comment on above: Performed By: #### E RUR #### [facility] [address] [address] [address] Eli Ellison DIAGNOSIS: Comment Abnormal [facility] Comment on above: Result Comment: EPIT HELIAL CELL ABNORMALITY. ATYPICAL SQUAMOUS CELLS OF UNDETERMINED SIGNIFICANCE (ASC-US). Performed at: WB Performed By: #### E RUR #### [facility] [address] [place] [address] Dr. Eli Ellison Electronically signed by: Comment Normal [facility] Comment on above: Result Comment: Martha Orona MD, Pathologist Performed at: WB Performed By: #### E RUR #### [facility] [address] [place] [address] Dr. Eli Ellison HPV Aptima Negative Normal Negative [facility] Comment on above: Result Comment: This nucleic acid amplification test detects fourteen high-risk HPV types (16,18,31,33,35,39,45,51,52,56,58,59,66,68) without differentiation. Performed at: =G Performed By: #### E RUR #### [facility] [address] [place] [address] Dr. Eli Ellison Methodology: Comment Normal [facility] Comment on above: Result Comment: This liquid based ThinPrep(R) pap test was screened with the use of an image guided system. Performed at: WB Performed By: #### E RUR #### [facility] [address] [place] [address] Dr. Eli Ellison Note: Comment Normal [facility] Comment on above: Result Comment: The Pap smear is a screening test designed to aid in the detection of premalignant and malignant conditions of the uterine cervix. It is not a diagnostic procedure and should not be used as the sole means of detecting cervical cancer. Both false-positive and false-negative reports do occur. . Performed at: WB Performed By: #### E RUR #### [facility] [address] [place] [address] Dr. Eli Ellison Pathologist Provided ICD10 Comment Normal [facility] Comment on above: Result Comment: [id number] Performed at: WB Performed By: #### E RUR #### [facility] [address] [place] [address] Dr. Eli Ellison Performed by: Comment Normal [facility] Comment on above: Result Comment: Katarina Jacobson, Salmon Troll Fisher (ASCP) Performed at: WB Performed By: #### E RUR #### [facility] [address] [place] [address] Dr. Eli Ellison Specimen adequacy: Comment Normal [facility] Comment on above: Result Comment: Sati sfactory for evaluation. No endocervical component is identified. Performed at: WB Performed By: #### E RUR #### [facility] [address] [place] [address] Dr. Eli Ellison VAGINITIS/VAGINOSIS DNA PROB Willem 12-08-2020 Grecia species Negative Normal Negative [facility] Comment on above: Performed By: #### V AGINT #### [facility] [address] [place] [address] Dr. Eli Ellison Gardnerella vaginalis Negative Normal Negative [facility] Comment on above: Performed By: #### V AGINT #### [facility] [address] [place] [address] Dr. Eli Ellison Trichomonas vaginalis Negative Normal Negative [facility] Comment on above: Performed By: #### V AGINT #### [facility] [address] [place] [address] Dr. Eli Ellison ER URINE PROFILEon 1 Bilirubin Ql (U) Negative Normal NEGATIVE [facility] Comment on above: Performed By: #### E RUR #### [facility] [address] [place] [address] Dr. Eli Ellison Clarity (U) CLEAR Normal CLEAR [facility] Comment on above: Performed By: #### E RUR #### [facility] [address] [place] [address] Dr. Eli Ellison Color (U) YELLOW Normal YELLOW [facility] Comment on above: Performed By: #### E RUR #### [facility] [address] [place] [address] Dr. Eli OLSEN A micrscopic examination will be performed if indicated. Normal [facility] Comment on above: Performed By: #### E RUR #### [facility] [address] [place] [address] Dr. Eli Ellison Glucose Ql (U) Negative Normal NEGATIVE [facility] Comment on above: Performed By: #### E RUR #### [facility] [address] [place] [address] Dr. Eli Ellison Hemoglobin Ql (U) Negative Normal NEGATIVE [facility] Comment on above: Performed By: #### E RUR #### [facility] [address] [place] [address] Dr. Eli Ellison Ketones Ql (U) TRACE Abnormal NEGATIVE [facility] Comment on above: Performed By: #### E RUR #### [facility] [address] [place] [address] Dr. Eli Ellison LEUKOCYTES Negative Normal NEGATIVE [facility] Comment on above: Performed By: #### E RUR #### [facility] [address] [place] [address] Dr. Eli Ellison Nitrite Ql (U) Negative Normal NEGATIVE [facility] Comment on above: Performed By: #### E RUR #### [facility] [address] [place] [address] Dr. Eli Ellison pH (U) 5.5 [pH] Normal 5-9 [facility] Comment on above: Performed By: #### E RUR #### [facility] [address] [place] [address] Dr. Eli Ellison SPEC GRAVITY >=1.030 Abnormal 1.005-<=1.025 [facility] Comment on above: Performed By: #### E RUR #### [facility] [address] [place] [address] Dr. Eli Ellison UA PROTEIN Negative Normal NEGATIVE/ TRACE [facility] Comment on above: Performed By: #### E RUR #### [facility] [address] [place] [address] Dr. Eli Ellison UR MICRO IND NOT INDICATED Normal [facility] Comment on above: Performed By: #### E RUR #### [facility] [address] [place] [address] Dr. Eli Ellison Urobilinogen Qn (U) 0.2 {Alexandre'U}/dL Normal 0.2 - 1. 0 [facility] Comment on above: Performed By: #### E RUR #### [facility] [address] [place], [place] [address] [facility] Barley IgE <0.34 Normal 0.00-0.34 [facility] Comment on above: Performed By: #### I FOODC #### [address] [address] Automatic Spreader Operator: Spencer Feliciano MD Beef IgE <0.34 Normal 0.00-0.34 [facility] Comment on above: Performed By: #### I FOODC #### [address] [address] Automatic Spreader Operator: Spencer Feliciano MD Cabbage IgE <0.34 Normal 0.00-0.34 [facility] Comment on above: Performed By: #### I FOODC #### [address] [address] Automatic Spreader Operator: Spencer Feliciano MD Carrot IgE <0.34 Normal 0.00-0.34 [facility] Comment on above: Performed By: #### I FOODC #### [facility] [address] [place] [id number] Automatic Spreader Operator: Spencer Feliciano MD Chicken IgE <0.34 Normal 0.00-0.34 [facility] Comment on above: Performed By: #### I FOODC #### [address] [address] Automatic Spreader Operator: Spencer Feliciano MD Codfish IgE <0.34 Normal 0.00-0.34 [facility] Comment on above: Performed By: #### I FOODC #### [facility] [employer] [address] [place] [id number] Automatic Spreader Operator: Spencer Feliciano MD [place] IgE <0.34 Normal 0.00-0.34 [facility] Comment on above: Performed By: #### I FOODC #### [address] [address] Automatic Spreader Operator: Spencer Feliciano MD Crab IgE <0.34 Normal 0.00-0.34 [facility] Comment on above: Performed By: #### I FOODC #### [address] [address] Automatic Spreader Operator: Spencer Feliciano MD Egg White IgE <0.34 Normal 0.00-0.34 [facility] Comment on above: Performed By: #### I FOODC #### [address] [address] Automatic Spreader Operator: Spencer Feliciano MD Grape IgE <0.34 Normal 0.00-0.34 [facility] Comment on above: Performed By: #### I FOODC #### [address] [address] Automatic Spreader Operator: Spencer Feliciano MD Lettuce IgE <0.34 Normal 0.00-0.34 [facility] Comment on above: Performed By: #### I FOODC #### [address] [address] Automatic Spreader Operator: Spencer Feliciano MD Milk (Cow) IgE <0.34 Normal 0.00-0.34 [facility] Comment on above: Performed By: #### I FOODC #### [address] [address] Automatic Spreader Operator: Spencer Feliciano MD [place] Chung IgE <0.34 Normal 0.00-0.34 [facility] Comment on above: Performed By: #### I FOODC #### [address] [address] Automatic Spreader Operator: Spencer Feliciano MD Oat IgE <0.34 Normal 0.00-0.34 [facility] Comment on above: Performed By: #### I FOODC #### [facility] [address] [address] Automatic Spreader Operator: Spencer Feliciano MD [place] IgE <0.34 Normal 0.00-0.34 [facility] Comment on above: Performed By: #### I FOODC #### [facility] [address] [place] [address] Automatic Spreader Operator: Spencer Feliciano MD Peanut IgE <0.34 Normal 0.00-0.34 [facility] Comment on above: Performed By: #### I FOODC #### [address] [address] Automatic Spreader Operator: Spencer Feliciano MD Pepper C. annuum IgE <0.34 Normal 0.00-0.34 [facility] Comment on above: Performed By: #### I FOODC #### [address] [address] Automatic Spreader Operator: Spencer Feliciano MD Pork IgE <0.34 Normal 0.00-0.34 [facility] Comment on above: Result Comment: ALLERGEN, INTERP, [...] anaphylaxis. Performed By: #### I FOODC #### [address] [address] Automatic Spreader Operator: Spencer Feliciano MD Potato IgE <0.34 Normal 0.00-0.34 [facility] Comment on above: Performed By: #### I FOODC #### [address] [address] Automatic Spreader Operator: Spencer Feliciano MD Rice IgE <0.34 Normal 0.00-0.34 [facility] Comment on above: Performed By: #### I FOODC #### [address] [address] Automatic Spreader Operator: Spencer Feliciano MD [place] IgE <0.34 Normal 0.00-0.34 [facility] Comment on above: Performed By: #### I FOODC #### [address] [address] Automatic Spreader Operator: Spencer Feliciano MD Shrimp IgE <0.34 Normal 0.00-0.34 [facility] Comment on above: Performed By: #### I FOODC #### [address] [address] Automatic Spreader Operator: Spencer Feliciano MD Soybean IgE <0.34 Normal 0.00-0.34 [facility] Comment on above: Performed By: #### I FOODC #### [address] [address] Automatic Spreader Operator: Spencer Feliciano MD Tomato IgE <0.34 Normal 0.00-0.34 [facility] Comment on above: Performed By: #### I FOODC #### [address] [address] Automatic Spreader Operator: Spencer Feliciano MD Tuna IgE <0.34 Normal 0.00-0.34 [facility] Comment on above: Performed By: #### I FOODC #### [address] [address] Automatic Spreader Operator: Spencer Feliciano MD Wheat IgE <0.34 Normal 0.00-0.34 [facility] Comment on above: Performed By: #### I FOODC #### [address] [address] Automatic Spreader Operator: Spencer Feliciano MD Celiac Disease Panelon 09-11 Gliadin Deam Pep IgA 0.8 U/mL Normal <7.0 [facility] Comment on above: Result Comment: CELIAC INTERPRETATION <7.0 Negative 7.0-10.0 Equivocal >10.0 Positive units: U/mL Performed By: #### C ELP #### [address] [address] Automatic Spreader Operator: Spencer Feliciano MD Gliadin Deam Pep IgG <0.4 Normal <7.0 [facility] Comment on above: Result Comment: CELIAC INTERPRETATION <7.0 Negative 7.0-10.0 Equivocal >10.0 Positive units: U/mL Performed By: #### C ELP #### [address] [address] Automatic Spreader Operator: Spencer Feliciano MD Tiss Transglutam IgA 0.3 U/mL Normal <7.0 [facility] Comment on above: Result Comment: CELIAC INTERPRETATION <7.0 Negative 7.0-10.0 Equivocal >10.0 Positive units: U/mL Performed By: #### C ELP #### [address] [address] Automatic Spreader Operator: Spencer Feliciano MD Celiac Disease Panelon 09-10 IgA [Mass/Vol] 119 mg/dL Normal 70-400 [facility] Comment on above: Performed By: #### C ELP #### [address] [address] Automatic Spreader Operator: Spencer Feliciano MD Sis Bonilla 2019 Immunoglobulin E 5 IU/mL Normal <101 [facility] Comment on above: Performed By: #### I [facility] #### [facility] [address] [place] [address] Automatic Spreader Operator: Spencer Feliciano MD XR LUMBAR SPINE (2-3 [...] Laine Khan MD 07/24/19 Final result Normal [facility] Mild facet arthropat hy at L4-5 and L5-S1. No acute finding by plain film imaging. [place], [place] EXAMINATION: THREE XRAY VIEWS OF THE [...] evaluate the spinal canal contents if indicated. [facility] [place] Incoming Radiant Results From [employer] - 07/24/2019 9:14 PM EDT EXAMINATION: THREE [...] No acute finding by plain film imaging. [facility] Vital Signs Date Time Vital Sign Value Performing Clinician Ludwin keith 10-23-2023 14:24-0400 Body height 160.02 cm TAIL DOGGER-C Bibi Chavez Work Phone: [facility] 10-23-2023 14:24-0400 Body mass index (BMI) [Ratio] 40.2 kg/m2 TAIL DOGGER-Nori Chavez Work Phone: [facility] 10-23-2023 14:24-0400 Body weight 103 kg TAIL DOGGER-C Bibi Chavez Work Phone: [facility] 09-12-2023 09:05-0400 Body height 160.02 cm [facility] 09-12-2023 09:05-0400 Body mass index (BMI) [Ratio] 41.8 kg/m2 [facility] 09-12-2023 09:05-0400 Body weight 107.04 kg [facility] 10-16-2022 09:37-0400 Diastolic blood pressure 71 mm[Hg] TAIL DOGGER-Nori Chavez Work Phone: [facility] 10-16-2022 09:37-0400 Heart rate 86 /min TAIL DOGGER-C Bibi Scott Work Phone: [facility] 10-16-2022 09:37-0400 Respiratory rate 16 /min TAIL DOGGER-C Bibi Scott Work Phone: [facility] 10-16-2022 09:37-0400 SaO2% (BldA) [Mass fraction] 97 % TAIL DOGGER-C Bibi Scott Work Phone: [facility] 10-16-2022 09:37-0400 Systolic blood pressure 136 mm[Hg] TAIL DOGGER-C Bibi Scott Work Phone: [facility] 10-16-2022 07:48-0400 Body height 160.02 cm TAIL DOGGER-C Bibi Scott Work Phone: [facility] 10-16-2022 07:48-0400 Body temperature 98.2 [degF] TAIL DOGGER-C Bibi Scott Work Phone: [facility] 10-16-2022 07:48-0400 Body weight 104.32 kg TAIL DOGGER-C Bibimichelle Chavez Work Phone: [facility] Encounters Encounter Date Encounter Type Care Provider Facility Start: 10-27-2023 End: 10-27-2023 Emergency department patient visit [facility] Start: 10-23-2023 End: 10-23-2023 ambulatory TAIL DOGGER-C Bibi Ember Chavez Work Phone: [facility] Work Phone: Start: 10-23-2023 End: 10-23-2023 Patient encounter procedure TAIL DOGGER-C Bibi Scott Work Phone: [facility] G[facility] Work Phone: Start: 10-14-2023 End: 10-14-2023 Emergency department patient visit [facility] Start: 10-04-2023 End: 10-04-2023 Emergency department patient visit [facility] Start: 09-22-2023 End: 09-22-2023 Emergency department patient visit [facility] Start: 09-20-2023 End: 09-20-2023 Patient encounter procedure TAIL DOGGER-C Bibi Chavez Work Phone: [facility] Work Phone: Start: 09-20-2023 End: 09-20-2023 ambulatory TAIL DOGGER-C Bibi Ember Chavez Work Phone: [facility] Work Phone: Start: 09-19-2023 End: 09-19-2023 ambulatory [facility] Start: 09-12-2023 End: 09-12-2023 ambulatory [facility] Work Phone: Start: 09-12-2023 End: 09-12-2023 Patient encounter procedure [facility] Work Phone: Start: 07-18-2023 End: 07-18-2023 Emergency department patient visit [facility] Start: 07-18-2023 End: 07-18-2023 ambulatory [facility] Start: 07-11-2023 End: 07-11-2023 ambulatory [facility] Start: 07-10-2023 End: 07-10-[address] [facility] Start: 06-27-2023 End: 06-27-2023 Emergency department patient visit BARBIE TOURE [facility] Start: 05-31-2023 End: 06-01-2023 Emergency department patient visit BARBIE BONE [facility] Start: 05-15-2023 End: 05-15-2023 Emergency department patient visit ARSALAN OLVERA [facility] Start: 04-20-2023 End: 04-22-2023 Emergency department patient visit ROSITA MOSLEY [facility] Start: 04-17-2023 End: 04-17-2023 Emergency department patient visit BIBI CHAVEZ [facility] Start: 04-01-2023 End: 04-01-2023 Emergency department patient visit BIBI CHAVEZ [facility] Start: 10-16-2022 Telephone encounter Perry [facility] Start: 10-16-2022 End: 10-16-2022 Admission to same day surgery center TAIL DOGGER-C Bibi Chavez Work Phone: [facility] Work Phone: Start: 10-16-2022 End: 10-16-2022 ambulatory TAIL DOGGER-C Bibi Pa Scott Work Phone: [facility] Work Phone: Start: 10-03-2022 ambulatory Manny DAVIS [facility] Start: 08-17-2022 ambulatory Manny DAVIS Facility:[facility] Start: 11-08-2021 ambulatory [facility] Start: 10-07-2021 End: 10-08-2021 ambulatory BIBI CHAVEZ Facility:[facility] Start: 10-04-2021 End: 10-05-2021 ambulatory BIBI CHAVEZ Facility:[facility] Start: 08-18-2021 ambulatory BIIB CHAVEZ Facility: [facility] Start: 07-12-2021 End: 07-13-2021 ambulatory BIBI CHAVEZ Facility:[facility] Start: 07-06-2021 Encounter for cervical smear to confirm findings of recent normal smear following initial abnormal smear DR ALONDRA JASON [facility] Start: 07-04-2021 End: 07-04-[address] ALONDRA [...] REQUEST Facility:[facility] Start: 12-06-2020 End: 12-06-2020 ambulatory NONE LISTED REQUEST Facility:[facility] Start: 11-22-2020 End: 11-22-2020 ambulatory ARLENE LEONE Facility:[facility] Start: 09-11-2019 End: 09-12-2019 Patient encounter procedure ELDA CATES [facility] Start: 07-24-2019 End: 07-27-2019 Patient encounter procedure ELDA CATES [facility] Start: 07-24-2019 End: 07-26-2019 Subsequent hospital visit by physician Anastasia Racine Xray Rm 1 [facility] Rad[facility] Comment on above: Acute right-sided lo w back pain with right-sided sciatica Procedures Date Procedure Procedure Detail Performing Clinician Start: 09-20-2023 Ultrasound elastogra phy of liver TAIL DOGGER-C Bibi Chavez Work Phone: Start: 10-16-2022 Colonoscopy TAIL DOGGER-C Marialuisa Chavez Work Phone: Start: 09-11-2019 Allergen spec ige cr ude allergen extract each ELDA CATES Start: 09-11-2019 CELIAC DISEASE PANEL NIRALI CATES Start: 07-24-2019 Radex spine lumbosac ral 2/3 views ELDA CATES Start: 07-24-2019 Radex spine lumbosac ral 2/[address] [facility] Work Phone: Plan of Treatment Date Care Activity Detail Author Start: 10-23-2023 Actin smooth muscle IgG Ab [Units/volume] in Serum [facility] Start: 10-23-2023 Cefuroxime free [Mass/volume] in Serum or Plasma [facility] Start: 10-23-2023 IgG [Mass/volume] in Serum or Plasma [facility] Start: 10-23-2023 Lipoprotein a [Moles/volume] in Serum or Plasma [facility] Start: 10-23-2023 Mitochondria M2 IgG Ab [Units/volume] in Serum [facility] Start: 10-23-2023 [facility] Start: 09-20-2023 [facility] Start: 10-16-2022 Stool culture Stool Culture [facility] Start: 10-16-2022 End: 10-16-2022 [facility] Start: 10-21-2019 Influenza vaccination Flu vaccine (Season Ended) [place], [place] Start: 08-27-2019 End: 08-27-2019 Office Visit 08/27/2019 Office Visit Primary Care Elda Mccain, FREIGHT SEPARATOR - PAINT SPECIALIST [address] [place] [address] [phone] [facility] Start: 12-14-2008 Screening for malignant neoplasm of cervix Cervical cancer screen [place], [place] Start: 12-14-2006 DTaP/Tdap/Td vaccine (1 - Tdap) DTaP/Tdap/Td vaccine (1 - Tdap) [place] Start: 12-14-2002 HIV screening HIV screen [place], [place] Start: 12-14-1988 Varicella vaccine (1 of 2 - 2-dose childhood series) Varicella vaccine (1 of 2 - 2-dose childhood series) [place] Actin smooth muscle IgG Ab [Units/volume] in Serum [facility] Alpha 1 antitrypsin [Mass/volume] in Serum or Plasma [facility] Alpha 1 antitrypsin [Mass/volume] in Serum or Plasma [facility] Alpha 1 antitrypsin phenotyping [Identifier] in Serum or Plasma by Immunofixation [facility] Campylobacter coli+jejuni+upsaliensis DNA [Presence] in Stool by NANCY with non-probe detection [facility] Cefuroxime free [Mass/volume] in Serum or Plasma [facility] Ceruloplasmin [Mass/ volume] in Serum or Plasma [facility] Clostridioides diffi cile toxin A+B tcdA+tcdB genes [Presence] in Stool by NANCY with non-probe detection [facility] Escherichia coli enteropathogenic eae gene [Presence] in Stool by NANCY with non-probe [facility] Escherichia coli enterotoxigenic ltA+st1a+st1b genes [Presence] in Stool by NANCY with [facility] Escherichia coli O15 7 DNA [Presence] in Stool by NANCY with non-probe detection [facility] Escherichia coli Stx 1 and Stx2 toxin stx1+stx2 genes [Presence] in Stool by NANCY with non-probe detection [facility] Hepatitis B core ant ibody measurement [facility] Hepatitis B virus shankar rface Ab [Presence] in Serum [facility] HFE gene mutations f ound [Identifier] in Blood or Tissue by Molecular genetics method Nominal [facility] Infectious agent gen otype identification [facility] Plesiomonas shigello ides DNA [Presence] in Stool by NANCY with non-probe detection [facility] Salmonella enterica+ bongori DNA [Presence] in Stool by NANCY with non-probe detection [facility] Shigella species+EIE C invasion plasmid antigen H ipaH gene [Presence] in Stool by NANCY [facility] US Liver [facility] Vibrio cholerae DNA [Presence] in Stool by NANCY with non-probe detection [facility] Vibrio cholerae+parahaemolyticus+v ulnificus DNA [Presence] in Stool by NANCY with non-probe detection [facility] Yersinia enterocolit ica DNA [Presence] in Stool by NANCY with non-probe detection [facility] Payers Date Payer Category Payer Medicaid [id number] 2019 Unknown [facility] xxxx 2019-Present [address] [place] [id number] xxxxxxxxxxxx [id number] .[id number] 2019 Unknown [id number] 1987 Unknown [id number] 2..840.1.710630.3.579.2.175 1987 Unknown [id number] 2.840.1.504034.3.579.2.175 1987 Unknown [id number] 2..840.1.159220.3.579.2.175 1987 Unknown [id number] 2.16.840.1.907872.3.579.2.173 1987 Unknown [id number] 2.16.840.1.567028.3.579.2.593 1987 Unknown [id number] 2.16.840.1.710866.3.579.2.593 1987 Unknown [id number] 2.16.840.1.970470.3.579.2.593 1987 Unknown [id number] 2.16.840.1.013669.3.579.2.593 1987 Unknown [id number] 2.16.840.1.377795.3.579.2.593 1987 Unknown [id number] 2.16.840.1.685766.3.579.2.593 1987 Unknown [id number] 2.16.840.1.035274.3.579.2.593 1987 Unknown [id number] 2.16.840.1.270556.3.579.2.593 1987 Unknown [id number] 2.16.840.1.873473.3.579.2.593 1987 Unknown [id number] 2.16.840.1.235375.3.579.2.593 1987 Unknown [id number] 2.16.840.1.247173.3.579.2.593 1987 Unknown [id number] 2.16.840.1.562675.3.579.2.727 1987 Unknown [id number] 2.16.840.1.747236.3.579.2.128 6 1987 Unknown [id number] 2.16.840.1.369197.3.579.2.128 6 1987 Unknown [id number] 2.16.840.1.259950.3.579.2.128 6 1987 Unknown [id number] 2.16.840.1.710730.3.579.2.128 6 1987 Unknown [id number] 2.16.840.1.557818.3.579.2.128 6 1987 Unknown [id number] 2.16.840.1.465590.3.579.2.128 6 1987 Unknown [id number] 2.16.840.1.251478.3.579.2.128 6 1987 Unknown [id number] 2.16.840.1.028149.3.579.2.128 6 1987 Unknown [id number] 2.16.840.1.878375.3.579.2.128 6 1987 Unknown [id number] 2.16.840.1.433029.3.579.2.128 6 1987 Unknown [id number] 2.16.840.1.574427.3.579.2.128 6 1987 Unknown [id number] 2.16.840.1.515953.3.579.2.128 6 1987 Unknown [id number] 2.16.840.1.776476.3.579.2.128 6 1987 Unknown [id number] 2.16.840.1.730010.3.579.2.128 6 1987 Unknown [id number] 2.16.840.1.519705.3.579.2.128 6 1987 Unknown [id number] 2.16.840.1.021334.3.579.2.128 6 1987 Unknown [id number] 2.16.840.1.456369.3.579.2.128 6 1987 Unknown [id number] 2.16.840.1.309157.3.579.2.128 6 1959 Self-pay 1959 Unknown [id number] Unknown [id number] 2.16.840.1.991618.3.579.2.531 Unknown [id number] 2.16.840.1.092251.3.579.2.531 Social History Date Type Detail Facility Start: 07-24-2019 Tobacco [facility] Start: 07-24-2019 Alcohol intake Ex-drinker (finding) Britta [facility] Start: 07-24-2019 [facility] SDOH [facility] Sex Assigned At Not on file [facility] Start: 1985 Sex Assigned At Female F [facility] Sex Assigned At Sex Assigned At [facility] [employer] Other Start: 09-12-2023 Tobacco smoking stat [facility] Smoker (finding) [facility] Goals Date Patient Goal Desired Activity /State Evaluation note 09-12-2023 Note Date & Type Note Facility 09-12-2023 Evaluation note Authored September 12, 2023 9:23 am Noted for occasional abdomin al pain however patient does have history of frequent UTI, [facility] Work Phone: Evaluation note 09-12-2023 Note Date & Type Note Facility 09-12-2023 Evaluation note Authored September 12, 2023 9:23 am Noted for occasional abdomin al pain however patient does have history of frequent UTI, Author Yumiko Herbert [facility] Authored October 23, 2023 2:53pm 37-year-old female with hepa tic steatosis came today for follow-up. ALT is elevated Ultrasound on 09/19/2023 showed hepatic steatosis SRIKANTH is negative, viral hepatitis serologies were unremarkable, ceruloplasmin is 23, alpha 1 antitrypsin is 147 Fibroscan showed LSM: 8.1 consistent with Fibrosis stage F2 and CAP 329 consistent with steatosis grade S3 Will check rest of laboratory workup for autoimmune or metabolic etiologies I counseled the patient about weight loss diet and exercise. I discussed with the patient the option of medical treatment/Rezdiffra. Patient would like to think about it and she will call the office regarding her decision. Patient will also decide whether she wants a liver biopsy before starting Rezdiffra [facility] Work Phone: Evaluation note 09-12-2023 Note Date & Type Note Facility 09-12-2023 Evaluation note Authored September 12, 2023 9:23 am Noted for occasional abdomin al pain however patient does have history of frequent UTI, [facility] October 23, 2023 2:53pm 37-year-old female with hepa tic steatosis came today for follow-up. ALT is elevated Ultrasound on 09/19/2023 showed hepatic steatosis SRIKANTH is negative, viral hepatitis serologies were unremarkable, ceruloplasmin is 23, alpha 1 antitrypsin is 147 Fibroscan showed LSM: 8.1 consistent with Fibrosis stage F2 and CAP 329 consistent with steatosis grade S3 Will check rest of laboratory workup for autoimmune or metabolic etiologies Will check ELF I counseled the patient about weight loss diet and exercise. I discussed with the patient the option of medical treatment/Rezdiffra. Patient would like to think about it and she will call the office regarding her decision. Patient will also decide whether she wants a liver biopsy before starting Rezdiffra [facility] Work Phone: History and physical note 10-16-2022 Note Date & Type Note Facility 10-16-2022 History and physical note Note Date/Time October 16, 2022 8:47am [facility] [address] [place] [address] Gastroenterology H&P Signed Patient: Christine Land MR#: [id number] : 1985 Acct:[id number] Age/Sex: 36 / F Adm Date: 3 Loc: Room: Type: [facility] Attending Dr: Moe Villagomez MD Copies to: [...] Villagomez MD Documented By: Moe Villagomez MD 10/16/2246 Signed By: <Electronically signed by Moe Villagomez MD> 10/16/22 0847 [facility] Work Phone: Procedure note 10-16-2022 Note Date & Type Note Facility 10-16-2022 Procedure note [facility] Evaluation note Note Date & Type Note Facility Evaluation note No assessment information availa [facility] Work Phone: Evaluation note Note Date & Type Note Facility Evaluation note No Information [facility] [employer] Other Evaluation note Note Date & Type Note Facility Evaluation note Authored September 12, 2023 9:23 am Noted for occasional abdomin al pain however patient does have history of frequent UTI, [facility] Work Phone: History general Narrative - Reported Note Date & Type Note Facility History general Narrative - Reported Type Medical History ELEVATED CHOLESTEROL Surgical History PARTIAL HYSTERECTOMY Surgical History C SECTION X'S 2 WITH LYSIS OF ADHESIONS AFTER ONE OF THESE Surgical History TUBAL LIGATION Surgical History TONSILLECTOMY Surgical History APPENDECTOMY Hospitalization History SEE ABOVE [employer] Other Hospital Discharge instructions Note Date & [...] problems. -Follow up with PCP. -Office number [phone]. [facility] Work Phone: Advance Directives No Advanced Directives Records FoundDocuments on File Type Date Recorded Patient Biology Tutor Expl anation Advance Directives and Living Will Power of Kitchen Supervisor Advance Directive Response Recorded Date/ Time Advance Directives No October 16, 2022 7:03am Summary Purpose Family History No Family History Records Found Relationship Condition Age at Onset Recorded Date/T kelby grandparent Diabetes mellitus Unknown Malignant neoplasm of colon Unknown Not Specified Ulcerative colitis Unknown family member Heart disease Unknown Relationship Condition Age at Onset Recorded Date/T kelby grandparent Diabetes mellitus Unknown Malignant neoplasm of colon Unknown mother Ulcerative colitis Unknown family member Heart disease Unknown Assessments Diagnosis Acute right-sided low back pain with right-sided sciatica Chief Complaint and Reason for Visit Chief Complaint Change in Bowel Habi ts, Diarrhea Chief Complaint Elevated Liver Enzym es/Functions Reason for Visit Elevated liver enzym es Fatty liver Chief Complaint Elevated Liver Enzym es/Functions Fatty Liver Reason for Visit Elevated liver enzym es Fatty liver Chief Complaint Elevated Liver Enzym es/Functions Fatty Liver 6 week follow up / Fatty Liver Reason for Visit Elevated liver enzym es Fatty liver Elevated liver enzymes Fatty liver Chief Complaint Elevated Liver Enzym es/Functions Fatty Liver 6 week follow up / Fatty Liver K76.0 R74.8 Reason for Visit Elevated liver enzym es Fatty liver Elevated liver enzymes Fatty liver Additional Source Comments INFORMATION SOURCE (unrecogn ized section and content) DATE CREATED AUTHOR 09/14/2019 [facility] DATE CREATED AUTHOR AUTHOR'S ORGANIZ ATION 11/16/2021 [facility] DATE CREATED AUTHOR AUTHOR'S ORGANIZ ATION 11/20/2021 [facility] DATE CREATED AUTHOR AUTHOR'S ORGANIZ ATION 10/02/2022 [facility] DATE CREATED AUTHOR AUTHOR'S ORGANIZ ATION 07/12/2023 [facility] DATE CREATED AUTHOR AUTHOR'S ORGANIZ ATION 10/29/2023 [facility] DATE CREATED AUTHOR AUTHOR'S ORGANIZ ATION 11/05/2023 [facility] Care Teams (unrecognized sec tion and content) Team Status: Active Member Role Status Dates MIKE Guerrero Primary Care Provider Active Team Status: Inactive Member Role Status Dates Moe Villagomez MD Attending Provider Active MIKE Guerrero Primary Care Provider Active Team Status: Inactive Member Role Status Dates MIKE Guerrero Primary Care Provider Active Start: September 12, 2023 End: September 12, 2023 Perry Alberto APRN Attending Provider Active Start: September 12, 2023 End: September 12, 2023 Team Status: Inactive Member Role Status Dates MIKE uGerrero Primary Care Provider Active Start: September 20, 2023 End: September 20, 2023 Perry Alberto APRN Attending Provider Active Start: September 20, 2023 End: September 20, 2023 Team Status: Inactive Member Role Status Dates MIKE Guerrero Primary Care Provider Active Start: October 23, 2023 End: October 23, 2023 Yumiko Herbert MD Attending Provider Active Start: October 23, 2023 End: October 23, 2023 Team Status: Active Member Role Status Dates Barbie Toure MD Primary Care Provider Active Team Status: Inactive Member Role Status Dates Barbie Toure MD Primary Care Provider Active Start: October 23, 2023 End: October 23, 2023 Yumiko Herbert MD Attending Provider Active Start: October 23, 2023 End: October 23, 2023 REASON FOR VISIT (unrecogniz ed section and content) Orders per doctor Goals (unrecognized section and content) Goals may be documented in a n alternate section FOR RECORDS PERTAINING TO PATIENTS WHO ARE [...] BE BASED ON THE PRIMARY CLINICAL RECORDS. [employer] provides no warranty or guarantee of the accuracy or completeness of information in this document.
== END 2023-11-13 19:38 | disposition home or self-care (01) ==
LOC: LAB 19:37
PROVIDERS: PCP Nurse Practitioner Family; Visit Provider Obstetrics & Gynecology
DX: Z01.419 Encounter for gynecological examination (general) (routine) without abnormal findings (principal)
CPT/HCPCS: 88175